=== PATIENT | male | born 1965 | race Caucasian/White ===

== ENCOUNTER → 2019-12-10 10:03 | Outpatient (BNVA) | payer OTHER, SELFPAY | PROVIDERS: Family Provider Electrodiagnostic Medicine; PCP Electrodiagnostic Medicine; Visit Provider Anesthesiology | DX: G89.29 Other chronic pain (principal); M25.511 Pain in right shoulder; M50.10 Cervical disc disorder with radiculopathy, unspecified cervical region; M05.9 Rheumatoid arthritis with rheumatoid factor, unspecified; Z79.891 Long term (current) use of opiate analgesic | CPT/HCPCS: 99214 ==

== ENCOUNTER → 2020-01-07 16:05 | Outpatient (BNVA) | payer MEDICARE, OTHER, SELFPAY | PROVIDERS: Family Provider Electrodiagnostic Medicine; PCP Electrodiagnostic Medicine; Visit Provider Internal Medicine Rheumatology | DX: M05.9 Rheumatoid arthritis with rheumatoid factor, unspecified (principal); Z79.899 Other long term (current) drug therapy; Z11.59 Encounter for screening for other viral diseases | CPT/HCPCS: 36415; 80076; 82306; 82565; 85651; 86140; 99214 ==

== ENCOUNTER → 2020-01-07 17:28 | Outpatient (BNVA) | payer MEDICARE, OTHER, SELFPAY | PROVIDERS: Family Provider Electrodiagnostic Medicine; PCP Electrodiagnostic Medicine; Visit Provider Internal Medicine Rheumatology | DX: Z79.899 Other long term (current) drug therapy (principal); M05.9 Rheumatoid arthritis with rheumatoid factor, unspecified; Z71.89 Other specified counseling | CPT/HCPCS: 85025 ==

== ENCOUNTER → 2020-01-29 08:47 | Outpatient (BNVA) | payer OTHER, SELFPAY | PROVIDERS: Family Provider Electrodiagnostic Medicine; PCP Electrodiagnostic Medicine; Visit Provider Anesthesiology | DX: G89.29 Other chronic pain (principal); M25.511 Pain in right shoulder; M50.10 Cervical disc disorder with radiculopathy, unspecified cervical region; M51.17 Intervertebral disc disorders with radiculopathy, lumbosacral region; Z79.891 Long term (current) use of opiate analgesic | CPT/HCPCS: 99214 ==

== ENCOUNTER → 2020-05-20 11:51 | Outpatient (BNVA) | payer MEDICARE, OTHER, SELFPAY | PROVIDERS: Family Provider Electrodiagnostic Medicine; PCP Electrodiagnostic Medicine; Visit Provider Internal Medicine Rheumatology | DX: M05.79 Rheumatoid arthritis with rheumatoid factor of multiple sites without organ or systems involvement (principal); Z79.899 Other long term (current) drug therapy | CPT/HCPCS: 36415; 80076; 82565; 85025; 85651; 86140; 99214 ==

== ENCOUNTER → 2020-06-03 09:24 | Outpatient (BNVA) | payer OTHER, SELFPAY | PROVIDERS: Family Provider Electrodiagnostic Medicine; PCP Electrodiagnostic Medicine; Visit Provider Anesthesiology | DX: G89.29 Other chronic pain (principal); M50.10 Cervical disc disorder with radiculopathy, unspecified cervical region; M25.511 Pain in right shoulder; M51.17 Intervertebral disc disorders with radiculopathy, lumbosacral region; Z79.891 Long term (current) use of opiate analgesic | CPT/HCPCS: 99214 ==

== ENCOUNTER → 2020-07-28 09:53 | Outpatient (BNVA) | payer MEDICARE, OTHER, SELFPAY | PROVIDERS: Family Provider Electrodiagnostic Medicine; PCP Electrodiagnostic Medicine; Visit Provider Internal Medicine Rheumatology | DX: M05.79 Rheumatoid arthritis with rheumatoid factor of multiple sites without organ or systems involvement (principal); M50.10 Cervical disc disorder with radiculopathy, unspecified cervical region; Z79.52 Long term (current) use of systemic steroids; Z79.899 Other long term (current) drug therapy | CPT/HCPCS: 99213 ==

== ENCOUNTER → 2020-07-29 10:00 | Outpatient (BNVA) | payer OTHER, SELFPAY | PROVIDERS: Family Provider Electrodiagnostic Medicine; PCP Electrodiagnostic Medicine; Visit Provider Anesthesiology | DX: G89.29 Other chronic pain (principal); M25.511 Pain in right shoulder; M50.10 Cervical disc disorder with radiculopathy, unspecified cervical region; M51.17 Intervertebral disc disorders with radiculopathy, lumbosacral region; Z79.891 Long term (current) use of opiate analgesic | CPT/HCPCS: 99214 ==

== ENCOUNTER → 2020-09-30 09:21 | Outpatient (BNVA) | payer OTHER, SELFPAY | PROVIDERS: Family Provider Electrodiagnostic Medicine; PCP Electrodiagnostic Medicine; Visit Provider Anesthesiology | DX: G89.29 Other chronic pain (principal); M25.511 Pain in right shoulder; M05.9 Rheumatoid arthritis with rheumatoid factor, unspecified; M51.17 Intervertebral disc disorders with radiculopathy, lumbosacral region; M50.10 Cervical disc disorder with radiculopathy, unspecified cervical region; Z79.891 Long term (current) use of opiate analgesic | CPT/HCPCS: 99214 ==

== ENCOUNTER → 2020-10-19 11:21 | Outpatient (BNVA) | payer OTHER, SELFPAY | PROVIDERS: Family Provider Electrodiagnostic Medicine; PCP Electrodiagnostic Medicine; Visit Provider Internal Medicine Rheumatology | DX: Z79.899 Other long term (current) drug therapy (principal) | CPT/HCPCS: 36415; 80076; 82565; 85025; 85651; 86140 ==

== ENCOUNTER → 2020-10-27 09:35 | Outpatient (BNVA) | payer MEDICARE, OTHER, SELFPAY | PROVIDERS: Family Provider Electrodiagnostic Medicine; PCP Electrodiagnostic Medicine; Visit Provider Internal Medicine Rheumatology | DX: M05.79 Rheumatoid arthritis with rheumatoid factor of multiple sites without organ or systems involvement (principal); Z79.52 Long term (current) use of systemic steroids; Z87.891 Personal history of nicotine dependence; Z79.899 Other long term (current) drug therapy | CPT/HCPCS: 99213 ==

== ENCOUNTER → 2020-11-26 10:14 | Outpatient (BNVA) | payer OTHER, SELFPAY | PROVIDERS: Family Provider Electrodiagnostic Medicine; PCP Electrodiagnostic Medicine; Visit Provider Anesthesiology | DX: G89.29 Other chronic pain (principal); M25.511 Pain in right shoulder; M50.10 Cervical disc disorder with radiculopathy, unspecified cervical region; M51.17 Intervertebral disc disorders with radiculopathy, lumbosacral region; Z79.891 Long term (current) use of opiate analgesic; Z79.899 Other long term (current) drug therapy | CPT/HCPCS: 99213 ==

== ENCOUNTER 2020-12-16 09:47 | Outpatient (CLI) | payer MEDICARE, OTHER, SELFPAY ==
--- NOTE | 2020-12-16 10:19 | ECG_ITS ---
[facility] Test Date: 2020-12-16 Pat Name: Tai Delgado Department: Room: Gender: Male Item Processing Clerk: : 1965 Requested By: Tony Joe Order Number: [id number] Navi MD: Edy Lund M.D. Measurements Intervals [place] Rate: 69 P: 56 NV: 142 QRS: 37 QRSD: 84 T: 48 QT: 337 QTc: 363 Interpretive Statements SINUS RHYTHM No previous ECG available for comparison Electronically Signed On 12-17-2020 18:07:45 ACCOUNTANT AUDITOR by Edy Lund M.D. [email or web address]
== END 2020-12-16 09:48 | disposition home or self-care (01) ==
LOC: RT 09:57
PROVIDERS: PCP Electrodiagnostic Medicine; Visit Provider Internal Medicine Rheumatology
DX: R00.2 Palpitations (principal); M05.79 Rheumatoid arthritis with rheumatoid factor of multiple sites without organ or systems involvement; Z79.899 Other long term (current) drug therapy
CPT/HCPCS: 36415; 80076; 81001; 82565; 82570; 84156; 85025; 85651; 86140; 93005

== ENCOUNTER → 2021-01-20 09:20 | Outpatient (BNVA) | payer OTHER, SELFPAY | PROVIDERS: PCP Electrodiagnostic Medicine; Visit Provider Anesthesiology | DX: G89.29 Other chronic pain (principal); M25.511 Pain in right shoulder; M50.10 Cervical disc disorder with radiculopathy, unspecified cervical region; M51.17 Intervertebral disc disorders with radiculopathy, lumbosacral region; Z79.891 Long term (current) use of opiate analgesic; Z79.899 Other long term (current) drug therapy | CPT/HCPCS: 99214 ==

== ENCOUNTER → 2021-03-11 12:48 | Outpatient (BNVA) | payer MEDICARE, OTHER, SELFPAY | PROVIDERS: PCP Electrodiagnostic Medicine; Visit Provider Internal Medicine Rheumatology | DX: M05.79 Rheumatoid arthritis with rheumatoid factor of multiple sites without organ or systems involvement (principal); Z79.899 Other long term (current) drug therapy; Z87.891 Personal history of nicotine dependence | CPT/HCPCS: 99214 ==

== ENCOUNTER → 2021-03-31 09:54 | Outpatient (BNVA) | payer OTHER, SELFPAY | PROVIDERS: PCP Electrodiagnostic Medicine; Visit Provider Anesthesiology | DX: G89.29 Other chronic pain (principal); M51.17 Intervertebral disc disorders with radiculopathy, lumbosacral region; M50.10 Cervical disc disorder with radiculopathy, unspecified cervical region; M25.511 Pain in right shoulder; Z79.899 Other long term (current) drug therapy; Z79.891 Long term (current) use of opiate analgesic; Z87.891 Personal history of nicotine dependence | CPT/HCPCS: 99214 ==

== ENCOUNTER → 2021-06-02 09:13 | Outpatient (BNVA) | payer OTHER, SELFPAY | PROVIDERS: PCP Electrodiagnostic Medicine; Visit Provider Anesthesiology | DX: G89.29 Other chronic pain (principal); M25.511 Pain in right shoulder; M50.10 Cervical disc disorder with radiculopathy, unspecified cervical region; M51.17 Intervertebral disc disorders with radiculopathy, lumbosacral region; Z79.891 Long term (current) use of opiate analgesic; Z79.899 Other long term (current) drug therapy | CPT/HCPCS: 99213 ==

== ENCOUNTER → 2021-06-17 09:09 | Outpatient (BNVA) | payer MEDICARE, OTHER, SELFPAY | PROVIDERS: PCP Electrodiagnostic Medicine; Visit Provider Internal Medicine Rheumatology | DX: Z79.899 Other long term (current) drug therapy (principal); M05.79 Rheumatoid arthritis with rheumatoid factor of multiple sites without organ or systems involvement; M05.9 Rheumatoid arthritis with rheumatoid factor, unspecified; Z71.89 Other specified counseling | CPT/HCPCS: 36415; 80076; 82565; 85025; 86140 ==

== ENCOUNTER → 2021-07-01 10:25 | Outpatient (BNVA) | payer MEDICARE, OTHER, SELFPAY | PROVIDERS: PCP Electrodiagnostic Medicine; Visit Provider Internal Medicine Rheumatology | DX: M05.79 Rheumatoid arthritis with rheumatoid factor of multiple sites without organ or systems involvement (principal); Z79.899 Other long term (current) drug therapy; M19.90 Unspecified osteoarthritis, unspecified site; Z79.52 Long term (current) use of systemic steroids; Z71.89 Other specified counseling; Z87.891 Personal history of nicotine dependence | CPT/HCPCS: 36415; 73130; 73630; 86431; 99214 ==

== ENCOUNTER 2021-07-01 13:49 | Outpatient (CLI) | payer MEDICARE, OTHER, SELFPAY ==
--- NOTE | 2021-07-01 14:11 | XR_ITS ---
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 Findings: No fractures or dislocations are seen. No bone destruction or erosion is noted. The joint spaces and soft tissues are normal. XR/XR foot RT min 3V* [id number] Impression: Negative right foot.
--- NOTE | 2021-07-01 14:11 | XR_ITS ---
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 Findings: No fractures or dislocations are seen. No bone destruction or erosion is noted. The joint spaces and soft tissues are normal. No periarticular demineralization or calcifications are seen. XR/XR foot LT min 3V* [id number] Impression: Negative left foot.
--- NOTE | 2021-07-01 14:11 | XR_ITS ---
WS: [email or web address] Left hand, 3 views, 07/01/2021 Clinical Data: M05.79 - Rheumatoid arthritis with rheumatoid factor of m... Comparison: None. Findings: No fractures or dislocations are seen. The soft tissues are unremarkable. The joint spaces are normal There is osteoarthritic change of the head of the left first metacarpal. No periarticular demineraliz ation or calcifications are seen. XR/XR hand LT min 3V* [id number] Impression: Minimal osteoarthritic change at the head of the left first metacarpal.
--- NOTE | 2021-07-01 14:11 | XR_ITS ---
WS: [email or web address] Right hand, 3 views, 07/01/2021 Clinical Data: M05.79 - Rheumatoid arthritis with rheumatoid factor of m... Comparison: None. Findings: No fractures or dislocations are seen. The soft tissues are unremarkable. The joint space s are normal No periarticular demineralization or calcifications are seen. XR/XR hand RT min 3V* [id number] Impression: Negative right hand.
== END 2021-07-01 13:50 | disposition home or self-care (01) ==
LOC: RAD 14:06
PROVIDERS: PCP Electrodiagnostic Medicine; Visit Provider Internal Medicine Rheumatology
DX: M05.79 Rheumatoid arthritis with rheumatoid factor of multiple sites without organ or systems involvement (principal); Z79.899 Other long term (current) drug therapy
CPT/HCPCS: 73130; 73630; 86431

== ENCOUNTER → 2021-07-28 09:38 | Outpatient (BNVA) | payer OTHER, SELFPAY | PROVIDERS: PCP Electrodiagnostic Medicine; Visit Provider Anesthesiology | DX: G89.29 Other chronic pain (principal); M25.511 Pain in right shoulder; M51.17 Intervertebral disc disorders with radiculopathy, lumbosacral region; M50.10 Cervical disc disorder with radiculopathy, unspecified cervical region; Z79.891 Long term (current) use of opiate analgesic; Z87.891 Personal history of nicotine dependence | CPT/HCPCS: 99213 ==

== ENCOUNTER → 2021-09-28 09:01 | Outpatient (BNVA) | payer OTHER, SELFPAY | PROVIDERS: PCP Electrodiagnostic Medicine; Visit Provider Anesthesiology | DX: G89.29 Other chronic pain (principal); M25.511 Pain in right shoulder; M50.10 Cervical disc disorder with radiculopathy, unspecified cervical region; Z79.899 Other long term (current) drug therapy; Z79.891 Long term (current) use of opiate analgesic | CPT/HCPCS: 99213 ==

== ENCOUNTER → 2021-10-05 10:03 | Outpatient (BNVA) | payer OTHER, SELFPAY | PROVIDERS: PCP Electrodiagnostic Medicine; Visit Provider Internal Medicine Rheumatology | DX: M05.79 Rheumatoid arthritis with rheumatoid factor of multiple sites without organ or systems involvement (principal); Z79.899 Other long term (current) drug therapy | CPT/HCPCS: 36415; 80076; 82565; 85025; 86140 ==

== ENCOUNTER 2021-10-19 14:55 | Outpatient (CLI) | payer MEDICARE, OTHER, SELFPAY ==
[2021-10-19 15:15] VITALS: BP 145/82; PULSE 82; RESP 18; TEMP 36.8; O2SAT 98
[2021-10-19] MEDS: acetaminophen 325 mg Tablet 650 MG PO (15:37)
[2021-10-19] MEDS: sodium chloride 0.9% 250 ML 75 ML IV (15:40)
[2021-10-19] MEDS: diphenhydrAMINE 50 mg/mL SDV 1mL 25 MG IV (15:41)
[2021-10-19 16:33] VITALS: BP 158/84; PULSE 81; RESP 18; TEMP 36.8; O2SAT 99
== END 2021-10-19 14:56 | disposition home or self-care (01) ==
PROVIDERS: PCP Electrodiagnostic Medicine; Referring Provider Internal Medicine Rheumatology; Visit Provider Internal Medicine Rheumatology
DX: M05.79 Rheumatoid arthritis with rheumatoid factor of multiple sites without organ or systems involvement (principal)
CPT/HCPCS: 96365; 96375; J1200; J1602; J7050

== ENCOUNTER 2021-11-16 13:24 | Outpatient (CLI) | payer MEDICARE, OTHER, SELFPAY ==
[2021-11-16 13:43] VITALS: BP 130/77; PULSE 80; RESP 18; TEMP 37.1; O2SAT 97
[2021-11-16] MEDS: acetaminophen 325 mg Tablet 650 MG PO (14:25)
[2021-11-16] MEDS: sodium chloride 0.9% 250 ML 75 ML IV (14:27)
[2021-11-16] MEDS: diphenhydrAMINE 50 mg/mL SDV 1mL 25 MG IVP (14:28)
--- NOTE | 2021-11-16 14:48 | PC.NURSE ---
Pt presented to infusion suite with a nodule on Right arm lateral to AC space. He previously c/o a nodule in the same vicinity at last month's visit, but was cleared for infusion. He has an appointment with an orthopedist on 11/25/21. The area is slightly reddened, with no warmth to the touch. Pt is afebrile. I contacted Dr. Gao, and he spoke with the patient. Per Dr. Gao,it was decided after their conversation to proceed with the infusion today, and follow-up for his next infusion in 8 weeks.
[2021-11-16 15:14] VITALS: BP 138/90; PULSE 76; RESP 18; TEMP 36.9; O2SAT 98
== END 2021-11-16 13:25 | disposition home or self-care (01) ==
PROVIDERS: PCP Electrodiagnostic Medicine; Visit Provider Internal Medicine Rheumatology
DX: M05.79 Rheumatoid arthritis with rheumatoid factor of multiple sites without organ or systems involvement (principal)
CPT/HCPCS: 96365; 96375; J1200; J1602; J7050

== ENCOUNTER 2021-11-30 11:16 | Outpatient (CLI) | payer MEDICARE, OTHER, SELFPAY ==
[2021-11-30 11:46] LABS: Basophils % 0.6 %; Eosinophils # 0.4 10^3/uL (0.0-0.8); Eosinophils % 5.4 %; Hemoglobin 14.6 g/dL (11.7-16.6); Lymphocytes # 1.5 10^3/uL (0.8-4.8); Lymphocytes % 21.2 %; Mean Corpuscular HGB Conc 33.2 g/dL (30.0-36.0); Mean Corpuscular Hemoglobin 30.4 pg (28.0-34.0); Mean Corpuscular Volume 91.5 fl (80-94); Mean Platelet Volume 8.6 fL (7.4-10.4); Monocytes # 0.5 10^3/uL (0.2-0.9); Monocytes % 7.3 %; Neutrophils # 4.55 10^3/uL (1.8-7.7); Neutrophils % 65.2 %; Nucleated Red Blood Cells % 0 %; Platelet Count 303 10^3/cmm (130-400); Red Blood Count 4.81 10^6/uL (4.1-5.3); Red Cell Distribution Width 11.9 % (12.1-15.1)
[2021-11-30 12:12] LABS: Alanine Aminotransferase 26 U/L (0-41); Albumin Level 3.6 g/dL (3.5-5.2); Alkaline Phosphatase 92 IU/L (40-130); Aspartate Amino Transferase 18 U/L (0-40); C Reactive Protein 7.1 mg/L (0.0-4.9); Globulin 2.8 g/dL (1.3-4.6); Glomerular Filtration Rate 86.7 mL/min (90-130); Total Bilirubin 0.2 mg/dL (0.15-1.2); Total Protein 6.4 g/dL (6.6-8.7)
== END 2021-11-30 11:17 | disposition home or self-care (01) ==
PROVIDERS: PCP Electrodiagnostic Medicine; Visit Provider Internal Medicine Rheumatology
DX: M05.9 Rheumatoid arthritis with rheumatoid factor, unspecified (principal); Z79.899 Other long term (current) drug therapy; M19.90 Unspecified osteoarthritis, unspecified site
CPT/HCPCS: 36415; 80076; 82565; 85025; 86140

== ENCOUNTER → 2021-12-27 11:04 | Outpatient (BNVA) | payer MEDICARE, OTHER, SELFPAY | PROVIDERS: PCP Electrodiagnostic Medicine; Visit Provider Internal Medicine Rheumatology | DX: M05.79 Rheumatoid arthritis with rheumatoid factor of multiple sites without organ or systems involvement (principal); Z79.899 Other long term (current) drug therapy; Z79.52 Long term (current) use of systemic steroids; Z71.89 Other specified counseling | CPT/HCPCS: 99214 ==

== ENCOUNTER 2022-01-05 11:27 | Outpatient (CLI) | payer MEDICARE, OTHER, SELFPAY ==
[2022-01-05 11:56] VITALS: BP 111/69; PULSE 87; RESP 18; TEMP 37.1; O2SAT 95
[2022-01-05 12:11] LABS: Basophils % 0.5 %; Eosinophils # 0.1 10^3/uL (0.0-0.8); Eosinophils % 0.6 %; Hematocrit 46.3 % (42.0-52.0); Hemoglobin 14.7 g/dL (11.7-16.6); Lymphocytes # 0.7 10^3/uL (0.8-4.8); Lymphocytes % 7.8 %; Mean Corpuscular HGB Conc 31.7 g/dL (30.0-36.0); Mean Corpuscular Hemoglobin 28.9 pg (28.0-34.0); Mean Corpuscular Volume 91.1 fl (80-94); Mean Platelet Volume 8.7 fL (7.4-10.4); Monocytes # 0.4 10^3/uL (0.2-0.9); Monocytes % 4.2 %; Neutrophils # 7.67 10^3/uL (1.8-7.7); Neutrophils % 86.6 %; Nucleated Red Blood Cells % 0 %; Platelet Count 315 10^3/cmm (130-400); Red Blood Count 5.08 10^6/uL (4.1-5.3); Red Cell Distribution Width 12.4 % (12.1-15.1); White Blood Count 8.9 10^3/uL (4.0-10.0)
[2022-01-05 12:18] LABS: Erythrocyte Sedimentation Rate 47 mm/hr (0-10)
[2022-01-05] MEDS: sodium chloride 0.9% 250 ML 50 ML IV (12:18)
[2022-01-05] MEDS: acetaminophen 325 mg Tablet 650 MG PO (12:21)
[2022-01-05] MEDS: diphenhydrAMINE 50 mg/mL SDV 1mL 25 MG IV (12:22)
[2022-01-05 12:25] LABS: Alanine Aminotransferase 20 U/L (0-41); Albumin Level 3.8 g/dL (3.5-5.2); Alkaline Phosphatase 111 IU/L (40-130); Aspartate Amino Transferase 16 U/L (0-40); Globulin 3.5 g/dL (1.3-4.6); Glomerular Filtration Rate 86.7 mL/min (90-130); Total Bilirubin 0.3 mg/dL (0.15-1.2); Total Protein 7.3 g/dL (6.6-8.7)
[2022-01-05 13:13] VITALS: BP 111/67; PULSE 82; RESP 18; TEMP 36.8; O2SAT 97
== END 2022-01-05 11:28 | disposition home or self-care (01) ==
PROVIDERS: PCP Electrodiagnostic Medicine; Referring Provider Internal Medicine Rheumatology; Visit Provider Internal Medicine Rheumatology
DX: M05.79 Rheumatoid arthritis with rheumatoid factor of multiple sites without organ or systems involvement (principal); Z79.899 Other long term (current) drug therapy
CPT/HCPCS: 80076; 82565; 85025; 85651; 96365; 96375; J1200; J1602; J7050

== ENCOUNTER 2022-03-02 10:41 | Outpatient (CLI) | payer MEDICARE, OTHER, SELFPAY ==
[2022-03-02 10:55] VITALS: BP 135/82; PULSE 79; RESP 18; TEMP 36.8; O2SAT 96
[2022-03-02 11:13] LABS: Basophils % 0.4 %; Eosinophils % 0.2 %; Hematocrit 44.4 % (42.0-52.0); Hemoglobin 14.4 g/dL (11.7-16.6); Lymphocytes # 0.7 10^3/uL (0.8-4.8); Lymphocytes % 6.4 %; Mean Corpuscular HGB Conc 32.4 g/dL (30.0-36.0); Mean Corpuscular Hemoglobin 28.4 pg (28.0-34.0); Mean Corpuscular Volume 87.6 fl (80-94); Mean Platelet Volume 8.3 fL (7.4-10.4); Monocytes # 0.4 10^3/uL (0.2-0.9); Monocytes % 4.2 %; Neutrophils # 9.19 10^3/uL (1.8-7.7); Neutrophils % 88.4 %; Nucleated Red Blood Cells % 0 %; Platelet Count 273 10^3/cmm (130-400); Red Blood Count 5.07 10^6/uL (4.1-5.3); Red Cell Distribution Width 13.2 % (12.1-15.1); White Blood Count 10.4 10^3/uL (4.0-10.0)
[2022-03-02] MEDS: acetaminophen 325 mg Tablet 650 MG PO (11:13)
[2022-03-02] MEDS: diphenhydrAMINE 50 mg/mL SDV 1mL 25 MG IV (11:15)
[2022-03-02] MEDS: sodium chloride 0.9% 250 ML 50 ML IV (11:15)
[2022-03-02 11:22] LABS: Erythrocyte Sedimentation Rate 35 mm/hr (0-10)
[2022-03-02 11:36] LABS: Alanine Aminotransferase 24 U/L (0-41); Albumin Level 3.6 g/dL (3.5-5.2); Alkaline Phosphatase 92 IU/L (40-130); Aspartate Amino Transferase 14 U/L (0-40); Globulin 3.4 g/dL (1.3-4.6); Glomerular Filtration Rate 99.3 mL/min (90-130); Total Bilirubin 0.3 mg/dL (0.15-1.2)
[2022-03-02 12:06] VITALS: BP 113/76; PULSE 70; RESP 18; TEMP 36.5; O2SAT 95
== END 2022-03-02 10:42 | disposition home or self-care (01) ==
PROVIDERS: PCP Electrodiagnostic Medicine; Referring Provider Internal Medicine Rheumatology; Visit Provider Internal Medicine Rheumatology
DX: M05.79 Rheumatoid arthritis with rheumatoid factor of multiple sites without organ or systems involvement (principal); Z79.899 Other long term (current) drug therapy
CPT/HCPCS: 80076; 82565; 85025; 85651; 96365; 96375; J1200; J1602; J7050

== ENCOUNTER → 2022-04-20 10:38 | Outpatient (BNVA) | payer MEDICARE, OTHER, SELFPAY | PROVIDERS: PCP Electrodiagnostic Medicine; Visit Provider Internal Medicine Rheumatology | DX: M05.79 Rheumatoid arthritis with rheumatoid factor of multiple sites without organ or systems involvement (principal); L40.0 Psoriasis vulgaris; Z79.899 Other long term (current) drug therapy; Z79.52 Long term (current) use of systemic steroids; Z71.89 Other specified counseling | CPT/HCPCS: 99214 ==

== ENCOUNTER 2022-04-27 09:51 | Outpatient (CLI) | payer MEDICARE, OTHER, SELFPAY ==
[2022-04-27 10:45] VITALS: BP 121/71; PULSE 68; RESP 18; TEMP 36.9; O2SAT 95
[2022-04-27] MEDS: sodium chloride 0.9% 250 ML 50 ML IV (10:48)
[2022-04-27 10:49] LABS: Alanine Aminotransferase 17 U/L (0-41); Albumin Level 3.6 g/dL (3.5-5.2); Alkaline Phosphatase 95 IU/L (40-130); Aspartate Amino Transferase 12 U/L (0-40); Globulin 2.9 g/dL (1.3-4.6); Glomerular Filtration Rate 86.7 mL/min (90-130); Total Bilirubin 0.3 mg/dL (0.15-1.2); Total Protein 6.5 g/dL (6.6-8.7)
[2022-04-27] MEDS: acetaminophen 325 mg Tablet 650 MG PO (10:49)
[2022-04-27] MEDS: diphenhydrAMINE 50 mg/mL SDV 1mL 25 MG IVP (10:50)
[2022-04-27 11:06] LABS: Basophils # 0.1 10^3/uL (0.0-0.1); Basophils % 0.4 %; Eosinophils # 0.1 10^3/uL (0.0-0.8); Eosinophils % 0.4 %; Erythrocyte Sedimentation Rate 28 mm/hr (0-10); Hematocrit 43.3 % (42.0-52.0); Hemoglobin 14.2 g/dL (11.7-16.6); Lymphocytes # 0.7 10^3/uL (0.8-4.8); Lymphocytes % 6.2 %; Mean Corpuscular HGB Conc 32.8 g/dL (30.0-36.0); Mean Corpuscular Hemoglobin 28.9 pg (28.0-34.0); Mean Platelet Volume 8.6 fL (7.4-10.4); Monocytes # 0.5 10^3/uL (0.2-0.9); Monocytes % 4.5 %; Neutrophils # 10.12 10^3/uL (1.8-7.7); Neutrophils % 87.9 %; Nucleated Red Blood Cells % 0 %; Platelet Count 279 10^3/cmm (130-400); Red Blood Count 4.92 10^6/uL (4.1-5.3); Red Cell Distribution Width 13.7 % (12.1-15.1); White Blood Count 11.5 10^3/uL (4.0-10.0)
[2022-04-27 11:59] VITALS: BP 134/75; PULSE 62; RESP 18; TEMP 36.3; O2SAT 98
== END 2022-04-27 09:52 | disposition home or self-care (01) ==
PROVIDERS: PCP Electrodiagnostic Medicine; Referring Provider Internal Medicine Rheumatology; Visit Provider Internal Medicine Rheumatology
DX: M05.79 Rheumatoid arthritis with rheumatoid factor of multiple sites without organ or systems involvement (principal); Z79.899 Other long term (current) drug therapy
CPT/HCPCS: 80076; 82565; 85025; 85651; 96365; 96375; J1200; J1602; J7050

== ENCOUNTER → 2022-06-14 15:17 | Outpatient (BNVA) | payer MEDICARE, OTHER, SELFPAY | PROVIDERS: PCP Electrodiagnostic Medicine; Visit Provider Internal Medicine Rheumatology | DX: M05.9 Rheumatoid arthritis with rheumatoid factor, unspecified (principal) | CPT/HCPCS: 96372; J1030 ==

== ENCOUNTER 2022-06-27 11:12 | Outpatient (CLI) | payer MEDICARE, OTHER, SELFPAY ==
[2022-06-27 11:29] VITALS: BP 129/75; PULSE 70; RESP 18; TEMP 36.4; O2SAT 96
[2022-06-27 12:07] LABS: Basophils % 0.2 %; Eosinophils % 0.2 %; Hematocrit 44.5 % (42.0-52.0); Hemoglobin 14.5 g/dL (11.7-16.6); Lymphocytes # 0.6 10^3/uL (0.8-4.8); Lymphocytes % 4.8 %; Mean Corpuscular HGB Conc 32.6 g/dL (30.0-36.0); Mean Corpuscular Hemoglobin 28.9 pg (28.0-34.0); Mean Corpuscular Volume 88.8 fl (80-94); Mean Platelet Volume 8.4 fL (7.4-10.4); Monocytes # 0.6 10^3/uL (0.2-0.9); Monocytes % 4.9 %; Neutrophils # 11.39 10^3/uL (1.8-7.7); Neutrophils % 89.3 %; Nucleated Red Blood Cells % 0 %; Platelet Count 263 10^3/cmm (130-400); Red Blood Count 5.01 10^6/uL (4.1-5.3); Red Cell Distribution Width 13.2 % (12.1-15.1); White Blood Count 12.8 10^3/uL (4.0-10.0)
[2022-06-27 12:18] LABS: Erythrocyte Sedimentation Rate 32 mm/hr (0-10)
[2022-06-27] MEDS: sodium chloride 0.9% 250 ML 50 ML IV (12:18)
[2022-06-27] MEDS: acetaminophen 325 mg Tablet 650 MG PO (12:18)
[2022-06-27] MEDS: diphenhydrAMINE 50 mg/mL SDV 1mL 25 MG IVP ×2 (12:20→13:27)
[2022-06-27 12:41] LABS: Alanine Aminotransferase 17 U/L (0-41); Albumin Level 3.7 g/dL (3.5-5.2); Alkaline Phosphatase 95 IU/L (40-130); Aspartate Amino Transferase 15 U/L (0-40); Globulin 2.7 g/dL (1.3-4.6); Glomerular Filtration Rate 99.3 mL/min (90-130); Total Bilirubin 0.3 mg/dL (0.15-1.2); Total Protein 6.4 g/dL (6.6-8.7)
[2022-06-27 13:22] VITALS: BP 155/77; PULSE 75; RESP 18; TEMP 36.3; O2SAT 98
[2022-06-27 14:18] VITALS: BP 113/69; PULSE 67; RESP 18; TEMP 36.4; O2SAT 97
--- NOTE | 2022-06-27 14:47 | PC.NURSE ---
Pt experienced an infusion reaction after Orencia was administered. Dr. Gao's office was contacted, and benadryl / solumedrol was administered. Pt's v/s were monitored and he was retained in the infusion suite for observation. S/S of ongoing problems to report after leaving infusion suite were discussed, and per Dr. Gao, patient is instructed to call his office within 2 days to report condition. Any acute exacerbations, patient is to report to the Emergency Department. Patient voices understanding.
[2022-06-27 15:00] VITALS: BP 130/79; PULSE 67; RESP 18; TEMP 36.4; O2SAT 98
== END 2022-06-27 11:13 | disposition home or self-care (01) ==
PROVIDERS: PCP Electrodiagnostic Medicine; Referring Provider Internal Medicine Rheumatology; Visit Provider Internal Medicine Rheumatology
DX: M06.9 Rheumatoid arthritis, unspecified (principal); Z79.899 Other long term (current) drug therapy
CPT/HCPCS: 80076; 82565; 85025; 85651; 96365; 96375; 96376; J0129; J1200; J2930; J7050

== ENCOUNTER 2022-08-01 12:20 | Outpatient (CLI) | payer MEDICARE, OTHER, SELFPAY ==
[2022-08-01 13:05] VITALS: BP 132/77; PULSE 78; RESP 18; TEMP 36.6; O2SAT 96
[2022-08-01] MEDS: sodium chloride 0.9% 250 ML 50 ML IV (13:44)
[2022-08-01] MEDS: acetaminophen 325 mg Tablet 650 MG PO (13:46)
[2022-08-01] MEDS: diphenhydrAMINE 50 mg/mL SDV 1mL IVP (13:47)
[2022-08-01 15:02] VITALS: BP 146/80; PULSE 72; RESP 18; TEMP 36.3; O2SAT 95
== END 2022-08-01 12:21 | disposition home or self-care (01) ==
PROVIDERS: PCP Electrodiagnostic Medicine; Visit Provider Internal Medicine Rheumatology
DX: M06.9 Rheumatoid arthritis, unspecified (principal)
CPT/HCPCS: 96365; 96375; J0129; J1200; J2930; J7050

== ENCOUNTER → 2022-08-16 10:05 | Outpatient (BNVA) | payer MEDICARE, OTHER, SELFPAY | PROVIDERS: PCP Electrodiagnostic Medicine; Visit Provider Internal Medicine Rheumatology | DX: M05.79 Rheumatoid arthritis with rheumatoid factor of multiple sites without organ or systems involvement (principal); Z71.89 Other specified counseling; Z79.899 Other long term (current) drug therapy; Z87.2 Personal history of diseases of the skin and subcutaneous tissue; Z79.52 Long term (current) use of systemic steroids | CPT/HCPCS: 99214 ==

== ENCOUNTER 2022-08-29 11:13 | Outpatient (CLI) | payer MEDICARE, OTHER, SELFPAY ==
[2022-08-29 11:27] VITALS: BP 134/82; PULSE 72; RESP 18; TEMP 37.3; O2SAT 98
[2022-08-29 11:53] LABS: Basophils % 0.4 %; Eosinophils % 0.4 %; Hematocrit 45.7 % (42.0-52.0); Hemoglobin 14.5 g/dL (11.7-16.6); Lymphocytes # 0.7 10^3/uL (0.8-4.8); Lymphocytes % 7.4 %; Mean Corpuscular HGB Conc 31.7 g/dL (30.0-36.0); Mean Corpuscular Hemoglobin 28.8 pg (28.0-34.0); Mean Corpuscular Volume 90.7 fl (80-94); Mean Platelet Volume 8.7 fL (7.4-10.4); Monocytes # 0.4 10^3/uL (0.2-0.9); Monocytes % 4.2 %; Neutrophils # 8.05 10^3/uL (1.8-7.7); Neutrophils % 86.8 %; Nucleated Red Blood Cells % 0 %; Platelet Count 269 10^3/cmm (130-400); Red Blood Count 5.04 10^6/uL (4.1-5.3); Red Cell Distribution Width 13.7 % (12.1-15.1); White Blood Count 9.3 10^3/uL (4.0-10.0)
[2022-08-29 11:58] LABS: Erythrocyte Sedimentation Rate 21 mm/hr (0-10)
[2022-08-29] MEDS: sodium chloride 0.9% 250 ML 50 ML IV (12:01)
[2022-08-29] MEDS: acetaminophen 325 mg Tablet 650 MG PO (12:02)
[2022-08-29] MEDS: diphenhydrAMINE 50 mg/mL SDV 1mL IVP (12:04)
[2022-08-29 12:36] LABS: Alanine Aminotransferase 20 U/L (0-41); Albumin Level 3.7 g/dL (3.5-5.2); Alkaline Phosphatase 110 U/L (40-130); Aspartate Amino Transferase 13 U/L (0-40); Globulin 2.8 g/dL (1.3-4.6); Glomerular Filtration Rate 86.4 mL/min (90-130); Total Bilirubin 0.2 mg/dL (0.15-1.2); Total Protein 6.5 g/dL (6.6-8.7)
[2022-08-29 13:24] VITALS: BP 129/81; PULSE 73; RESP 18; TEMP 37; O2SAT 96
== END 2022-08-29 11:14 | disposition home or self-care (01) ==
PROVIDERS: PCP Electrodiagnostic Medicine; Visit Provider Internal Medicine Rheumatology
DX: M06.9 Rheumatoid arthritis, unspecified (principal)
CPT/HCPCS: 80076; 82565; 85025; 85651; 96365; 96375; A4222; J0129; J1200; J2930; J7050

== ENCOUNTER → 2022-09-20 10:51 | Outpatient (BNVA) | payer MEDICARE, OTHER, SELFPAY | PROVIDERS: PCP Electrodiagnostic Medicine; Referring Provider Dermatology; Visit Provider Podiatrist Foot & Ankle Surgery | DX: G57.63 Lesion of plantar nerve, bilateral lower limbs (principal); M24.572 Contracture, left ankle; M24.571 Contracture, right ankle | CPT/HCPCS: 64455; 73630; 99204; J1100; J3301 ==

== ENCOUNTER 2022-09-27 09:48 | Outpatient (CLI) | payer MEDICARE, OTHER, SELFPAY ==
[2022-09-27 10:01] VITALS: BP 135/89; PULSE 75; RESP 18; TEMP 36.5; O2SAT 97
[2022-09-27] MEDS: sodium chloride 0.9% 250 ML 50 ML IV (10:17)
[2022-09-27] MEDS: acetaminophen 325 mg Tablet 650 MG PO (10:18)
[2022-09-27] MEDS: diphenhydrAMINE 50 mg/mL SDV 1mL IVP (10:19)
[2022-09-27 11:31] VITALS: BP 123/78; PULSE 72; RESP 18; TEMP 36.3; O2SAT 96
== END 2022-09-27 09:49 | disposition home or self-care (01) ==
PROVIDERS: PCP Electrodiagnostic Medicine; Visit Provider Internal Medicine Rheumatology
DX: M06.9 Rheumatoid arthritis, unspecified (principal)
CPT/HCPCS: 96365; 96375; A4222; J0129; J1200; J2930; J7050

== ENCOUNTER → 2022-10-20 09:08 | Outpatient (BNVA) | payer MEDICARE, OTHER, SELFPAY | PROVIDERS: PCP Electrodiagnostic Medicine; Visit Provider Podiatrist Foot & Ankle Surgery | DX: G57.63 Lesion of plantar nerve, bilateral lower limbs (principal); M24.572 Contracture, left ankle; M24.571 Contracture, right ankle | CPT/HCPCS: 99213 ==

== ENCOUNTER 2022-10-25 09:13 | Outpatient (CLI) | payer MEDICARE, OTHER, SELFPAY ==
[2022-10-25 09:48] VITALS: BP 149/83; PULSE 73; RESP 18; TEMP 36.6; O2SAT 95
[2022-10-25 09:48] LABS: Basophils # 0.1 10^3/uL (0.0-0.1); Basophils % 0.6 %; Eosinophils # 0.1 10^3/uL (0.0-0.8); Eosinophils % 0.9 %; Hematocrit 45.1 % (42.0-52.0); Hemoglobin 14.7 g/dL (11.7-16.6); Lymphocytes # 1.1 10^3/uL (0.8-4.8); Lymphocytes % 10.5 %; Mean Corpuscular HGB Conc 32.6 g/dL (30.0-36.0); Mean Corpuscular Hemoglobin 29.6 pg (28.0-34.0); Mean Corpuscular Volume 90.7 fl (80-94); Mean Platelet Volume 8.7 fL (7.4-10.4); Monocytes # 0.7 10^3/uL (0.2-0.9); Monocytes % 7.1 %; Neutrophils # 8.31 10^3/uL (1.8-7.7); Neutrophils % 79.7 %; Nucleated Red Blood Cells % 0 %; Platelet Count 243 10^3/cmm (130-400); Red Blood Count 4.97 10^6/uL (4.1-5.3); Red Cell Distribution Width 14.3 % (12.1-15.1); White Blood Count 10.4 10^3/uL (4.0-10.0)
[2022-10-25 09:49] LABS: Erythrocyte Sedimentation Rate 16 mm/hr (0-10)
[2022-10-25] MEDS: sodium chloride 0.9% 250 ML 50 ML IV (10:03)
[2022-10-25] MEDS: acetaminophen 325 mg Tablet 650 MG PO (10:04)
[2022-10-25] MEDS: diphenhydrAMINE 50 mg/mL SDV 1mL IVP (10:06)
[2022-10-25 11:25] LABS: Alanine Aminotransferase 16 U/L (0-41); Albumin Level 3.6 g/dL (3.5-5.2); Alkaline Phosphatase 108 U/L (40-130); Aspartate Amino Transferase 12 U/L (0-40); Globulin 2.9 g/dL (1.3-4.6); Glomerular Filtration Rate 98.9 mL/min (90-130); Total Bilirubin 0.3 mg/dL (0.15-1.2); Total Protein 6.5 g/dL (6.6-8.7)
[2022-10-25 11:46] VITALS: BP 137/83; PULSE 67; RESP 18; TEMP 36.6; O2SAT 96
== END 2022-10-25 09:14 | disposition home or self-care (01) ==
PROVIDERS: PCP Electrodiagnostic Medicine; Visit Provider Internal Medicine Rheumatology
DX: M06.9 Rheumatoid arthritis, unspecified (principal)
CPT/HCPCS: 80076; 82565; 85025; 85651; 96365; 96375; A4222; J0129; J1200; J2930; J7050

== ENCOUNTER 2022-11-23 12:54 | Outpatient (CLI) | payer MEDICARE, OTHER, SELFPAY ==
[2022-11-23 13:22] VITALS: BP 143/81; PULSE 79; RESP 18; TEMP 36.7; O2SAT 96
[2022-11-23] MEDS: sodium chloride 0.9% 250 ML 50 ML IV (13:47)
[2022-11-23] MEDS: acetaminophen 325 mg Tablet 650 MG PO (13:48)
[2022-11-23] MEDS: diphenhydrAMINE 50 mg/mL SDV 1mL 25 MG IVP (13:50)
[2022-11-23 15:03] VITALS: BP 156/84; PULSE 72; RESP 18; TEMP 36.6; O2SAT 97
== END 2022-11-23 12:55 | disposition home or self-care (01) ==
PROVIDERS: PCP Electrodiagnostic Medicine; Visit Provider Internal Medicine Rheumatology
DX: M05.79 Rheumatoid arthritis with rheumatoid factor of multiple sites without organ or systems involvement (principal); L40.0 Psoriasis vulgaris; Z71.89 Other specified counseling; Z79.899 Other long term (current) drug therapy; Z79.52 Long term (current) use of systemic steroids
CPT/HCPCS: 96365; 96375; 99214; A4222; J0129; J1200; J2930; J7050

== ENCOUNTER 2022-12-21 08:52 | Outpatient (CLI) | payer MEDICARE, OTHER, SELFPAY ==
[2022-12-21 09:03] VITALS: BP 140/82; PULSE 73; RESP 18; TEMP 36.9; O2SAT 97
[2022-12-21 09:25] LABS: Basophils # 0.1 10^3/uL (0.0-0.1); Basophils % 0.6 %; Eosinophils # 0.1 10^3/uL (0.0-0.8); Eosinophils % 1.4 %; Hematocrit 48.9 % (42.0-52.0); Hemoglobin 15.8 g/dL (11.7-16.6); Lymphocytes # 1.2 10^3/uL (0.8-4.8); Lymphocytes % 12.9 %; Mean Corpuscular HGB Conc 32.3 g/dL (30.0-36.0); Mean Corpuscular Hemoglobin 29.5 pg (28.0-34.0); Mean Corpuscular Volume 91.2 fl (80-94); Mean Platelet Volume 8.9 fL (7.4-10.4); Monocytes # 0.6 10^3/uL (0.2-0.9); Monocytes % 6.1 %; Neutrophils # 7.24 10^3/uL (1.8-7.7); Neutrophils % 78.2 %; Nucleated Red Blood Cells % 0 %; Platelet Count 271 10^3/cmm (130-400); Red Blood Count 5.36 10^6/uL (4.1-5.3); Red Cell Distribution Width 13.5 % (12.1-15.1); White Blood Count 9.3 10^3/uL (4.0-10.0)
[2022-12-21] MEDS: sodium chloride 0.9% 250 ML 50 ML IV (09:37)
[2022-12-21] MEDS: acetaminophen 325 mg Tablet 650 MG PO (09:38)
[2022-12-21] MEDS: diphenhydrAMINE 50 mg/mL SDV 1mL 25 MG IVP (09:39)
[2022-12-21 09:43] LABS: Erythrocyte Sedimentation Rate 52 mm/hr (0-10)
[2022-12-21 09:48] LABS: Alanine Aminotransferase 14 U/L (0-41); Alkaline Phosphatase 112 U/L (40-130); Aspartate Amino Transferase 13 U/L (0-40); Globulin 2.7 g/dL (1.3-4.6); Glomerular Filtration Rate 86.4 mL/min (90-130); Total Bilirubin 0.2 mg/dL (0.15-1.2); Total Protein 6.7 g/dL (6.6-8.7)
[2022-12-21 10:49] VITALS: BP 141/83; PULSE 69; RESP 18; TEMP 36.7; O2SAT 98
== END 2022-12-21 08:53 | disposition home or self-care (01) ==
LOC: ONCMED 08:52
PROVIDERS: PCP Electrodiagnostic Medicine; Visit Provider Internal Medicine Rheumatology
DX: M06.9 Rheumatoid arthritis, unspecified (principal); Z79.899 Other long term (current) drug therapy
CPT/HCPCS: 80076; 82565; 85025; 85651; 96365; 96375; A4222; J0129; J1200; J2930; J7050

== ENCOUNTER 2023-02-15 09:42 | Oncology outpatient (recurring) (ONCR) | payer MEDICARE, OTHER, SELFPAY ==
[2023-01-18 09:18] VITALS: BP 135/73; PULSE 71; RESP 18; TEMP 36.4; O2SAT 97
[2023-01-18] MEDS: sodium chloride 0.9% 250 ML 50 ML IV (09:42)
[2023-01-18] MEDS: acetaminophen 325 mg Tablet 650 MG PO (09:43)
[2023-01-18] MEDS: diphenhydrAMINE 50 mg/mL SDV 1mL 25 MG IVP (09:44)
[2023-01-18 11:04] VITALS: BP 131/75; PULSE 68; RESP 18; TEMP 36.5; O2SAT 96
[2023-02-15 09:22] VITALS: BMI 27.8
[2023-02-15] MEDS: sodium chloride 0.9% 250 ML 75 ML IV (09:44)
[2023-02-15] MEDS: acetaminophen 325 mg Tablet 650 MG PO (09:48)
[2023-02-15] MEDS: diphenhydrAMINE 50 mg/mL SDV 1mL 25 MG IVP (09:49)
[2023-02-15] MEDS: abatacept 1,000 MG in sodium chloride 0.9% (100 ml) 100 ML 200 MG IV (10:25)
[2023-02-15 10:30] VITALS: BP 120/78; PULSE 63; RESP 16; TEMP 36.1; O2SAT 97
[2023-02-15 11:35] VITALS: BP 119/75; PULSE 65; RESP 16; TEMP 36.1; O2SAT 97
== END 2023-02-17 23:59 | disposition home or self-care (01) ==
PROVIDERS: PCP Electrodiagnostic Medicine; Visit Provider Internal Medicine Rheumatology
DX: M05.79 Rheumatoid arthritis with rheumatoid factor of multiple sites without organ or systems involvement (principal); L40.0 Psoriasis vulgaris; Z79.52 Long term (current) use of systemic steroids; Z79.899 Other long term (current) drug therapy
CPT/HCPCS: 96365; 96375; A4222; J0129; J1200; J2930; J7050

== ENCOUNTER → 2023-02-22 14:49 | Outpatient (BNVA) | payer MEDICARE, OTHER, SELFPAY | PROVIDERS: PCP Electrodiagnostic Medicine; Visit Provider Internal Medicine Rheumatology | DX: M05.79 Rheumatoid arthritis with rheumatoid factor of multiple sites without organ or systems involvement (principal); L40.0 Psoriasis vulgaris; Z71.89 Other specified counseling; Z79.899 Other long term (current) drug therapy | CPT/HCPCS: 99214 ==

== ENCOUNTER 2023-03-15 08:47 | Oncology outpatient (recurring) (ONCR) | payer MEDICARE, OTHER, SELFPAY ==
[2023-03-15 09:30] VITALS: BP 120/78; PULSE 74; RESP 18; TEMP 36.4; O2SAT 98
[2023-03-15] MEDS: acetaminophen 325 mg Tablet 650 MG PO (09:31)
[2023-03-15] MEDS: diphenhydrAMINE 50 mg/mL SDV 1mL 25 MG IVP (09:32)
[2023-03-15] MEDS: sodium chloride 0.9% 250 ML 75 ML IV (09:33)
[2023-03-15 09:44] LABS: Basophils # 0.1 10^3/uL (0.0-0.1); Basophils % 0.5 %; Eosinophils # 0.1 10^3/uL (0.0-0.8); Eosinophils % 1.1 %; Hematocrit 51.4 % (42.0-52.0); Hemoglobin 16.7 g/dL (11.7-16.6); Lymphocytes # 1.2 10^3/uL (0.8-4.8); Lymphocytes % 10.5 %; Mean Corpuscular HGB Conc 32.5 g/dL (30.0-36.0); Mean Corpuscular Hemoglobin 29.7 pg (28.0-34.0); Mean Corpuscular Volume 91.3 fl (80-94); Mean Platelet Volume 8.7 fL (7.4-10.4); Monocytes # 0.7 10^3/uL (0.2-0.9); Monocytes % 6.1 %; Neutrophils # 9.29 10^3/uL (1.8-7.7); Neutrophils % 80.9 %; Nucleated Red Blood Cells % 0 %; Platelet Count 301 10^3/cmm (130-400); Red Blood Count 5.63 10^6/uL (4.1-5.3); Red Cell Distribution Width 14.7 % (12.1-15.1); White Blood Count 11.5 10^3/uL (4.0-10.0)
[2023-03-15] MEDS: abatacept 1,000 MG in sodium chloride 0.9% (100 ml) 100 ML 200 MG IV (09:55)
[2023-03-15 10:13] LABS: Alanine Aminotransferase 17 U/L (0-41); Alkaline Phosphatase 118 U/L (40-130); Aspartate Amino Transferase 13 U/L (0-40); Blood Urea Nitrogen 14 mg/dL (6-20); C Reactive Protein 4.2 mg/L (0.0-4.9); Calcium 9.1 mg/dL (8.5-10.5); Carbon Dioxide 25 mmol/L (22-29); Chloride 104 mmol/L (98-107); Globulin 2.6 g/dL (1.3-4.6); Glomerular Filtration Rate 98.9 mL/min (90-130); Glucose 141 mg/dL (65-115); Osmolality Calculated 293 mOsm/kg (285-295); Sodium 140 mmol/L (136-145); Total Bilirubin 0.3 mg/dL (0.15-1.2); Total Protein 6.6 g/dL (6.6-8.7)
[2023-03-15 10:31] LABS: Anion Gap 15.2 (5-19); Potassium 4.2 mmol/L (3.5-5.1)
== END 2023-03-19 23:59 | disposition home or self-care (01) ==
LOC: ONCMED 08:47
PROVIDERS: PCP Electrodiagnostic Medicine; Visit Provider Internal Medicine Rheumatology
DX: M05.79 Rheumatoid arthritis with rheumatoid factor of multiple sites without organ or systems involvement (principal); L40.0 Psoriasis vulgaris; Z79.52 Long term (current) use of systemic steroids; Z79.899 Other long term (current) drug therapy
CPT/HCPCS: 80053; 85025; 86140; 96365; 96375; J0129; J1200; J2930; J7050

== ENCOUNTER 2023-03-24 09:36 | Outpatient (CLI) | payer MEDICARE, OTHER, SELFPAY ==
--- NOTE | 2023-03-24 09:45 | USCV_ITS ---
SandyTai Age: 57 Gender: M : 1965 Exam Date: 03/24/2023 10:10 Ordering Phys: Tony Bess (ER USE) Technologist: Exam Location: [facility] Indication: chest pain BP: 125 / 70 HR: 69 Rhythm: Sinus Technical Quality: Adequate MEASUREMENTS (Male / Female) Normal Values 2D ECHO LV Diastolic Diameter PLAX 3.2 cm 4.2 - 5.9 / 3.9 - 5.3 cm LV Systolic Diameter PLAX 2.3 cm IVS Diastolic Thickness 1.1 cm 0.6 - 1.0 / 0.6 - 0.9 cm IVS Systolic Thickness 1.4 cm LVPW Diastolic Thickness 1.4 cm 0.6 - 1.0 / 0.6 - 0.9 cm LVPW Systolic Thickness 1.2 cm LVOT Diameter 2.0 cm LV Ejection Fraction 2D Teich 57.8 % LV Ejection Fraction MOD 2C 63.5 % LV Ejection Fraction 2C AL 64.7 % LA Diameter 4.0 cm IVC Diameter 1.7 cm M-MODE Aortic Annulus Diameter 3.6 cm LA Ao Ratio MM 1.3 MV E Point Septal Separation 0.4 cm DOPPLER AV Peak Velocity 156.0 cm/s LVOT Peak Velocity 129.0 cm/s AV Area Cont Eq vti 2.6 cm squared AV Area Cont Eq pk 2.5 cm squared MV Area PHT 5.1 cm squared Mitral E to A Ratio 1.3 MV E' Velocity 57.4 cm/s Mitral E to MV E' Ratio 7.6 Mitral E to LV E' Lateral Ratio 7.3 Mitral E to LV E' Septal Ratio 8.0 TR Peak Velocity 157.0 cm/s TR Peak Gradient 9.9 mmHg TV Peak E Velocity 78.0 cm/s Right Atrial Pressure 3.0 mmHg Pulmonary Artery Systolic Pressu 12.9 mmHg RV Acceleration Time 0.2 s FINDINGS Left Ventricle Normal left ventricular size, systolic function and wall thickness, with no regional wall motion abnormalities. Normal left ventricular wall thickness. Normal diastolic filling pattern. Left ventricular ejection fraction is estimated at 60 %. Right Ventricle The right ventricle is normal in size and function. Right Atrium The right atrium is normal in size. Left Atrium The left atrium is normal in size. Mitral Valve Structurally normal mitral valve. Trace mitral valve regurgitation. Aortic Valve Structurally normal aortic valve without significant sclerosis or stenosis. There is no aortic regurgitation. Tricuspid Valve Structurally normal tricuspid valve without significant stenosis or regurgitation. Pulmonary artery systolic pressure is normal. Pulmonic Valve Structurally normal pulmonic valve without significant stenosis. There is no pulmonic regurgitation. Pericardium Normal pericardium without effusion. Aorta Normal ascending aorta dimension. IVC The inferior vena cava appears normal. CONCLUSIONS Normal left ventricular size, systolic function and wall thickness, with no regional wall motion abnormalities. Normal left ventricular wall thickness. Normal diastolic filling pattern. Left ventricular ejection fraction is estimated at 60 %. Structurally normal mitral valve. Trace mitral valve regurgitation. There are no prior echocardiogram studies to compare. Dr. Delfino Dewitt MD (Electronically Signed) Final Date: 24 Mar 2023 14:34 S
== END 2023-03-24 09:37 | disposition home or self-care (01) ==
LOC: RAD 09:39
PROVIDERS: PCP Electrodiagnostic Medicine; Visit Provider Electrodiagnostic Medicine
DX: I35.0 Nonrheumatic aortic (valve) stenosis (principal)
CPT/HCPCS: 93306

== ENCOUNTER 2023-04-12 08:52 | Oncology outpatient (recurring) (ONCR) | payer MEDICARE, OTHER, SELFPAY ==
[2023-04-12 08:59] VITALS: BP 115/74; PULSE 76; RESP 18; TEMP 36.6; O2SAT 96
[2023-04-12] MEDS: acetaminophen 325 mg Tablet 650 MG PO (09:35)
[2023-04-12] MEDS: sodium chloride 0.9% 250 ML 50 ML IV (09:35)
[2023-04-12] MEDS: diphenhydrAMINE 50 mg/mL SDV 1mL 25 MG IVP (09:37)
[2023-04-12] MEDS: dexamethasone 10 mg/mL INJ 6 MG IVP (09:40)
[2023-04-12] MEDS: abatacept 1,000 MG in sodium chloride 0.9% (100 ml) 100 ML 200 MG IV (09:44)
[2023-04-12 10:34] VITALS: BP 113/62; PULSE 71; RESP 18; TEMP 36.4; O2SAT 97
== END 2023-04-19 23:59 | disposition home or self-care (01) ==
PROVIDERS: PCP Electrodiagnostic Medicine; Visit Provider Internal Medicine Rheumatology
DX: M05.79 Rheumatoid arthritis with rheumatoid factor of multiple sites without organ or systems involvement (principal)
CPT/HCPCS: 96365; 96375; 96413; J0129; J1100; J1200; J7050

== ENCOUNTER 2023-05-10 13:18 | Oncology outpatient (recurring) (ONCR) | payer MEDICARE, OTHER, SELFPAY ==
[2023-05-10] MEDS: diphenhydrAMINE 50 mg/mL SDV 1mL 25 MG IVP (14:06)
[2023-05-10] MEDS: acetaminophen 325 mg Tablet 650 MG PO (14:06)
[2023-05-10] MEDS: sodium chloride 0.9% 250 ML 75 ML IV (14:24)
[2023-05-10] MEDS: dexamethasone 10 mg/mL INJ 6 MG IVP (14:24)
[2023-05-10] MEDS: abatacept 1,000 MG in sodium chloride 0.9% (100 ml) 100 ML 200 MG IV (14:32)
[2023-05-10 17:19] VITALS: BP 130/82; PULSE 70; RESP 18; TEMP 36.7; O2SAT 97
== END 2023-05-19 23:59 | disposition home or self-care (01) ==
PROVIDERS: PCP Electrodiagnostic Medicine; Visit Provider Internal Medicine Rheumatology
DX: M05.79 Rheumatoid arthritis with rheumatoid factor of multiple sites without organ or systems involvement (principal); L40.0 Psoriasis vulgaris; Z79.52 Long term (current) use of systemic steroids; Z79.899 Other long term (current) drug therapy
CPT/HCPCS: 96365; 96375; J0129; J1100; J1200; J7050

== ENCOUNTER → 2023-06-01 13:06 | Outpatient (BNVA) | payer MEDICARE, OTHER, SELFPAY | PROVIDERS: PCP Electrodiagnostic Medicine; Visit Provider Internal Medicine Rheumatology | DX: M05.79 Rheumatoid arthritis with rheumatoid factor of multiple sites without organ or systems involvement (principal); L40.0 Psoriasis vulgaris; Z71.89 Other specified counseling; Z79.899 Other long term (current) drug therapy | CPT/HCPCS: 99214 ==

== ENCOUNTER 2023-06-07 13:00 | Oncology outpatient (recurring) (ONCR) | payer MEDICARE, OTHER, SELFPAY ==
[2023-05-29 10:48] LABS: Basophils # 0.1 10^3/uL (0.0-0.1); Basophils % 0.4 %; Eosinophils # 0.1 10^3/uL (0.0-0.8); Eosinophils % 0.4 %; Hematocrit 49.7 % (42.0-52.0); Hemoglobin 15.9 g/dL (11.7-16.6); Lymphocytes % 9.2 %; Mean Corpuscular Hemoglobin 29.7 pg (28.0-34.0); Mean Corpuscular Volume 92.9 fl (80-94); Mean Platelet Volume 8.6 fL (7.4-10.4); Monocytes # 0.7 10^3/uL (0.2-0.9); Monocytes % 6.1 %; Neutrophils # 9.39 10^3/uL (1.8-7.7); Neutrophils % 83.3 %; Nucleated Red Blood Cells % 0 %; Platelet Count 268 10^3/cmm (130-400); Red Blood Count 5.35 10^6/uL (4.1-5.3); Red Cell Distribution Width 14.8 % (12.1-15.1); White Blood Count 11.3 10^3/uL (4.0-10.0)
[2023-05-29 11:07] LABS: Alanine Aminotransferase 15 U/L (0-41); Albumin Level 3.9 g/dL (3.5-5.2); Alkaline Phosphatase 111 U/L (40-130); Anion Gap 11.2 (5-19); Aspartate Amino Transferase 11 U/L (0-40); Blood Urea Nitrogen 14 mg/dL (6-20); Calcium 8.5 mg/dL (8.5-10.5); Carbon Dioxide 27 mmol/L (22-29); Chloride 103 mmol/L (98-107); Globulin 2.4 g/dL (1.3-4.6); Glomerular Filtration Rate 86.4 mL/min (90-130); Glucose 99 mg/dL (65-115); Iron 36 ug/dL (59-158); Lactate Dehydrogenase 167 U/L (135-225); Osmolality Calculated 285 mOsm/kg (285-295); Percent Saturation 14.4 % (20-50); Potassium 4.2 mmol/L (3.5-5.1); Sodium 137 mmol/L (136-145); Total Bilirubin 0.2 mg/dL (0.15-1.2); Total Iron Binding Capacity 249 mcg/dl; Total Protein 6.3 g/dL (6.6-8.7); Unsaturated Iron Binding 213 ug/dL (112-347)
[2023-05-29 11:10] LABS: LAB Peripheral Smear Sent for Review
[2023-05-29 11:23] LABS: Vitamin B12 319 pg/mL (232-1245)
[2023-06-06 16:08] LABS: CALR Exon 9 Mutation NOT DETECTED (NOT DETECTED); CSF3R Exon 14/17 Mutation NOT DETECTED (NOT DETECTED); JAK2 Exon 12 Mutation NOT DETECTED (NOT DETECTED); JAK2 V617 Block Specimen ID NG; JAK2 V617 Clinical Indication NG; JAK2 V617 Mutation NOT DETECTED (NOT DETECTED); JAK2 V617 Specimen Source NG; MPL Exon 12 Mutation NOT DETECTED (NOT DETECTED)
[2023-06-07 13:10] VITALS: BP 118/65; PULSE 77; RESP 18; O2SAT 94
[2023-06-07] MEDS: sodium chloride 0.9% 250 ML 75 ML IV (13:32)
[2023-06-07] MEDS: diphenhydrAMINE 50 mg/mL SDV 1mL 25 MG IVP (13:33)
[2023-06-07] MEDS: acetaminophen 325 mg Tablet 650 MG PO (13:33)
[2023-06-07] MEDS: methylPREDNISolone sod succ 125 mg SDV IV (13:53)
[2023-06-07] MEDS: abatacept 1,000 MG in sodium chloride 0.9% (100 ml) 100 ML 200 MG IV (14:00)
[2023-06-07 15:00] VITALS: BP 119/63; PULSE 76; RESP 18; TEMP 36.3; O2SAT 97
== END 2023-06-19 23:59 | disposition home or self-care (01) ==
PROVIDERS: Internal Medicine Medical Oncology; PCP Electrodiagnostic Medicine; Visit Provider Internal Medicine Rheumatology
DX: M05.79 Rheumatoid arthritis with rheumatoid factor of multiple sites without organ or systems involvement (principal)
CPT/HCPCS: 36415; 80053; 81270; 81279; 81339; 81479; 82607; 83540; 83550; 83615; 85025; 88374; 96365; 96375; 99204; J0129; J1200; J2930; J7050

== ENCOUNTER 2023-07-05 12:48 | Oncology outpatient (recurring) (ONCR) | payer MEDICARE, OTHER, SELFPAY ==
[2023-07-05] MEDS: acetaminophen 325 mg Tablet 650 MG PO (13:58)
[2023-07-05] MEDS: diphenhydrAMINE 50 mg/mL SDV 1mL 25 MG IVP (14:02)
[2023-07-05] MEDS: sodium chloride 0.9% 250 ML 75 ML IV (14:03)
[2023-07-05] MEDS: methylPREDNISolone sod succ 125 mg SDV IVP (14:04)
[2023-07-05] MEDS: abatacept 1,000 MG in sodium chloride 0.9% (100 ml) 100 ML 200 MG IV (14:42)
[2023-07-05 15:35] VITALS: BP 108/60; PULSE 70; RESP 16; TEMP 36.7; O2SAT 96
== END 2023-07-20 23:59 | disposition home or self-care (01) ==
LOC: ONCMED 12:49
PROVIDERS: PCP Electrodiagnostic Medicine; Visit Provider Internal Medicine Rheumatology
DX: M05.79 Rheumatoid arthritis with rheumatoid factor of multiple sites without organ or systems involvement (principal)
CPT/HCPCS: 96375; 96413; J0129; J1200; J2930; J7050

== ENCOUNTER 2023-08-02 12:46 | Oncology outpatient (recurring) (ONCR) | payer MEDICARE, OTHER, SELFPAY ==
[2023-08-02 13:45] VITALS: BP 109/60; PULSE 71; RESP 16; TEMP 36.7; O2SAT 98
[2023-08-02] MEDS: sodium chloride 0.9% 250 ML 75 ML IV (14:01)
[2023-08-02] MEDS: acetaminophen 325 mg Tablet 650 MG PO (14:03)
[2023-08-02] MEDS: diphenhydrAMINE 50 mg/mL SDV 1mL 25 MG IVP (14:03)
[2023-08-02] MEDS: methylPREDNISolone sod succ 125 mg SDV IVP (14:04)
[2023-08-02] MEDS: abatacept 1,000 MG in sodium chloride 0.9% (100 ml) 100 ML 200 MG IV (14:38)
[2023-08-02 15:12] VITALS: BP 110/90; PULSE 63; RESP 16; TEMP 36.4; O2SAT 97
== END 2023-08-19 23:59 | disposition home or self-care (01) ==
LOC: ONCMED 12:46
PROVIDERS: PCP Electrodiagnostic Medicine; Visit Provider Internal Medicine Rheumatology
DX: M05.79 Rheumatoid arthritis with rheumatoid factor of multiple sites without organ or systems involvement (principal)
CPT/HCPCS: 96365; 96375; J0129; J1200; J2930; J7050

== ENCOUNTER 2023-08-30 12:47 | Oncology outpatient (recurring) (ONCR) | payer MEDICARE, OTHER, SELFPAY ==
[2023-08-30] MEDS: sodium chloride 0.9% 250 ML 75 ML IV (13:33)
[2023-08-30 13:36] LABS: Basophils # 0.1 10^3/uL (0.0-0.1); Basophils % 0.6 %; Eosinophils # 0.2 10^3/uL (0.0-0.8); Eosinophils % 2.4 %; Hematocrit 51.3 % (37-53); Lymphocytes # 1.3 10^3/uL (0.8-4.8); Lymphocytes % 14.1 %; Mean Corpuscular HGB Conc 32.9 g/dL (30-55); Mean Corpuscular Hemoglobin 29.6 pg (27-33); Mean Corpuscular Volume 89.8 fl (82-101); Mean Platelet Volume 8.5 fL (7.4-10.4); Monocytes # 0.6 10^3/uL (0.2-0.9); Monocytes % 6.6 %; Neutrophils # 6.85 10^3/uL (1.8-7.7); Neutrophils % 75.9 %; Nucleated Red Blood Cells % 0 %; Platelet Count 227 10^3/cmm (157-399); Red Blood Count 5.71 10^6/uL (3.85-5.65); Red Cell Distribution Width 13.9 % (12.1-15.1); White Blood Count 9.03 10^3/uL (3.29-11.43)
[2023-08-30] MEDS: diphenhydrAMINE 50 mg/mL SDV 1mL 25 MG IVP (13:36)
[2023-08-30] MEDS: acetaminophen 325 mg Tablet 650 MG PO (13:36)
[2023-08-30] MEDS: methylPREDNISolone sod succ 125 mg SDV IVP (13:40)
[2023-08-30 13:45] VITALS: BP 124/78; PULSE 74; RESP 18; TEMP 36.6; O2SAT 98
[2023-08-30] MEDS: abatacept 1,000 MG in sodium chloride 0.9% (100 ml) 100 ML 200 MG IV (13:47)
[2023-08-30 13:57] LABS: Alanine Aminotransferase 13 U/L (0-41); Albumin Level 3.7 g/dL (3.5-5.2); Alkaline Phosphatase 100 U/L (40-130); Anion Gap 13.8 (5-19); Aspartate Amino Transferase 16 U/L (0-40); Blood Urea Nitrogen 13 mg/dL (8-23); Calcium 8.4 mg/dL (8.5-10.5); Carbon Dioxide 25 mmol/L (22-29); Chloride 105 mmol/L (98-107); Globulin 2.4 g/dL (1.3-4.6); Glomerular Filtration Rate 86.1 mL/min (90-130); Glucose 123 mg/dL (65-115); Lactate Dehydrogenase 181 U/L (135-225); Osmolality Calculated 291 mOsm/kg (285-295); Potassium 3.8 mmol/L (3.5-5.1); Sodium 140 mmol/L (136-145); Total Bilirubin 0.2 mg/dL (0.15-1.2); Total Protein 6.1 g/dL (6.6-8.7)
[2023-08-30 14:35] VITALS: BP 124/78; PULSE 74; RESP 18; TEMP 36.4; O2SAT 98
== END 2023-09-19 23:59 | disposition home or self-care (01) ==
PROVIDERS: Internal Medicine Medical Oncology; PCP Electrodiagnostic Medicine; Visit Provider Internal Medicine Rheumatology
DX: M05.79 Rheumatoid arthritis with rheumatoid factor of multiple sites without organ or systems involvement (principal)
CPT/HCPCS: 80053; 83615; 85025; 86140; 96375; 96413; J0129; J1200; J2930; J7050

== ENCOUNTER → 2023-08-31 12:38 | Outpatient (BNVA) | payer MEDICARE, OTHER, SELFPAY | PROVIDERS: PCP Electrodiagnostic Medicine; Visit Provider Internal Medicine Rheumatology | DX: M05.79 Rheumatoid arthritis with rheumatoid factor of multiple sites without organ or systems involvement (principal); L40.0 Psoriasis vulgaris; Z71.89 Other specified counseling; Z79.899 Other long term (current) drug therapy | CPT/HCPCS: 99214 ==

== ENCOUNTER 2023-10-11 12:41 | Oncology outpatient (recurring) (ONCR) | payer MEDICARE, OTHER, SELFPAY ==
--- NOTE | 2023-10-11 13:43 | PC.NURSE ---
Patient scheduled for infusion of Abatacept today. Patient stated that he had knee surgery one week ago on 10/04/23. This nurse attempted to contact Dr. Gao regarding this and was informed that he is not in office this week. Patient stated that Dr. Gao had approved him to have infusion one week post op. This nurse discussed with manager action, Bridget Gan RN, and she found documentation from Dr. Gao confirming this. Patient verbalized understanding to proceed with infusion today.
[2023-10-11] MEDS: sodium chloride 0.9% 250 ML 75 ML IV (13:59)
[2023-10-11] MEDS: diphenhydrAMINE 50 mg/mL SDV 1mL 25 MG IVP (13:59)
[2023-10-11] MEDS: acetaminophen 325 mg Tablet 650 MG PO (13:59)
[2023-10-11] MEDS: methylPREDNISolone sod succ 125 mg SDV IVP (14:00)
[2023-10-11] MEDS: abatacept 1,000 MG in sodium chloride 0.9% (100 ml) 100 ML 200 MG IV (14:21)
[2023-10-11 15:05] VITALS: BP 125/72; PULSE 64; RESP 16; TEMP 36.7; O2SAT 99
== END 2023-10-19 23:59 | disposition home or self-care (01) ==
LOC: ONCMED 12:42
PROVIDERS: PCP Electrodiagnostic Medicine; Visit Provider Internal Medicine Rheumatology
DX: M05.79 Rheumatoid arthritis with rheumatoid factor of multiple sites without organ or systems involvement (principal)
CPT/HCPCS: 96365; 96375; J0129; J1200; J2930; J7050

== ENCOUNTER 2023-11-08 12:39 | Oncology outpatient (recurring) (ONCR) | payer MEDICARE, OTHER, SELFPAY ==
[2023-11-08] MEDS: sodium chloride 0.9% 250 ML 75 ML IV (13:25)
[2023-11-08] MEDS: methylPREDNISolone sod succ 125 mg SDV IVP (13:26)
[2023-11-08] MEDS: acetaminophen 325 mg Tablet 650 MG PO (13:26)
[2023-11-08] MEDS: diphenhydrAMINE 50 mg/mL SDV 1mL 25 MG IVP (13:30)
[2023-11-08] MEDS: abatacept 1,000 MG in sodium chloride 0.9% (100 ml) 100 ML 200 MG IV (13:59)
[2023-11-08 14:38] VITALS: BP 101/64; PULSE 72; O2SAT 95
== END 2023-11-19 23:59 | disposition home or self-care (01) ==
LOC: ONCMED 12:41
PROVIDERS: PCP Electrodiagnostic Medicine; Visit Provider Internal Medicine Rheumatology
DX: M05.89 Other rheumatoid arthritis with rheumatoid factor of multiple sites (principal)
CPT/HCPCS: 96365; 96375; J0129; J1200; J2930; J7050

== ENCOUNTER 2023-12-06 12:38 | Oncology outpatient (recurring) (ONCR) | payer MEDICARE, OTHER, SELFPAY ==
[2023-12-06 13:43] LABS: Basophils # 0.1 10^3/uL (0.0-0.1); Basophils % 0.6 %; Eosinophils % 0.5 %; Hematocrit 46.7 % (37-53); Lymphocytes % 11.6 %; Mean Corpuscular Hemoglobin 30.3 pg (27-33); Mean Corpuscular Volume 89.1 fl (82-101); Mean Platelet Volume 8.8 fL (7.4-10.4); Monocytes # 0.6 10^3/uL (0.2-0.9); Monocytes % 6.4 %; Neutrophils # 6.91 10^3/uL (1.8-7.7); Neutrophils % 80.4 %; Nucleated Red Blood Cells % 0 %; Platelet Count 254 10^3/cmm (157-399); Red Blood Count 5.24 10^6/uL (3.85-5.65); Red Cell Distribution Width 13.3 % (12.1-15.1); White Blood Count 8.59 10^3/uL (3.29-11.43)
[2023-12-06 13:56] LABS: Erythrocyte Sedimentation Rate 9 mm/hr (0-10)
[2023-12-06] MEDS: sodium chloride 0.9% (100 ml) 100 ML 75 ML (14:00)
[2023-12-06] MEDS: diphenhydrAMINE 50 mg/mL SDV 1mL 25 MG IVP (14:01)
[2023-12-06] MEDS: methylPREDNISolone sod succ 125 mg SDV IVP (14:04)
[2023-12-06] MEDS: acetaminophen 325 mg Tablet 650 MG PO (14:06)
[2023-12-06 14:10] LABS: Alanine Aminotransferase 11 U/L (0-41); Alkaline Phosphatase 107 U/L (40-130); Aspartate Amino Transferase 13 U/L (0-40); Globulin 2.4 g/dL (1.3-4.6); Glomerular Filtration Rate 86.1 mL/min (90-130); Total Bilirubin 0.4 mg/dL (0.15-1.2); Total Protein 6.4 g/dL (6.6-8.7)
[2023-12-06] MEDS: abatacept 1,000 MG in sodium chloride 0.9% (100 ml) 100 ML 200 MG IV (14:30)
[2023-12-06 15:36] VITALS: BP 99/61; PULSE 65; O2SAT 97
== END 2023-12-20 23:59 | disposition home or self-care (01) ==
PROVIDERS: PCP Electrodiagnostic Medicine; Visit Provider Internal Medicine Rheumatology
DX: M05.89 Other rheumatoid arthritis with rheumatoid factor of multiple sites (principal)
CPT/HCPCS: 80076; 82565; 85025; 85651; 96365; 96375; J0129; J1200; J2930

== ENCOUNTER 2024-01-03 12:33 | Oncology outpatient (recurring) (ONCR) | payer MEDICARE, OTHER, SELFPAY ==
[2024-01-03] MEDS: acetaminophen 325 mg Tablet 650 MG PO (12:58)
[2024-01-03 13:00] VITALS: BP 114/73; PULSE 66; RESP 16; TEMP 36.5; O2SAT 96
[2024-01-03] MEDS: diphenhydrAMINE 50 mg/mL SDV 1mL 25 MG IVP (13:03)
[2024-01-03] MEDS: sodium chloride 0.9% 250 ML 75 ML IV (13:03)
[2024-01-03] MEDS: methylPREDNISolone sod succ 125 mg/2 mL INJ IVP (13:05)
[2024-01-03] MEDS: abatacept 1,000 MG in sodium chloride 0.9% (100 ml) 100 ML 200 MG IV (13:44)
[2024-01-03 14:25] VITALS: BP 109/68; PULSE 69; RESP 17; O2SAT 96
== END 2024-01-18 23:59 | disposition home or self-care (01) ==
PROVIDERS: PCP Electrodiagnostic Medicine; Visit Provider Internal Medicine Rheumatology
DX: M05.89 Other rheumatoid arthritis with rheumatoid factor of multiple sites (principal)
CPT/HCPCS: 96365; 96375; A4222; J0129; J1200; J2930; J7050

== ENCOUNTER → 2024-01-11 12:24 | Outpatient (BNVA) | payer MEDICARE, OTHER, SELFPAY | PROVIDERS: PCP Electrodiagnostic Medicine; Visit Provider Internal Medicine Rheumatology | DX: M05.79 Rheumatoid arthritis with rheumatoid factor of multiple sites without organ or systems involvement (principal); L40.0 Psoriasis vulgaris; Z71.89 Other specified counseling; Z79.899 Other long term (current) drug therapy | CPT/HCPCS: 99214 ==

== ENCOUNTER 2024-02-01 12:41 | Oncology outpatient (recurring) (ONCR) | payer MEDICARE, OTHER, SELFPAY ==
[2024-02-01 13:24] VITALS: BP 134/70; PULSE 59; RESP 16; TEMP 36.6; O2SAT 97
[2024-02-01] MEDS: sodium chloride 0.9% 250 ML 75 ML IV (13:33)
[2024-02-01] MEDS: methylPREDNISolone sod succ 40 mg/mL INJ IVP (13:34)
[2024-02-01] MEDS: acetaminophen 325 mg Tablet 650 MG PO (13:34)
[2024-02-01] MEDS: diphenhydrAMINE 50 mg/mL SDV 1mL 25 MG IVP (13:38)
[2024-02-01] MEDS: abatacept 1,000 MG in sodium chloride 0.9% (100 ml) 100 ML 200 MG IV (13:57)
[2024-02-01 14:35] VITALS: BP 136/74; PULSE 65; TEMP 36.3; O2SAT 96
== END 2024-02-18 23:59 | disposition home or self-care (01) ==
PROVIDERS: PCP Electrodiagnostic Medicine; Visit Provider Internal Medicine Rheumatology
DX: M05.89 Other rheumatoid arthritis with rheumatoid factor of multiple sites (principal)
CPT/HCPCS: 96365; 96375; A4222; J0129; J1200; J2920; J7050

== ENCOUNTER 2024-02-29 14:18 | Oncology outpatient (recurring) (ONCR) | payer MEDICARE, OTHER, SELFPAY ==
[2024-02-29 14:28] VITALS: BP 157/75; PULSE 72; RESP 18; TEMP 36.7; O2SAT 96
[2024-02-29] MEDS: acetaminophen 325 mg Tablet 650 MG PO (14:40)
[2024-02-29] MEDS: sodium chloride 0.9% 250 ML 75 ML IV (14:40)
[2024-02-29] MEDS: diphenhydrAMINE 50 mg/mL SDV 1mL 25 MG IVP (14:40)
[2024-02-29] MEDS: methylPREDNISolone sod succ 40 mg/mL INJ IVP (14:43)
[2024-02-29 14:44] LABS: Basophils # 0.1 10^3/uL (0.0-0.1); Basophils % 0.8 %; Eosinophils # 0.2 10^3/uL (0.0-0.8); Eosinophils % 1.8 %; Hematocrit 46.8 % (37-53); Lymphocytes # 1.1 10^3/uL (0.8-4.8); Lymphocytes % 12.7 %; Mean Corpuscular HGB Conc 33.3 g/dL (30-55); Mean Corpuscular Hemoglobin 29.9 pg (27-33); Mean Corpuscular Volume 89.8 fl (82-101); Mean Platelet Volume 8.7 fL (7.4-10.4); Monocytes # 0.6 10^3/uL (0.2-0.9); Monocytes % 6.6 %; Neutrophils # 6.81 10^3/uL (1.8-7.7); Neutrophils % 77.6 %; Nucleated Red Blood Cells % 0 %; Platelet Count 237 10^3/cmm (157-399); Red Blood Count 5.21 10^6/uL (3.85-5.65); Red Cell Distribution Width 12.6 % (12.1-15.1); White Blood Count 8.77 10^3/uL (3.29-11.43)
[2024-02-29 15:00] LABS: Alanine Aminotransferase 12 U/L (0-41); Albumin Level 3.7 g/dL (3.5-5.2); Alkaline Phosphatase 102 U/L (40-130); Aspartate Amino Transferase 13 U/L (0-40); Globulin 2.3 g/dL (1.3-4.6); Glomerular Filtration Rate 86.1 mL/min (90-130); Total Bilirubin 0.2 mg/dL (0.15-1.2)
[2024-02-29] MEDS: abatacept 1,000 MG in sodium chloride 0.9% (100 ml) 100 ML 200 MG IV (15:06)
[2024-02-29 15:45] VITALS: BP 127/72; PULSE 78; RESP 18; TEMP 36.4; O2SAT 96
== END 2024-03-19 23:59 | disposition home or self-care (01) ==
PROVIDERS: PCP Electrodiagnostic Medicine; Visit Provider Internal Medicine Rheumatology
DX: M05.79 Rheumatoid arthritis with rheumatoid factor of multiple sites without organ or systems involvement (principal)
CPT/HCPCS: 80076; 82565; 85025; 86140; 96365; 96375; A4222; J0129; J1200; J2919; J7050

== ENCOUNTER 2024-03-28 12:31 | Oncology outpatient (recurring) (ONCR) | payer MEDICARE, OTHER, SELFPAY ==
[2024-03-28 13:38] LABS: Basophils # 0.1 10^3/uL (0.0-0.1); Basophils % 0.6 %; Eosinophils # 0.1 10^3/uL (0.0-0.8); Eosinophils % 1.4 %; Hematocrit 49.6 % (37-53); Lymphocytes # 1.3 10^3/uL (0.8-4.8); Lymphocytes % 13.9 %; Mean Corpuscular HGB Conc 33.3 g/dL (30-55); Mean Corpuscular Hemoglobin 30.2 pg (27-33); Mean Corpuscular Volume 90.7 fl (82-101); Mean Platelet Volume 8.3 fL (7.4-10.4); Monocytes # 0.5 10^3/uL (0.2-0.9); Neutrophils # 6.98 10^3/uL (1.8-7.7); Neutrophils % 77.7 %; Nucleated Red Blood Cells % 0 %; Platelet Count 227 10^3/cmm (157-399); Red Blood Count 5.47 10^6/uL (3.85-5.65); Red Cell Distribution Width 12.6 % (12.1-15.1); White Blood Count 8.99 10^3/uL (3.29-11.43)
[2024-03-28] MEDS: acetaminophen 325 mg Tablet 650 MG PO (13:46)
[2024-03-28] MEDS: diphenhydrAMINE 50 mg/mL SDV 1mL 25 MG IVP (13:51)
[2024-03-28] MEDS: sodium chloride 0.9% 250 ML 75 ML IV (13:51)
[2024-03-28 13:57] LABS: Alanine Aminotransferase 12 U/L (0-41); Albumin Level 3.8 g/dL (3.5-5.2); Alkaline Phosphatase 110 U/L (40-130); Aspartate Amino Transferase 12 U/L (0-40); Creatinine Clr Calc Pharmacy 88.2222; Globulin 2.6 g/dL (1.3-4.6); Glomerular Filtration Rate 76.2 mL/min (90-130); Total Bilirubin 0.3 mg/dL (0.15-1.2); Total Protein 6.4 g/dL (6.6-8.7)
[2024-03-28] MEDS: methylPREDNISolone sod succ 40 mg/mL INJ IVP (14:01)
[2024-03-28 14:04] VITALS: BP 111/72; PULSE 71; RESP 17; TEMP 36.4; O2SAT 94
[2024-03-28] MEDS: abatacept 1,000 MG in sodium chloride 0.9% (100 ml) 100 ML 200 MG IV (14:18)
[2024-03-28 14:55] VITALS: BP 114/76; PULSE 71; RESP 16; TEMP 36.6; O2SAT 98
== END 2024-04-19 23:59 | disposition home or self-care (01) ==
LOC: ONCMED 12:32
PROVIDERS: PCP Electrodiagnostic Medicine; Visit Provider Internal Medicine Rheumatology
DX: M05.79 Rheumatoid arthritis with rheumatoid factor of multiple sites without organ or systems involvement (principal)
CPT/HCPCS: 80076; 82565; 85025; 86140; 96365; 96375; A4222; J0129; J1200; J2919; J7050

== ENCOUNTER 2024-04-25 12:46 | Oncology outpatient (recurring) (ONCR) | payer MEDICARE, OTHER, SELFPAY ==
[2024-04-25] MEDS: acetaminophen 325 mg Tablet 650 MG PO (14:38)
[2024-04-25] MEDS: sodium chloride 0.9% 250 ML 75 ML IV (14:40)
[2024-04-25] MEDS: diphenhydrAMINE 50 mg/mL SDV 1mL 25 MG IVP (14:44)
[2024-04-25] MEDS: methylPREDNISolone sod succ 40 mg/mL INJ IVP (14:50)
[2024-04-25 14:54] VITALS: BP 124/79; PULSE 58; RESP 16; TEMP 35.9; O2SAT 96
[2024-04-25] MEDS: abatacept 1,000 MG in sodium chloride 0.9% (100 ml) 100 ML 200 MG IV (15:15)
[2024-04-25 16:10] VITALS: BP 101/61; PULSE 80; RESP 16; TEMP 36.7; O2SAT 98
== END 2024-05-19 23:59 | disposition home or self-care (01) ==
PROVIDERS: PCP Electrodiagnostic Medicine; Visit Provider Internal Medicine Rheumatology
DX: M05.79 Rheumatoid arthritis with rheumatoid factor of multiple sites without organ or systems involvement (principal)
CPT/HCPCS: 96365; 96375; A4222; J0129; J1200; J2919; J7050

== ENCOUNTER → 2024-05-27 11:06 | Outpatient (BNVA) | payer MEDICARE, OTHER, SELFPAY | PROVIDERS: PCP Electrodiagnostic Medicine; Visit Provider Internal Medicine Rheumatology | DX: M05.79 Rheumatoid arthritis with rheumatoid factor of multiple sites without organ or systems involvement (principal); L40.0 Psoriasis vulgaris; Z79.899 Other long term (current) drug therapy; Z71.85 Encounter for immunization safety counseling; Z87.891 Personal history of nicotine dependence | CPT/HCPCS: 99214 ==

== ENCOUNTER 2024-05-28 13:31 | Oncology outpatient (recurring) (ONCR) | payer MEDICARE, OTHER, SELFPAY ==
[2024-05-28 13:39] VITALS: BP 132/54; PULSE 88; RESP 17; TEMP 36.4; O2SAT 96
[2024-05-28] MEDS: sodium chloride 0.9% 250 ML 75 ML IV (14:01)
[2024-05-28] MEDS: acetaminophen 325 mg Tablet 650 MG PO (14:04)
[2024-05-28] MEDS: diphenhydrAMINE 50 mg/mL SDV 1mL 25 MG IVP (14:05)
[2024-05-28] MEDS: methylPREDNISolone sod succ 40 mg/mL INJ IVP (14:13)
[2024-05-28] MEDS: abatacept 1,000 MG in sodium chloride 0.9% (100 ml) 100 ML 200 MG IV (14:47)
[2024-05-28 15:23] LABS: Basophils # 0.1 10^3/uL (0.0-0.1); Basophils % 0.8 %; Eosinophils # 0.2 10^3/uL (0.0-0.8); Eosinophils % 1.7 %; Hematocrit 47.9 % (37-53); Lymphocytes # 1.2 10^3/uL (0.8-4.8); Lymphocytes % 12.9 %; Mean Corpuscular HGB Conc 33.8 g/dL (30-55); Mean Corpuscular Hemoglobin 29.9 pg (27-33); Mean Corpuscular Volume 88.4 fl (82-101); Mean Platelet Volume 8.7 fL (7.4-10.4); Monocytes # 0.5 10^3/uL (0.2-0.9); Monocytes % 5.7 %; Neutrophils # 7.33 10^3/uL (1.8-7.7); Neutrophils % 78.6 %; Nucleated Red Blood Cells % 0 %; Platelet Count 243 10^3/cmm (157-399); Red Blood Count 5.42 10^6/uL (3.85-5.65); Red Cell Distribution Width 12.4 % (12.1-15.1); White Blood Count 9.32 10^3/uL (3.29-11.43)
[2024-05-28 15:24] LABS: Erythrocyte Sedimentation Rate 5 mm/hr (0-10)
[2024-05-28 15:37] LABS: Alanine Aminotransferase 13 U/L (0-41); Alkaline Phosphatase 114 U/L (40-130); Aspartate Amino Transferase 14 U/L (0-40); Creatinine Clr Calc Pharmacy 97.8706; Globulin 2.4 g/dL (1.3-4.6); Glomerular Filtration Rate 86.1 mL/min (90-130); Total Bilirubin 0.3 mg/dL (0.15-1.2); Total Protein 6.4 g/dL (6.6-8.7)
[2024-05-28 15:45] VITALS: BP 103/66; PULSE 66; RESP 17; TEMP 36.3; O2SAT 98
[2024-05-28 16:06] LABS: Hepatitis B Core AB, Total Non-Reactive (Nonreactive); Hepatitis B Surface Antigen Non-Reactive (Nonreactive); Hepatitis C Virus Antibody Non-Reactive (Nonreactive)
[2024-05-30 12:45] LABS: Quantiferon Mitogen 9.82 IU/mL; Quantiferon Nil 0.03 IU/mL; Quantiferon TB Gold NEGATIVE (NEGATIVE)
== END 2024-06-19 23:59 | disposition home or self-care (01) ==
PROVIDERS: PCP Electrodiagnostic Medicine; Visit Provider Internal Medicine Rheumatology
DX: M05.79 Rheumatoid arthritis with rheumatoid factor of multiple sites without organ or systems involvement (principal); Z79.899 Other long term (current) drug therapy; Z11.59 Encounter for screening for other viral diseases
CPT/HCPCS: 80076; 82565; 85025; 85651; 86140; 86480; 86704; 86803; 87340; 96365; 96375; J0129; J1200; J2919; J7050

== ENCOUNTER 2024-06-25 13:34 | Oncology outpatient (recurring) (ONCR) | payer MEDICARE, OTHER, SELFPAY ==
[2024-06-25 13:50] VITALS: BP 147/71; PULSE 72; RESP 16; O2SAT 98
[2024-06-25] MEDS: sodium chloride 0.9% 250 ML 75 ML IV (14:16)
[2024-06-25] MEDS: acetaminophen 325 mg Tablet 650 MG PO (14:16)
[2024-06-25] MEDS: diphenhydrAMINE 50 mg/mL SDV 1mL 25 MG IVP (14:16)
[2024-06-25] MEDS: methylPREDNISolone sod succ 40 mg/mL INJ IVP (14:17)
[2024-06-25] MEDS: abatacept 1,000 MG in sodium chloride 0.9% (100 ml) 100 ML 200 MG IV (14:40)
[2024-06-25 15:15] VITALS: BP 133/70; PULSE 67; RESP 16; O2SAT 95
== END 2024-07-20 23:59 | disposition home or self-care (01) ==
PROVIDERS: PCP Electrodiagnostic Medicine; Visit Provider Internal Medicine Rheumatology
DX: M05.79 Rheumatoid arthritis with rheumatoid factor of multiple sites without organ or systems involvement (principal); Z79.899 Other long term (current) drug therapy; Z11.59 Encounter for screening for other viral diseases
CPT/HCPCS: 96365; 96375; A4222; J0129; J1200; J2919; J7050

== ENCOUNTER 2024-07-23 13:40 | Oncology outpatient (recurring) (ONCR) | payer MEDICARE, OTHER, SELFPAY ==
[2024-07-23 14:12] VITALS: BP 110/56; PULSE 65; RESP 16; TEMP 36.3; O2SAT 96
[2024-07-23] MEDS: acetaminophen 325 mg Tablet 650 MG PO (14:23)
[2024-07-23] MEDS: sodium chloride 0.9% 250 ML 75 ML IV (14:24)
[2024-07-23] MEDS: diphenhydrAMINE 50 mg/mL SDV 1mL 25 MG IVP (14:29)
[2024-07-23] MEDS: methylPREDNISolone sod succ 40 mg/mL INJ IVP (14:34)
[2024-07-23] MEDS: abatacept 1,000 MG in sodium chloride 0.9% (100 ml) 100 ML 200 MG IV (15:16)
[2024-07-23 16:05] VITALS: BP 112/74; PULSE 84; RESP 16; TEMP 36.6; O2SAT 98
== END 2024-08-19 23:59 | disposition home or self-care (01) ==
PROVIDERS: PCP Electrodiagnostic Medicine; Visit Provider Internal Medicine Rheumatology
DX: M05.79 Rheumatoid arthritis with rheumatoid factor of multiple sites without organ or systems involvement; Z79.899 Other long term (current) drug therapy
CPT/HCPCS: 96365; A4222; J0129; J1200; J2919; J7050

== ENCOUNTER 2024-09-17 13:00 | Oncology outpatient (recurring) (ONCR) | payer MEDICARE, OTHER, SELFPAY ==
[2024-08-20 13:12] LABS: Basophils # 0.1 10^3/uL (0.0-0.1); Basophils % 0.6 %; Eosinophils # 0.1 10^3/uL (0.0-0.8); Eosinophils % 0.9 %; Hematocrit 48.4 % (37-53); Lymphocytes # 0.9 10^3/uL (0.8-4.8); Lymphocytes % 10.2 %; Mean Corpuscular HGB Conc 32.9 g/dL (30-55); Mean Corpuscular Hemoglobin 29.6 pg (27-33); Mean Platelet Volume 8.5 fL (7.4-10.4); Monocytes # 0.6 10^3/uL (0.2-0.9); Monocytes % 6.1 %; Neutrophils # 7.34 10^3/uL (1.8-7.7); Neutrophils % 81.8 %; Nucleated Red Blood Cells % 0 %; Platelet Count 219 10^3/cmm (157-399); Red Blood Count 5.38 10^6/uL (3.85-5.65); Red Cell Distribution Width 13.2 % (12.1-15.1); White Blood Count 8.98 10^3/uL (3.29-11.43)
[2024-08-20 13:31] LABS: Alanine Aminotransferase 15 U/L (0-41); Albumin Level 3.8 g/dL (3.5-5.2); Alkaline Phosphatase 109 U/L (40-130); Aspartate Amino Transferase 13 U/L (0-40); Creatinine Clr Calc Pharmacy 109.1484; Globulin 2.4 g/dL (1.3-4.6); Glomerular Filtration Rate 98.3 mL/min (90-130); Total Bilirubin 0.4 mg/dL (0.15-1.2); Total Protein 6.2 g/dL (6.6-8.7)
[2024-08-20] MEDS: acetaminophen 325 mg Tablet 650 MG PO (13:42)
[2024-08-20] MEDS: methylPREDNISolone sod succ 40 mg/mL INJ IVP (13:43)
[2024-08-20] MEDS: sodium chloride 0.9% 250 ML 75 ML IV (13:43)
[2024-08-20] MEDS: diphenhydrAMINE 50 mg/mL SDV 1mL 25 MG IVP (13:43)
[2024-08-20] MEDS: abatacept 1,000 MG in sodium chloride 0.9% (100 ml) 100 ML 200 MG IV (14:16)
[2024-08-20 14:49] VITALS: BP 125/64; PULSE 71; TEMP 36.4; O2SAT 98
== END 2024-09-19 23:59 | disposition home or self-care (01) ==
PROVIDERS: PCP Electrodiagnostic Medicine; Visit Provider Internal Medicine Rheumatology
DX: Z53.9 Procedure and treatment not carried out, unspecified reason
CPT/HCPCS: 80076; 82565; 85025; 86140; 96365; 96375; A4222; J0129; J1200; J2919; J7050

== ENCOUNTER → 2024-10-07 10:00 | Outpatient (BNVA) | payer MEDICARE, OTHER, SELFPAY | PROVIDERS: PCP Electrodiagnostic Medicine; Visit Provider Internal Medicine Rheumatology | DX: M05.79 Rheumatoid arthritis with rheumatoid factor of multiple sites without organ or systems involvement (principal); L40.0 Psoriasis vulgaris; Z71.89 Other specified counseling; Z79.899 Other long term (current) drug therapy | CPT/HCPCS: 99214 ==

== ENCOUNTER 2024-10-24 12:29 | Oncology outpatient (recurring) (ONCR) | payer MEDICARE, OTHER, SELFPAY ==
[2024-10-24 13:17] VITALS: BP 125/76; PULSE 67; TEMP 36.6; O2SAT 98
[2024-10-24] MEDS: sodium chloride 0.9% 250 ML 75 ML IV (13:48)
[2024-10-24] MEDS: acetaminophen 325 mg Tablet 650 MG PO (13:49)
[2024-10-24] MEDS: diphenhydrAMINE 50 mg/mL SDV 1mL 25 MG IVP (13:50)
[2024-10-24] MEDS: methylPREDNISolone sod succ 40 mg SDV IVP (13:53)
[2024-10-24] MEDS: abatacept 1,000 MG in sodium chloride 0.9% (100 ml) 100 ML 200 MG IV (14:11)
[2024-10-24 14:49] VITALS: BP 127/80; PULSE 63; RESP 16; TEMP 37; O2SAT 99
== END 2024-11-19 23:59 | disposition home or self-care (01) ==
PROVIDERS: PCP Electrodiagnostic Medicine; Visit Provider Internal Medicine Rheumatology
DX: Z79.899 Other long term (current) drug therapy; M05.89 Other rheumatoid arthritis with rheumatoid factor of multiple sites
CPT/HCPCS: 96365; 96375; A4222; J0129; J1200; J2919; J7050

== ENCOUNTER 2024-11-28 12:25 | Oncology outpatient (recurring) (ONCR) | payer MEDICARE, OTHER, SELFPAY ==
[2024-11-28 13:49] VITALS: BP 117/55; PULSE 68; RESP 18; TEMP 36.7; O2SAT 98
[2024-11-28] MEDS: acetaminophen 325 mg Tablet 650 MG PO (13:59)
[2024-11-28] MEDS: diphenhydrAMINE 50 mg/mL SDV 1mL 25 MG IVP (13:59)
[2024-11-28] MEDS: sodium chloride 0.9% 250 ML 75 ML IV (14:00)
[2024-11-28] MEDS: methylPREDNISolone sod succ 40 mg/mL INJ IVP (14:01)
[2024-11-28 14:30] LABS: Basophils # 0.1 10^3/uL (0.0-0.1); Basophils % 0.6 %; Eosinophils % 0.5 %; Hematocrit 42.6 % (37-53); Lymphocytes # 0.8 10^3/uL (0.8-4.8); Lymphocytes % 9.5 %; Mean Corpuscular HGB Conc 32.4 g/dL (30-55); Mean Corpuscular Hemoglobin 29.3 pg (27-33); Mean Corpuscular Volume 90.4 fl (82-101); Mean Platelet Volume 8.4 fL (7.4-10.4); Monocytes # 0.6 10^3/uL (0.2-0.9); Monocytes % 6.6 %; Neutrophils # 7.26 10^3/uL (1.8-7.7); Nucleated Red Blood Cells % 0 %; Platelet Count 402 10^3/cmm (157-399); Red Blood Count 4.71 10^6/uL (3.85-5.65); Red Cell Distribution Width 12.8 % (12.1-15.1); White Blood Count 8.84 10^3/uL (3.29-11.43)
[2024-11-28] MEDS: abatacept 1,000 MG in sodium chloride 0.9% (100 ml) 100 ML 200 MG IV (14:38)
[2024-11-28 14:48] LABS: Alanine Aminotransferase 17 U/L (0-41); Albumin Level 4.1 g/dL (3.5-5.2); Alkaline Phosphatase 161 U/L (40-130); Aspartate Amino Transferase 17 U/L (0-40); Creatinine Clr Calc Pharmacy 108.4017; Globulin 2.7 g/dL (1.3-4.6); Glomerular Filtration Rate 98.3 mL/min (90-130); Total Bilirubin 0.2 mg/dL (0.15-1.2); Total Protein 6.8 g/dL (6.6-8.7)
[2024-11-28 15:21] VITALS: BP 112/76; PULSE 84; RESP 16; TEMP 36.6; O2SAT 96
== END 2024-12-20 23:59 | disposition home or self-care (01) ==
PROVIDERS: PCP Electrodiagnostic Medicine; Visit Provider Internal Medicine Rheumatology
DX: M05.89 Other rheumatoid arthritis with rheumatoid factor of multiple sites (principal); Z79.899 Other long term (current) drug therapy
CPT/HCPCS: 80076; 82565; 85025; 86140; 96365; 96375; A4222; J0129; J1200; J2919; J7050

== ENCOUNTER 2024-12-26 12:23 | Oncology outpatient (recurring) (ONCR) | payer MEDICARE, OTHER, SELFPAY ==
[2024-12-26] MEDS: sodium chloride 0.9% 250 ML 75 ML IV (13:05)
[2024-12-26] MEDS: acetaminophen 325 mg Tablet 650 MG PO (13:05)
[2024-12-26] MEDS: diphenhydrAMINE 50 mg/mL SDV 1mL 25 MG IVP (13:07)
[2024-12-26] MEDS: methylPREDNISolone sod succ 40 mg/mL INJ IVP (13:12)
[2024-12-26] MEDS: abatacept 1,000 MG in sodium chloride 0.9% (100 ml) 100 ML 200 MG IV (13:41)
[2024-12-26 14:22] VITALS: BP 120/77; PULSE 61; TEMP 36.3; O2SAT 94
== END 2025-01-17 23:59 | disposition home or self-care (01) ==
PROVIDERS: PCP Electrodiagnostic Medicine; Visit Provider Internal Medicine Rheumatology
DX: M05.89 Other rheumatoid arthritis with rheumatoid factor of multiple sites (principal); Z79.899 Other long term (current) drug therapy
CPT/HCPCS: 96365; 96375; J0129; J1200; J2919; J7050

== ENCOUNTER 2025-01-27 13:20 | Oncology outpatient (recurring) (ONCR) | payer MEDICARE, OTHER, SELFPAY ==
[2025-01-27 13:00] VITALS: BP 107/57; PULSE 66; RESP 16; TEMP 36.3; O2SAT 95
[2025-01-27 13:44] VITALS: BP 109/67; PULSE 70; RESP 18; TEMP 36.3; O2SAT 97
[2025-01-27] MEDS: sodium chloride 0.9% 250 ML 75 ML IV (13:56)
[2025-01-27] MEDS: acetaminophen 325 mg Tablet 650 MG PO (13:57)
[2025-01-27] MEDS: diphenhydrAMINE 50 mg/mL SDV 1mL 25 MG IVP (13:57)
[2025-01-27] MEDS: methylPREDNISolone sod succ 40 mg/mL INJ IVP (14:00)
[2025-01-27] MEDS: abatacept 1,000 MG in sodium chloride 0.9% (100 ml) 100 ML 200 MG IV (14:16)
== END 2025-02-17 23:59 | disposition home or self-care (01) ==
PROVIDERS: PCP Electrodiagnostic Medicine; Visit Provider Internal Medicine Rheumatology
DX: M05.89 Other rheumatoid arthritis with rheumatoid factor of multiple sites (principal); Z79.899 Other long term (current) drug therapy
CPT/HCPCS: 96365; 96375; A4222; J0129; J1200; J2919; J7050; J9999

== ENCOUNTER 2025-02-24 12:41 | Oncology outpatient (recurring) (ONCR) | payer MEDICARE, OTHER, SELFPAY ==
[2025-02-24 13:12] LABS: Basophils % 0.6 %; Eosinophils # 0.1 10^3/uL (0.0-0.8); Eosinophils % 1.9 %; Hematocrit 43.7 % (37-53); Lymphocytes # 0.9 10^3/uL (0.8-4.8); Lymphocytes % 12.8 %; Mean Corpuscular HGB Conc 32.7 g/dL (30-55); Mean Corpuscular Hemoglobin 28.7 pg (27-33); Mean Corpuscular Volume 87.8 fl (82-101); Mean Platelet Volume 8.8 fL (7.4-10.4); Monocytes # 0.5 10^3/uL (0.2-0.9); Monocytes % 6.9 %; Neutrophils % 77.4 %; Nucleated Red Blood Cells % 0 %; Platelet Count 229 10^3/cmm (157-399); Red Blood Count 4.98 10^6/uL (3.85-5.65); Red Cell Distribution Width 12.9 % (12.1-15.1); White Blood Count 7.24 10^3/uL (3.29-11.43)
[2025-02-24 13:20] VITALS: BP 163/76; PULSE 57; RESP 17; TEMP 36.7; O2SAT 97
[2025-02-24] MEDS: sodium chloride 0.9% 250 ML 75 ML IV (13:25)
[2025-02-24] MEDS: acetaminophen 325 mg Tablet 650 MG PO (13:25)
[2025-02-24] MEDS: diphenhydrAMINE 50 mg/mL SDV 1mL 25 MG IVP (13:27)
[2025-02-24 13:34] LABS: Alanine Aminotransferase 12 U/L (0-41); Albumin Level 3.8 g/dL (3.5-5.2); Alkaline Phosphatase 125 U/L (40-130); Aspartate Amino Transferase 14 U/L (0-40); Creatinine Clr Calc Pharmacy 111.3878; Globulin 2.3 g/dL (1.3-4.6); Glomerular Filtration Rate 98.3 mL/min (90-130); Total Bilirubin 0.2 mg/dL (0.15-1.2); Total Protein 6.1 g/dL (6.6-8.7)
[2025-02-24] MEDS: methylPREDNISolone sod succ 40 mg/mL INJ IVP (13:36)
[2025-02-24] MEDS: abatacept 1,000 MG in sodium chloride 0.9% (100 ml) 100 ML 200 MG IV (14:13)
== END 2025-03-19 23:59 | disposition home or self-care (01) ==
PROVIDERS: PCP Electrodiagnostic Medicine; Visit Provider Internal Medicine Rheumatology
DX: M05.89 Other rheumatoid arthritis with rheumatoid factor of multiple sites (principal); Z79.899 Other long term (current) drug therapy
CPT/HCPCS: 80076; 82565; 85025; 86140; 96365; 96375; A4222; J0129; J1200; J2919; J7050; J9999

== ENCOUNTER 2025-03-24 12:33 | Oncology outpatient (recurring) (ONCR) | payer MEDICARE, OTHER, SELFPAY ==
[2025-03-24] MEDS: sodium chloride 0.9% 250 ML 75 ML IV (12:57)
[2025-03-24] MEDS: acetaminophen 325 mg Tablet 650 MG PO (12:58)
[2025-03-24] MEDS: diphenhydrAMINE 50 mg/mL SDV 1mL 25 MG IVP (13:00)
[2025-03-24] MEDS: methylPREDNISolone sod succ 40 mg/mL INJ IVP (13:03)
[2025-03-24] MEDS: abatacept 1,000 MG in sodium chloride 0.9% (100 ml) 100 ML 200 MG IV (13:36)
[2025-03-24 14:37] VITALS: BP 107/63; PULSE 77; RESP 16; TEMP 36.6; O2SAT 95
== END 2025-04-19 23:59 | disposition home or self-care (01) ==
PROVIDERS: PCP Electrodiagnostic Medicine; Visit Provider Internal Medicine Rheumatology
DX: M05.89 Other rheumatoid arthritis with rheumatoid factor of multiple sites (principal); Z79.899 Other long term (current) drug therapy
CPT/HCPCS: 96365; 96375; J0129; J1200; J2919; J7050; J9999

== ENCOUNTER → 2025-03-31 10:19 | Outpatient (BNVA) | payer MEDICARE, OTHER, SELFPAY | PROVIDERS: PCP Electrodiagnostic Medicine; Visit Provider Internal Medicine Rheumatology | DX: M05.79 Rheumatoid arthritis with rheumatoid factor of multiple sites without organ or systems involvement (principal); L40.0 Psoriasis vulgaris; Z71.89 Other specified counseling; Z79.899 Other long term (current) drug therapy; L98.9 Disorder of the skin and subcutaneous tissue, unspecified; L40.9 Psoriasis, unspecified | CPT/HCPCS: 99214 ==

== ENCOUNTER 2025-04-22 12:28 | Oncology outpatient (recurring) (ONCR) | payer MEDICARE, OTHER, SELFPAY ==
[2025-04-22 12:51] VITALS: BP 112/52; PULSE 72; TEMP 36.9; O2SAT 96
[2025-04-22] MEDS: diphenhydrAMINE 50 mg/mL SDV 1mL 25 MG IVP (13:05)
[2025-04-22] MEDS: sodium chloride 0.9% 250 ML 75 ML IV (13:05)
[2025-04-22] MEDS: acetaminophen 325 mg Tablet 650 MG PO (13:06)
[2025-04-22] MEDS: methylPREDNISolone sod succ 40 mg/mL INJ IVP (13:11)
[2025-04-22] MEDS: abatacept 1,000 MG in sodium chloride 0.9% (100 ml) 100 ML 200 MG IV (13:54)
[2025-04-22 14:38] VITALS: BP 120/75; PULSE 69; O2SAT 96
== END 2025-05-19 23:59 | disposition home or self-care (01) ==
PROVIDERS: PCP Electrodiagnostic Medicine; Visit Provider Internal Medicine Rheumatology
DX: M05.89 Other rheumatoid arthritis with rheumatoid factor of multiple sites (principal); Z79.899 Other long term (current) drug therapy
CPT/HCPCS: 96365; 96375; A4222; J0129; J1200; J2919; J7050; J9999

== ENCOUNTER 2025-06-18 13:00 | Oncology outpatient (recurring) (ONCR) | payer MEDICARE, OTHER, SELFPAY ==
[2025-05-21] MEDS: diphenhydrAMINE 50 mg/mL SDV 1mL 25 MG IVP (12:59)
[2025-05-21 13:02] LABS: Hematocrit 45.1 % (37-53); Hemoglobin 14.50 g/dL (11.27-16.99); Mean Corpuscular HGB Conc 32.2 g/dL (30-55); Mean Corpuscular Hemoglobin 28.3 pg (27-33); Mean Corpuscular Volume 88.1 fl (82-101); Nucleated Red Blood Cells % 0 %; Platelet Count 254 10^3/cmm (157-399); Red Blood Count 5.12 10^6/uL (3.85-5.65); White Blood Count 6.84 10^3/uL (3.29-11.43)
[2025-05-21] MEDS: methylPREDNISolone sod succ 40 mg/mL INJ IVP (13:04)
[2025-05-21] MEDS: abatacept 1,000 MG in sodium chloride 0.9% (100 ml) 100 ML 200 MG IV (13:20)
[2025-05-21 13:30] LABS: Alanine Aminotransferase 12 U/L (0-41); Albumin Level 3.8 g/dL (3.5-5.2); Alkaline Phosphatase 130 U/L (40-130); Aspartate Amino Transferase 16 U/L (0-40); Creatinine Clr Calc Pharmacy 97.7947; Globulin 2.7 g/dL (1.3-4.6); Total Protein 6.5 g/dL (6.6-8.7)
[2025-05-21 14:01] VITALS: BP 110/68; PULSE 68; RESP 16; TEMP 36.9; O2SAT 97
[2025-06-18 12:46] VITALS: BP 108/63; PULSE 79; TEMP 36.4
[2025-06-18] MEDS: diphenhydrAMINE 50 mg/mL SDV 1mL 25 MG IVP (13:41)
[2025-06-18] MEDS: methylPREDNISolone sod succ 40 mg/mL INJ IVP (13:48)
[2025-06-18] MEDS: abatacept 1,000 MG in sodium chloride 0.9% (100 ml) 100 ML 200 MG IV (14:32)
[2025-06-18 15:07] VITALS: BP 102/62; PULSE 68; TEMP 36.2; O2SAT 98
[2025-06-18 15:45] VITALS: BP 120/78; PULSE 78; RESP 18; TEMP 36.6; O2SAT 98
== END 2025-06-18 23:59 | disposition home or self-care (01) ==
PROVIDERS: PCP Electrodiagnostic Medicine; Visit Provider Internal Medicine Rheumatology
DX: Z53.9 Procedure and treatment not carried out, unspecified reason; M05.89 Other rheumatoid arthritis with rheumatoid factor of multiple sites; Z79.899 Other long term (current) drug therapy
CPT/HCPCS: 80076; 82565; 85025; 86140; 96375; 96413; A4222; J0129; J1200; J2919; J7050; J9999

== ENCOUNTER 2025-07-16 12:27 | Oncology outpatient (recurring) (ONCR) | payer MEDICARE, OTHER, SELFPAY ==
[2025-07-16] MEDS: methylPREDNISolone sod succ 40 mg/mL INJ IVP (13:29)
[2025-07-16] MEDS: abatacept 1,000 MG in sodium chloride 0.9% (100 ml) 100 ML 200 MG IV (13:52)
[2025-07-16 14:41] VITALS: BP 119/65; PULSE 68; RESP 18; TEMP 36.7; O2SAT 96
== END 2025-07-20 23:59 | disposition home or self-care (01) ==
PROVIDERS: PCP Electrodiagnostic Medicine; Visit Provider Internal Medicine Rheumatology
DX: M05.89 Other rheumatoid arthritis with rheumatoid factor of multiple sites (principal); Z79.899 Other long term (current) drug therapy
CPT/HCPCS: 96375; 96413; A4222; J0129; J1200; J2919; J7050; J9999

== ENCOUNTER → 2025-08-06 10:35 | Outpatient (BNVA) | payer MEDICARE, OTHER, SELFPAY | PROVIDERS: PCP Electrodiagnostic Medicine; Visit Provider Dermatology | DX: L57.8 Other skin changes due to chronic exposure to nonionizing radiation (principal); L82.1 Other seborrheic keratosis | CPT/HCPCS: 11102; 17004; 69100; 99203 ==

== ENCOUNTER → 2025-08-12 09:57 | Outpatient (BNVA) | payer MEDICARE, OTHER, SELFPAY | PROVIDERS: PCP Electrodiagnostic Medicine; Visit Provider Internal Medicine Rheumatology | DX: M05.79 Rheumatoid arthritis with rheumatoid factor of multiple sites without organ or systems involvement (principal); L40.0 Psoriasis vulgaris; Z79.52 Long term (current) use of systemic steroids; Z71.85 Encounter for immunization safety counseling; Z79.899 Other long term (current) drug therapy; Z96.641 Presence of right artificial hip joint | CPT/HCPCS: 99214 ==

== ENCOUNTER 2025-08-13 12:42 | Oncology outpatient (recurring) (ONCR) | payer MEDICARE, OTHER, SELFPAY ==
[2025-08-13] MEDS: methylPREDNISolone sod succ 40 mg/mL INJ IVP (13:16)
[2025-08-13] MEDS: abatacept 1,000 MG in sodium chloride 0.9% (100 ml) 100 ML 200 MG IV (13:42)
[2025-08-13 14:23] VITALS: BP 106/64; PULSE 94; RESP 18; TEMP 36.4; O2SAT 98
== END 2025-08-19 23:59 | disposition home or self-care (01) ==
LOC: ONCMED 12:43
PROVIDERS: PCP Electrodiagnostic Medicine; Visit Provider Internal Medicine Rheumatology
DX: M05.89 Other rheumatoid arthritis with rheumatoid factor of multiple sites (principal); Z79.899 Other long term (current) drug therapy
CPT/HCPCS: 96365; A4222; J0129; J2919; J7050; J9999

== ENCOUNTER → 2025-08-25 12:48 | Outpatient (BNVA) | payer MEDICARE, OTHER, SELFPAY | PROVIDERS: PCP Electrodiagnostic Medicine; Visit Provider Dermatology | DX: C44.91 Basal cell carcinoma of skin, unspecified (principal); C44.219 Basal cell carcinoma of skin of left ear and external auricular canal | CPT/HCPCS: 12053; 17311; 99213 ==

== ENCOUNTER → 2025-09-04 13:36 | Outpatient (BNVA) | payer MEDICARE, OTHER, SELFPAY | PROVIDERS: PCP Electrodiagnostic Medicine; Visit Provider Dermatology | DX: D04.61 Carcinoma in situ of skin of right upper limb, including shoulder (principal) | CPT/HCPCS: 11602; 12032 ==

== ENCOUNTER 2025-09-10 12:26 | Oncology outpatient (recurring) (ONCR) | payer MEDICARE, OTHER, SELFPAY ==
[2025-09-10] MEDS: methylPREDNISolone sod succ 40 mg/mL INJ IVP (13:39)
[2025-09-10 13:40] LABS: Hematocrit 44.7 % (37-53); Hemoglobin 14.70 g/dL (11.27-16.99); Mean Corpuscular HGB Conc 32.9 g/dL (30-55); Mean Corpuscular Hemoglobin 28.1 pg (27-33); Mean Corpuscular Volume 85.5 fl (82-101); Nucleated Red Blood Cells % 0 %; Platelet Count 231 10^3/cmm (157-399); Red Blood Count 5.23 10^6/uL (3.85-5.65); White Blood Count 6.35 10^3/uL (3.29-11.43)
[2025-09-10 13:43] VITALS: BP 129/72; PULSE 70; RESP 16; TEMP 36.4; O2SAT 97
[2025-09-10 13:58] LABS: Alanine Aminotransferase 14 U/L (0-41); Albumin Level 4.0 g/dL (3.5-5.2); Alkaline Phosphatase 122 U/L (40-130); Aspartate Amino Transferase 18 U/L (0-40); Creatinine Clr Calc Pharmacy 96.2294; Globulin 2.5 g/dL (1.3-4.6); Total Protein 6.5 g/dL (6.6-8.7)
[2025-09-10] MEDS: abatacept 1,000 MG in sodium chloride 0.9% (100 ml) 100 ML 200 MG IV (14:10)
[2025-09-10 15:00] VITALS: BP 102/59; PULSE 65; RESP 17; TEMP 36.6; O2SAT 97
== END 2025-09-19 23:59 | disposition home or self-care (01) ==
PROVIDERS: PCP Electrodiagnostic Medicine; Visit Provider Internal Medicine Rheumatology
DX: M05.79 Rheumatoid arthritis with rheumatoid factor of multiple sites without organ or systems involvement (principal); Z79.899 Other long term (current) drug therapy
CPT/HCPCS: 80076; 82565; 85025; 85651; 96365; A4222; J0129; J2919; J7050; J9999

== ENCOUNTER → 2025-09-18 14:21 | Outpatient (BNVA) | payer MEDICARE, OTHER, SELFPAY | PROVIDERS: PCP Electrodiagnostic Medicine; Visit Provider Dermatology | DX: C44.91 Basal cell carcinoma of skin, unspecified (principal) | CPT/HCPCS: 99213 ==

== ENCOUNTER 2025-10-04 16:30 | Emergency (ER) | payer MEDICARE, OTHER, SELFPAY ==
[2025-10-04 16:31] VITALS: BP 127/70; PULSE 65; RESP 17; TEMP 36.7; O2SAT 97; BMI 25.1
--- OUTSIDE RECORDS SUMMARY | 2025-10-04 16:35 | XMS_ITS | Encounter Summary ---
Author Organization [facility] Address [address] [place] [address] Care Team Providers Care Band Shover Name Role Phone Non-Staff, Physician Primary Care Provider Unava ilable Encounter Details Date Type Department Care Team (Latest Contact Info) Description 11/02/2001 Outpatient Historical [facility] Family Medicine [place] 104 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
--- OUTSIDE RECORDS SUMMARY | 2025-10-04 16:36 | XMS_ITS ---
Author Organization Unknown Vital Signs BpStanding BpSitting BpSupine Date Temperature HeartRate Weight Hei ght Spo2 Respiration Bmi HeadCircumference FieldCount TimeRecorded NeckCircumferen ce WaistCircumference Pulse Custom 142/78 01/23 00:00 :00 98.4 185,4.0 0 6,0 99 18 25.1 00:00 84 124/68 02/13 00:00 :00 188,4.0 0 6,0 97 18 25.5 00:00 86
--- OUTSIDE RECORDS SUMMARY | 2025-10-04 16:36 | XMS_ITS | Encounter Summary ---
Author Organization [facility] Address [address] [place] [address] Care Team Providers Care Networking Technology Instructor Name Role Phone Non-Staff, Physician Primary Care Provider Unava ilable Encounter Details Date Type Department Care Team (Latest Contact Info) Description 07/24/2007 Outpatient Historical [facility] Family Medicine [place] 104 [facility] 60 [place] [phone] Constance Forbes NP NO ADDRESS ON FILE Acute Tonsillitis (Primary Dx); Pain in Joint, Site Unspecified Social History Tobacco Use Types Packs/Day Years Used Date Smoking Tobacco: Never Assessed Sex and Gender Information Value Date Recorded Sex Assigned at Not on file 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
--- OUTSIDE RECORDS SUMMARY | 2025-10-04 16:36 | XMS_ITS | Encounter Summary ---
Author Organization [facility] Address [address] [facility] Attn: [place] [address] Care Team Providers Care Time Clock Mechanic Name Role Phone Non-Staff, Physician Primary Care Provider Unava ilable Encounter Details Date Type Department Care Team (Late st Contact Info) Description 07/24/2007 Outpatient Historical Constance Forbes NP NO ADDRESS ON FILE Social History Tobacco Use Types Packs/Day Years Used Date Smoking Tobacco: Never Assessed Sex and Gender Information Value Date Recorded Sex Assigned at Not on file 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
--- OUTSIDE RECORDS SUMMARY | 2025-10-04 16:36 | XMS_ITS | Encounter Summary ---
Author Organization [facility] Address [address] [place] [address] Care Team Providers Care Commercial Makeup Artist Name Role Phone Non-Staff, Physician Primary Care Provider Unava ilable Encounter Details Date Type Department Care Team (Latest Contact Info) Description 10/15/2001 Outpatient Historical [facility] Family Medicine [place] 104 [facility] 60 [place] [phone] Chucho Aldana MD [address] [address] COUGH (Primary Dx); TRACHEA/BRONCHUS DIS NEC Social History Tobacco Use Types Packs/Day Years Used Date Smoking Tobacco: Never Assessed Sex and Gender Information Value Date Recorded Sex Assigned at Not on file 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
--- OUTSIDE RECORDS SUMMARY | 2025-10-04 16:36 | XMS_ITS | Encounter Summary ---
Author Organization [facility] Address [address] [place] [address] Care Team Providers Care Slime Plant Operator Name Role Phone Non-Staff, Physician Primary Care Provider Unava ilable Encounter Details Date Type Department Care Team (Latest Contact Info) Description 04/12/2007 Outpatient Historical [facility] Family Medicine [place] 104 [facility] 60 [place] [address] Tali Lantigua MD NO ADDRESS ON FILE Pain in Limb (Primary Dx) Social History Tobacco Use Types Packs/Day Years Used Date Smoking Tobacco: Never Assessed Sex and Gender Information Value Date Recorded Sex Assigned at Not on file 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
--- OUTSIDE RECORDS SUMMARY | 2025-10-04 16:36 | XMS_ITS | Encounter Summary ---
Author Organization [facility] Address [address] [place] [address] Care Team Providers Care Bioinformatician Name Role Phone Non-Staff, Physician Primary Care Provider Unava ilable Encounter Details Date Type Department Care Team (Latest Contact Info) Description 09/24/2001 Outpatient Historical [facility] Family Medicine [place] 104 [facility] 60 [place] [phone] Chucho Aldana MD [address] [address] SHORTNESS OF BREATH (Primary Dx); TACHYCARDIA NOS Social History Tobacco Use Types Packs/Day Years Used Date Smoking Tobacco: Never Assessed Sex and Gender Information Value Date Recorded Sex Assigned at Not on file 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
--- OUTSIDE RECORDS SUMMARY | 2025-10-04 16:37 | XMS_ITS | Encounter Summary ---
Author Organization [facility] Address [address] [facility] Attn: [place] [address] Care Team Providers Care Clamshell Engineer Name Role Phone Non-Staff, Physician Primary Care Provider Unava ilable Encounter Details Date Type Department Care Team (Late st Contact Info) Description 08/29/2001 [place] [address] [facility] [address] [place] [id number] Social History Tobacco Use Types Packs/Day Years Used Date Smoking Tobacco: Never Assessed Sex and Gender Information Value Date Recorded Sex Assigned at Not on file 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
--- OUTSIDE RECORDS SUMMARY | 2025-10-04 16:37 | XMS_ITS | Encounter Summary ---
Author Organization [facility] Address [address] [place] [address] Care Team Providers Care Tamale Machine Feeder Name Role Phone Non-Staff, Physician Primary Care Provider Unava ilable Encounter Details Date Type Department Care Team (Latest Contact Info) Description 08/24/2001 Outpatient Historical [facility] Family Medicine [place] 104 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
--- OUTSIDE RECORDS SUMMARY | 2025-10-04 16:37 | XMS_ITS | Encounter Summary ---
Author Organization [facility] Address [address] [place] [address] Care Team Providers Care Process Improvement Consultant Name Role Phone Non-Staff, Physician Primary Care Provider Unava ilable Encounter Details Date Type Department Care Team (Latest Contact Info) Description 09/04/2001 Outpatient Historical [facility] General Surgery [place] [address] [address] [place] [phone] [place] [address] [facility] [address] [place] [address] Other postprocedural status(V45.89) (Primary Dx) Social History Tobacco Use Types Packs/Day Years Used Date Smoking Tobacco: Never Assessed Sex and Gender Information Value Date Recorded Sex Assigned at Not on file 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
--- OUTSIDE RECORDS SUMMARY | 2025-10-04 16:37 | XMS_ITS | Encounter Summary ---
Author Organization [facility] Address [address] [place] [address] Care Team Providers Care Jack Machine Operator Name Role Phone Non-Staff, Physician Primary Care Provider Unava ilable Encounter Details Date Type Department Care Team (Latest Contact Info) Description 09/20/[address] 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
--- OUTSIDE RECORDS SUMMARY | 2025-10-04 16:38 | XMS_ITS | Encounter Summary ---
Author Organization [facility] Address [address] [place] [address] Care Team Providers Care Car Conditioner Name Role Phone Non-Staff, Physician Primary Care Provider Unava ilable Encounter Details Date Type Department Care Team (Latest Contact Info) Description 12/19/2005 Outpatient Historical [facility] [address] [address] Inga Garcia, [employer] [address] [place] [address] ACUTE SINUSITIS NOS (Primary Dx) Social History Tobacco Use Types Packs/Day Years Used Date Smoking Tobacco: Never Assessed Sex and Gender Information Value Date Recorded Sex Assigned at Not on file 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
--- OUTSIDE RECORDS SUMMARY | 2025-10-04 16:38 | XMS_ITS | Encounter Summary ---
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 Gender Identity Not on file Sexual Orientation Not on file documented as of this encounter Plan of Treatment Not on file documented as of this encounter Procedures Procedure Name Priority Date/Time Associated Diagnosis Comments ANTISTREPTOLYSIN SCREEN, QUAL Routine 07/24/2007 10:49 AM CDT documented in this encounter Results * ANTISTREPTOLYSIN (07/24/2007 10:49 AM CDT) ANTI-STREPTOLYS IN <25 <=200 IU/mL INTERFACE SYSTEM 07/24/2007 10:4 9 AM CDT us Misael Ornelas DO CHEMISTRY ORDERABLES COM Edited INTERFACE SYSTEM Refer to clinic/hospital department documented in this encounter Visit Diagnoses Not on filedocumented in this encounter Care Teams Thermo Processor Relationship Specialty Start Date End Date Non-Staff, Physician NO ADDRESS ON FILE PCP - General 04/15/08 documented as of this encounter
--- OUTSIDE RECORDS SUMMARY | 2025-10-04 16:38 | XMS_ITS | Encounter Summary ---
Author Organization [facility] Address [address] [place] [address] Care Team Providers Care Cyanide Pot Hardener Name Role Phone Non-Staff, Physician Primary Care Provider Unava ilable Encounter Details Date Type Department Care Team (Latest Contact Info) Description 08/03/2007 Outpatient Historical [facility] [address] [address] Inga Garcia, WOOD SETTER [address] [place] [address] Pain in Joint, Site Unspecified (Primary Dx) Social History Tobacco Use Types Packs/Day Years Used Date Smoking Tobacco: Never Assessed Sex and Gender Information Value Date Recorded Sex Assigned at Not on file 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
--- OUTSIDE RECORDS SUMMARY | 2025-10-04 16:38 | XMS_ITS | Encounter Summary ---
Author Organization [facility] Address [address] [place] [address] Care Team Providers Care Concrete Finishing Machine Operator Name Role Phone Non-Staff, Physician Primary Care Provider Unava ilable Encounter Details Date Type Department Care Team (Latest Contact Info) Description 01/08/2001 Outpatient Historical [facility] Family Medicine [place] [address] [facility] [address] [place] [id number] Chucho Aldana MD [address] [address] Cough (Primary Dx) Social History Tobacco Use Types Packs/Day Years Used Date Smoking Tobacco: Never Assessed Sex and Gender Information Value Date Recorded Sex Assigned at Not on file 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
--- OUTSIDE RECORDS SUMMARY | 2025-10-04 16:38 | XMS_ITS | Encounter Summary ---
Author Organization [facility] Address [address] [place] [address] Care Team Providers Care Manager Program Management Name Role Phone Non-Staff, Physician Primary Care Provider Unava ilable Encounter Details Date Type Department Care Team (Late st Contact Info) Description 03/14/2007 Outpatient Historical [facility] Imaging Services[facility] [address] [place] [id number] Social History Tobacco Use Types Packs/Day Years Used Date Smoking Tobacco: Never Assessed Sex and Gender Information Value Date Recorded Sex Assigned at Not on file 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
--- OUTSIDE RECORDS SUMMARY | 2025-10-04 16:39 | XMS_ITS | Encounter Summary ---
Author Organization [facility] Address [address] [place] [address] Care Team Providers Care Inside Trucker Name Role Phone Non-Staff, Physician Primary Care Provider Unava ilable Encounter Details Date Type Department Care Team (Latest Contact Info) Description 07/18/2003 Outpatient Historical [facility] Medicine [place] [address] [phone] Misael Ornelas DO NO ADDRESS ON FILE HEARING LOSS NOS (Primary Dx); OTHER PSORIASIS; ACUTE SINUSITIS NOS Social History Tobacco Use Types Packs/Day Years Used Date Smoking Tobacco: Never Assessed Sex and Gender Information Value Date Recorded Sex Assigned at Not on file 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
--- OUTSIDE RECORDS SUMMARY | 2025-10-04 16:39 | XMS_ITS | Encounter Summary ---
Author Organization [facility] Address [address] [place] [address] Care Team Providers Care Scraper Meat Name Role Phone Non-Staff, Physician Primary Care Provider Unava ilable Encounter Details Date Type Department Care Team (Latest Contact Info) Description 03/13/2007 Outpatient Historical [facility] Family Medicine [place] [address] [facility] [place] [address] [place] [phone] Inga Garcia, HOUSING AND RESIDENCE LIFE DIRECTOR [address] [place] [address] Pain in Limb (Primary Dx) Social History Tobacco Use Types Packs/Day Years Used Date Smoking Tobacco: Never Assessed Sex and Gender Information Value Date Recorded Sex Assigned at Not on file Legal Sex Male 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
--- OUTSIDE RECORDS SUMMARY | 2025-10-04 16:39 | XMS_ITS | Encounter Summary ---
Author Organization [facility] Address [address] [place] [address] Care Team Providers Care Molecular Genetic Pathologist Name Role Phone Non-Staff, Physician Primary Care Provider Unava ilable Encounter Details Date Type Department Care Team (Latest Contact Info) Description 02/09/2007 Outpatient Historical 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
--- OUTSIDE RECORDS SUMMARY | 2025-10-04 16:40 | XMS_ITS | Encounter Summary ---
Author Organization [facility] Address [address] [place] [address] Care Team Providers Care Acute Care Nursing Assistant Name Role Phone Non-Staff, Physician Primary Care Provider Unava ilable Encounter Details Date Type Department Care Team (Latest Contact Info) Description 01/02/2004 Outpatient Historical [facility] Family Medicine [place] 104 [facility] [address] [place] [phone] Tali Lantigua MD NO ADDRESS ON FILE ACUTE BRONCHITIS (Primary Dx); ASTHMA UNSPECIFIED Social History Tobacco Use Types Packs/Day Years Used Date Smoking Tobacco: Never Assessed Sex and Gender Information Value Date Recorded Sex Assigned at Not on file 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
--- OUTSIDE RECORDS SUMMARY | 2025-10-04 16:40 | XMS_ITS | Patient Health Record ---
Author Organization [facility] Address [address] [place] [address] Care Team Providers Care Nail Galvanizer Name Role Phone Tony Bess DO Primary Care Provider Unavail able Larisa May Unavailable [phone] Jese Lopez Unavailable [phone] Sebas Jaime Unavailable [phone] Yaritza Reyes Unavailable [phone] Allergies Allergen (clinical drug ingredient) Drug/Non Drug Allergy documented on EMR Reaction Allergy Type Onset Date Status methotrexate Methotrexate Sodium Unknown Drug Allergy 01/2010 Active Neosporin Unknown Drug Allergy 03/22/2010 Active Neosporin AF rash Drug Allergy Acti ve silver sulfadiazine Silvadene Unknown Drug Allergy 010 Active Substance with 1-sepldcnbkgpquorla-6- receptor antagonist mechanism of action (substance) 5HT3 Receptor Antagonists Unknown Drug Allergy 03/22/2010 Inactive Adhesive rash Allergy Active tape Unknown Allergy 03/22/2010 Active Results Component Value Reference Range Flag Notes Urine Drug Screen (cup read) - 07895 Reviewed date:07/03/2025 11:44:47 AM Interpretation: Performing Lab: Notes/Report: OPI + Urine Confirmation Panel (in strument) - [id number] Reviewed date:07/08/2025 01:26:41 PM Interpretation: Performing Lab: Notes/Report: 6-Acetylmorphine 0 <6 ng/mL N This neftali t was developed and its performance characteristics determined by [facility]. It has not been cleared or approved by the U.S. Food and Drug Administration. 7-Aminoclonazepam 0 <60 ng/mL N This te st was developed and its performance characteristics determined by [facility]. It has not been cleared or approved by the U.S. Food and Drug Administration. Alprazolam 0 <60 ng/mL N This test was developed and its performance characteristics determined by [facility]. It has not been cleared or approved by the U.S. Food and Drug Administration. Amphetamine 0 <75 ng/mL N This test was developed and its performance characteristics determined by [facility]. It has not been cleared or approved by the U.S. Food and Drug Administration. aOH-Alprazolam 0 <60 ng/mL N This test was developed and its performance characteristics determined by [facility]. It has not been cleared or approved by the U.S. Food and Drug Administration. Buprenorphine 0.0 <7.5 ng/mL N This test w as developed and its performance characteristics determined by [facility]. It has not been cleared or approved by the U.S. Food and Drug Administration. Norbuprenorphine 0.0 <37.5 ng/mL N This te st was developed and its performance characteristics determined by [facility]. It has not been cleared or approved by the U.S. Food and Drug Administration. Carisoprodol 0 <75 ng/mL N This test wa s developed and its performance characteristics determined by [facility]. It has not been cleared or approved by the U.S. Food and Drug Administration. Codeine 0 <75 ng/mL N This test was developed and its performance characteristics determined by [facility]. It has not been cleared or approved by the U.S. Food and Drug Administration. EDDP 0 <75 ng/mL N This test was developed and its performance characteristics determined by [facility]. It has not been cleared or approved by the U.S. Food and Drug Administration. Fentanyl 0 <6 ng/mL N This test was developed and its performance characteristics determined by [facility]. It has not been cleared or approved by the U.S. Food and Drug Administration. Hydrocodone 1577 <75 ng/mL H This test was developed and its performance characteristics determined by [facility]. It has not been cleared or approved by the U.S. Food and Drug Administration. Hydromorphone 297 <75 ng/mL H This test w as developed and its performance characteristics determined by [facility]. It has not been cleared or approved by the U.S. Food and Drug Administration. Lorazepam 0 <60 ng/mL N This test was developed and its performance characteristics determined by [facility]. It has not been cleared or approved by the U.S. Food and Drug Administration. MDMA 0 <75 ng/mL N This test was developed and its performance characteristics determined by [facility]. It has not been cleared or approved by the U.S. Food and Drug Administration. Meperidine 0.0 <37.5 ng/mL N This test was developed and its performance characteristics determined by [facility]. It has not been cleared or approved by the U.S. Food and Drug Administration. Meprobamate 0 <75 ng/mL N This test was developed and its performance characteristics determined by [facility]. It has not been cleared or approved by the U.S. Food and Drug Administration. Methamphetamine 0 <75 ng/mL N This test was developed and its performance characteristics determined by [facility]. It has not been cleared or approved by the U.S. Food and Drug Administration. Methadone 0 <75 ng/mL N This test was developed and its performance characteristics determined by [facility]. It has not been cleared or approved by the U.S. Food and Drug Administration. Morphine 0 <75 ng/mL N This test was developed and its performance characteristics determined by [facility]. It has not been cleared or approved by the U.S. Food and Drug Administration. Nordiazepam 0 <60 ng/mL N This test was developed and its performance characteristics determined by [facility]. It has not been cleared or approved by the U.S. Food and Drug Administration. Norfentanyl 0 <6 ng/mL N This test was developed and its performance characteristics determined by [facility]. It has not been cleared or approved by the U.S. Food and Drug Administration. Normeperidine 0.0 <37.5 ng/mL N This test was developed and its performance characteristics determined by [facility]. It has not been cleared or approved by the U.S. Food and Drug Administration. O-desmethyltramadol 0 <75 ng/mL N This test was developed and its performance characteristics determined by [facility]. It has not been cleared or approved by the U.S. Food and Drug Administration. Oxazepam 0 <60 ng/mL N This test was developed and its performance characteristics determined by [facility]. It has not been cleared or approved by the U.S. Food and Drug Administration. Oxycodone 0.0 <37.5 ng/mL N This test was developed and its performance characteristics determined by [facility]. It has not been cleared or approved by the U.S. Food and Drug Administration. Oxymorphone 0 <75 ng/mL N This test was developed and its performance characteristics determined by [facility]. It has not been cleared or approved by the U.S. Food and Drug Administration. Phencyclidine 0.0 <7.5 ng/mL N This test w as developed and its performance characteristics determined by [facility]. It has not been cleared or approved by the U.S. Food and Drug Administration. Tapentadol 0.0 <37.5 ng/mL N This test was developed and its performance characteristics determined by [facility]. It has not been cleared or approved by the U.S. Food and Drug Administration. Temazepam 0 <60 ng/mL N This test was developed and its performance characteristics determined by [facility]. It has not been cleared or approved by the U.S. Food and Drug Administration. Tramadol 0 <75 ng/mL N This test was developed and its performance characteristics determined by [facility]. It has not been cleared or approved by the U.S. Food and Drug Administration. Norhydrocodone 1415 <75 ng/mL H This test was developed and its performance characteristics determined by [facility]. It has not been cleared or approved by the U.S. Food and Drug Administration. Noroxycodone 0 <38 ng/mL N This test wa s developed and its performance characteristics determined by [facility]. It has not been cleared or approved by the U.S. Food and Drug Administration. Pregabalin 0 <225 ng/mL N This test was developed and its performance characteristics determined by [facility]. It has not been cleared or approved by the U.S. Food and Drug Administration. Gabapentin 0 <225 ng/mL N This test was developed and its performance characteristics determined by [facility]. It has not been cleared or approved by the U.S. Food and Drug Administration. Benzoylecgonine 0.0 <37.5 ng/mL N This neftali t was developed and its performance characteristics determined by [facility]. It has not been cleared or approved by the U.S. Food and Drug Administration. 4-Hydroxy Xylazine 0 <25 ng/mL N This t est was developed and its performance characteristics determined by [facility]. It has not been cleared or approved by the U.S. Food and Drug Administration. 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 Diagnosis Description: Encounter for other preprocedural examination Diagnosis Description: vp packaging (current) use of opiate analgesic Color UA Yellow NA Clarity UA Clear NA Specific gravity UA 1.015 1.005-1.030 Urine pH 6.0 5.0-8.0 NA Urine Glucose Negative NA Urine Bilirubin Negative NA Urine Ketone Negative NA Urine Blood NHT NA Urine Protein Negative NA Urobilinogen 0.2 0.1-1.0 NA Urine Nitrite Negative NA Urine Leukocyte Negative NA Normal UA Yes Urine Culture No CBC w\ Manual Diff [id number], 85 027 Reviewed date:11/18/2024 09:28:45 AM Interpretation: Performing Lab: Notes/Report: Diagnosis Description: 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 Diagnosis Description: Encounter for other preprocedural examination Diagnosis Description: vp packaging (current) use of opiate analgesic WBC 8.6 4.5-11.0 X10'3 RBC 5.25 4.50-5.90 X10'6 Hgb 15.4 13.5-17.5 G/DL Hct 47.9 41.0-53.0 % MCV 91.2 80.0-100.0 FL MCH 29.3 27.0-31.0 PG MCHC 32.2 31.0-37.0 G/DL Platelet 260 150-400 X10'3 RDW-SD 42.7 35.0-49.0 FL RDW-CV 12.6 12.2-15.6 % MPV 9.0 9.2-12.0 FL LOW Band/Segs Man 76 40-70 % HI Lymph Man 15 22-44 % LOW Monocyte Man 7 3-7 % Eos Man 1 2-4 % LOW Basophil Man 1 0-1 % PLT Appear Adequate RBC Morph Normal Morph Band Man 0 5-11 % LOW Vitamin D Total (B) [id number] Reviewed date:11/18/2024 09:28:45 AM Interpretation: Performing Lab: Notes/Report: Diagnosis Description: 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 < 30 ng/mL Basic Metabolic Panel (BMP) [id number] Reviewed date:11/18/2024 09:28:45 AM Interpretation: Performing Lab: Notes/Report: Diagnosis Description: 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 Diagnosis Description: Encounter for other preprocedural examination Diagnosis Description: long-term (current) use of opiate analgesic Sodium 144 136-145 MMOL/L Potassium 4.4 3.5-5.1 MMOL/L Chloride 106 98-107 MMOL/L CO2 28.2 20.0-31.0 MMOL/L Glucose Serum 102 71-110 MG/DL Testing p erformed at [facility] Arlet Dickens, [place] [address]. CLIA ID#: [id number] BUN 15 7-21 MG/DL Creat 1.06 .57-1.17 MG/DL Use of this assay is not recommended for patients undergoing treatment with phenindione, due to the potential for falsely depressed results. S-snvmba-w-benzoquino ne imine (NAPQI) is a metabolite of acetaminophen, NAPQI concentrations of apparoximately 10 mg/L correlation to toxic levels of acetaminophen demonstrates a greater than or equil to 10% change in results. NAPQI concentrations greater than this may lead to falsely depressed results for patient samples. GFR 79.7 NA Calculation pe rformed from GFR calculator provided by the [employer]. Glomerular Filtration rate(GRF) is the best overall index of kidney function. Normal GFR varies according to age,sex, body size, and declines with age. The [employer] recommends using the CKD-EPI Creatinine Equation(2020) to estimate GFR. 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 Diagnosis Description: Encounter for other preprocedural examination Diagnosis Description: long-term (current) use of opiate analgesic MRSA Screen NOT DETECTED NA Fluoro for Needle Placement Left-[id number] Reviewed date:10/15/2024 02:32:15 PM Interpretation: Performing Lab: Notes/Report: [id number]&org=iSite Fluoro for Needle Placement Left-[id number] Reviewed date:10/15/2024 02:32:10 PM Interpretation: Performing Lab: Notes/Report: See Below For Report Fluoro for Needle Placement Left Read See Below For Report Antibody Screen [id number] Reviewed date:11/18/2024 09:28:28 AM Interpretation: Performing Lab: Notes/Report: Blood Bank ID [id number] Unknown ABSC Interp Negative ABORh 03628, [id number] Reviewed date:11/18/2024 09:28:28 AM Interpretation: Performing Lab: Notes/Report: ABO/Rh Interp O POS Unknown Tox Results Reviewed date:07/08/2025 02:55:17 PM Interpretation: Performing Lab: Notes/Report: Tox Results Reviewed date:01/21/2025 10:44:16 AM Interpretation: Performing Lab: Notes/Report: Urine Confirmation Panel (in strument) - [id number] Reviewed date:01/21/2025 10:44:16 AM Interpretation: Performing Lab: Notes/Report: 6-Acetylmorphine 0 <6 ng/mL N This neftali t was developed and its performance characteristics determined by [facility]. It has not been cleared or approved by the U.S. Food and Drug Administration. 7-Aminoclonazepam 0 <60 ng/mL N This te st was developed and its performance characteristics determined by [facility]. It has not been cleared or approved by the U.S. Food and Drug Administration. Alprazolam 0 <60 ng/mL N This test was developed and its performance characteristics determined by [facility]. It has not been cleared or approved by the U.S. Food and Drug Administration. Amphetamine 0 <75 ng/mL N This test was developed and its performance characteristics determined by [facility]. It has not been cleared or approved by the U.S. Food and Drug Administration. aOH-Alprazolam 0 <60 ng/mL N This test was developed and its performance characteristics determined by [facility]. It has not been cleared or approved by the U.S. Food and Drug Administration. Buprenorphine 0.0 <7.5 ng/mL N This test w as developed and its performance characteristics determined by [facility]. It has not been cleared or approved by the U.S. Food and Drug Administration. Norbuprenorphine 0.0 <37.5 ng/mL N This te st was developed and its performance characteristics determined by [facility]. It has not been cleared or approved by the U.S. Food and Drug Administration. Carisoprodol 4 <75 ng/mL N This test wa s developed and its performance characteristics determined by [facility]. It has not been cleared or approved by the U.S. Food and Drug Administration. Codeine 0 <75 ng/mL N This test was developed and its performance characteristics determined by [facility]. It has not been cleared or approved by the U.S. Food and Drug Administration. EDDP 0 <75 ng/mL N This test was developed and its performance characteristics determined by [facility]. It has not been cleared or approved by the U.S. Food and Drug Administration. Fentanyl 0 <6 ng/mL N This test was developed and its performance characteristics determined by [facility]. It has not been cleared or approved by the U.S. Food and Drug Administration. Hydrocodone 733 <75 ng/mL H This test was developed and its performance characteristics determined by [facility]. It has not been cleared or approved by the U.S. Food and Drug Administration. Hydromorphone 209 <75 ng/mL H This test w as developed and its performance characteristics determined by [facility]. It has not been cleared or approved by the U.S. Food and Drug Administration. Lorazepam 0 <60 ng/mL N This test was developed and its performance characteristics determined by [facility]. It has not been cleared or approved by the U.S. Food and Drug Administration. MDMA 0 <75 ng/mL N This test was developed and its performance characteristics determined by [facility]. It has not been cleared or approved by the U.S. Food and Drug Administration. Meperidine 0.0 <37.5 ng/mL N This test was developed and its performance characteristics determined by [facility]. It has not been cleared or approved by the U.S. Food and Drug Administration. Meprobamate 0 <75 ng/mL N This test was developed and its performance characteristics determined by [facility]. It has not been cleared or approved by the U.S. Food and Drug Administration. Methamphetamine 0 <75 ng/mL N This test was developed and its performance characteristics determined by [facility]. It has not been cleared or approved by the U.S. Food and Drug Administration. Methadone 0 <75 ng/mL N This test was developed and its performance characteristics determined by [facility]. It has not been cleared or approved by the U.S. Food and Drug Administration. Morphine 0 <75 ng/mL N This test was developed and its performance characteristics determined by [facility]. It has not been cleared or approved by the U.S. Food and Drug Administration. Nordiazepam 0 <60 ng/mL N This test was developed and its performance characteristics determined by [facility]. It has not been cleared or approved by the U.S. Food and Drug Administration. Norfentanyl 0 <6 ng/mL N This test was developed and its performance characteristics determined by [facility]. It has not been cleared or approved by the U.S. Food and Drug Administration. Normeperidine 0.0 <37.5 ng/mL N This test was developed and its performance characteristics determined by [facility]. It has not been cleared or approved by the U.S. Food and Drug Administration. O-desmethyltramadol 0 <75 ng/mL N This test was developed and its performance characteristics determined by [facility]. It has not been cleared or approved by the U.S. Food and Drug Administration. Oxazepam 0 <60 ng/mL N This test was developed and its performance characteristics determined by [facility]. It has not been cleared or approved by the U.S. Food and Drug Administration. Oxycodone 0.0 <37.5 ng/mL N This test was developed and its performance characteristics determined by [facility]. It has not been cleared or approved by the U.S. Food and Drug Administration. Oxymorphone 0 <75 ng/mL N This test was developed and its performance characteristics determined by [facility]. It has not been cleared or approved by the U.S. Food and Drug Administration. Phencyclidine 0.0 <7.5 ng/mL N This test w as developed and its performance characteristics determined by [facility]. It has not been cleared or approved by the U.S. Food and Drug Administration. Tapentadol 0.1 <37.5 ng/mL N This test was developed and its performance characteristics determined by [facility]. It has not been cleared or approved by the U.S. Food and Drug Administration. Temazepam 0 <60 ng/mL N This test was developed and its performance characteristics determined by [facility]. It has not been cleared or approved by the U.S. Food and Drug Administration. Tramadol 6 <75 ng/mL N This test was developed and its performance characteristics determined by [facility]. It has not been cleared or approved by the U.S. Food and Drug Administration. Norhydrocodone 533 <75 ng/mL H This test was developed and its performance characteristics determined by [facility]. It has not been cleared or approved by the U.S. Food and Drug Administration. Noroxycodone 0 <38 ng/mL N This test wa s developed and its performance characteristics determined by [facility]. It has not been cleared or approved by the U.S. Food and Drug Administration. Pregabalin 0 <225 ng/mL N This test was developed and its performance characteristics determined by [facility]. It has not been cleared or approved by the U.S. Food and Drug Administration. Gabapentin 0 <225 ng/mL N This test was developed and its performance characteristics determined by [facility]. It has not been cleared or approved by the U.S. Food and Drug Administration. Benzoylecgonine 0.0 <37.5 ng/mL N This neftali t was developed and its performance characteristics determined by [facility]. It has not been cleared or approved by the U.S. Food and Drug Administration. 4-Hydroxy Xylazine 0 <25 ng/mL N This t est was developed and its performance characteristics determined by [facility]. It has not been cleared or approved by the U.S. Food and Drug Administration. zLeon Hip--[id number] Reviewed date:11/18/2024 09:28:28 AM Interpretation: Performing Lab: Notes/Report: [id number]&org=iSite Hip 2-3 View Uni Left-[id number] Reviewed date:11/18/2024 09:28:21 AM Interpretation: Performing Lab: Notes/Report: See Below For Report Hip 2-3 View Uni Left patient in recovery room Read See Below For Report CBC Reflex Man Diff [id number], [id number] 5007 Reviewed date:11/18/2024 09:28:21 AM Interpretation: Performing Lab: Notes/Report: WBC 14.1 4.5-11.0 X10'3 HI RBC 4.37 4.50-5.90 X10'6 LOW Hgb 12.9 13.5-17.5 G/DL LOW Hct 40.7 41.0-53.0 % LOW MCV 93.1 80.0-100.0 FL MCH 29.5 27.0-31.0 PG MCHC 31.7 31.0-37.0 G/DL Platelet 236 150-400 X10'3 RDW-SD 44.4 35.0-49.0 FL RDW-CV 13.0 12.2-15.6 % MPV 9.1 9.2-12.0 FL LOW Review Auto Diff Conf WBC Auto Diff--[id number] Reviewed date:11/18/2024 09:28:21 AM Interpretation: Performing Lab: Notes/Report: Added by Discern Rules Neutro Auto% 90.5 40.0-70.0 % HI Lymph Auto% 3.3 22.0-44.0 % LOW Taliaferro Auto% 5.6 3.0-7.0 % Eos Auto% .0 2.0-4.0 % LOW Baso Auto% 0.1 0.0-1.0 % NRBC% .00 .00-.20 /100 intact WBC's Neutro Abs 12.71 .80-7.70 HI Absolute Neutrophil Count [id number] NA Lymph Abs .47 .10-4.10 Taliaferro Abs .79 .20-1.00 Eos Abs .00 .00-.40 Baso Abs .02 .00-.20 NRBC# .00 .00-.20 Imm Gran Abs .07 .00-.10 Imm Gran% .5 .0-.4 % HI Urine Drug Screen (cup read) - [id number] Reviewed date:03/13/2025 10:09:16 AM Interpretation: Performing Lab: Notes/Report: OPI + Chest PA/Lat-[id number] Reviewed date:11/18/2024 09:28:51 AM Interpretation: Performing Lab: Notes/Report: [id number]&org=Danae bakerOR Hip--[id number] Reviewed date:11/18/2024 09:28:21 AM Interpretation: Performing Lab: Notes/Report: See Below For Report OR Hip Read See Below For Report BB ABORH-[id number] Reviewed date:11/18/2024 09:28:21 AM Interpretation: Performing Lab: Notes/Report: BB ABORchristi Interp O POS Unknown Hip 2-3 View Uni Left-[id number] Reviewed date:11/18/2024 09:28:28 AM Interpretation: Performing Lab: Notes/Report: [id number]&org=Danae Chest PA/Lat-31022 Reviewed date:11/18/2024 09:28:45 AM Interpretation: Performing Lab: Notes/Report: See Below For Report Chest PA/Lat Diagnosis Description: 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 [address]. CLIA ID#: [id number] BUN 19 7-21 MG/DL Creat 1.00 .57-1.17 MG/DL Use of this assay is not recommended for patients undergoing treatment with phenindione, due to the potential for falsely depressed results. P-kripae-e-benzoquino ne imine (NAPQI) is a metabolite of acetaminophen, NAPQI concentrations of apparoximately 10 mg/L correlation to toxic levels of acetaminophen demonstrates a greater than or equil to 10% change in results. NAPQI concentrations greater than this may lead to falsely depressed results for patient samples. GFR 85.8 NA Calculation pe rformed from GFR calculator provided by the [employer]. Glomerular Filtration rate(GRF) is the best overall index of kidney function. Normal GFR varies according to age,sex, body size, and declines with age. The National [employer] recommends using the CKD-EPI Creatinine Equation(2020) to estimate GFR. Anion Gap 12 5-15 BUN/Creat Ratio 19.0 12.0-20.0 % Calcium 9.0 8.7-10.4 MG/DL Osmo Serum,Calculated 299 280-300 MOSM/KG Reason For Referral Reason Postoperative rehabi litation: Twice a week, 6-8 we Diagnosis 1 Status post total hi p replacement, 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) Referral Organization [facility] Referring Provider First Name Jese Referring Provider Last Name John Referring Provider Speciality Orthopedic Surgery Referred Provider Physical Therapy Lucy [facility] [place] Referred Provider Specialty Physical The rapist Referral Priority Routine Reason R shoulder Diagnosis 1 Pain in right should er (M25.511) Referring Provider First Name Larisa Referring Provider Last Name Lalo Referring Provider Speciality Pain Medic ine Referred Organization [facility] Referred Provider Jese Lopez Referred Address [address] [facility] [place] Referral Priority Routine Reason R shoulder Diagnosis 1 Pain in right should er (M25.511) Referral Organization [facility] Referring Provider First Name Larisa Referring Provider Last Name Lalo Referring Provider Speciality Pain Medic ine Referred Organization [facility] Referred Provider Jese Lopez Referred Address [address],[address] Referred Provider Specialty Orthopedic S urgery Referral Priority Routine Reason Evaluate and treat Diagnosis 1 Status post total re placement of right shoulder (Z96.611) Referral Organization [facility] Referring Provider First Name Jese Referring Provider Last Name John Referring Provider Speciality Orthopedic Surgery Referred Provider [place] Referred Provider Specialty Orthopedic S urgery Referral Priority Routine Medications Medication SIG (Take, Route, Frequency, Duration) Notes Start Date End Date Status Ventolin HFA 108 (90 Base) MCG/ACT Aerosol Solution Inhale 1 to 2 puff(s) by mouth q 4 to 6 hr prn Inhalation; Duration: 30 Ventolin HFA 90mcg/1actuation Oral Inhaler Inhale 1 to 2 puff(s) by mouth q 4 to 6 hr prn 03/22/2010 Not-Taking predniSONE 20 MG Tablet Oral; Duration: 30 Days Active tiZANidine HCl 4 MG Tablet TAKE 1 TABLET BY MOUTH TWICE A DAY Oral; Duration: 30 Days Active HYDROcodone-Acetami nophen 7.5-325 MG Tablet 1 tablet as needed Orally every 6 hrs; Duration: 30 days Do not exceed 4 per day Fill on 09/10/2025 09/05/2025 10/10/2025 Active Orencia Active HYDROcodone-Acetami nophen 7.5-325 MG Tablet 1 tablet Orally every 6 hrs; Duration: 30 days Do not exceed 4 per day Fill on 09/05/2025 11/09/2025 Active Pantoprazole Sodium 40 MG Tablet Delayed Release Oral; Duration: 90 Days Active B Complex Active Limbrel 500 mg Capsule Take 1 capsule(s) by mouth q12h Oral; Duration: 30 Limbrel 500mg Capsules Take 1 capsule(s) by mouth q12h 03/22/2010 Not-Taking Eye Health Active Osteo Bi-Flex *Reorder from Pump! for eRx and Interaction Alerts* Not-Taking Vitamin D3 1000 UNIT Capsule 1 capsule Orally Once a day Active Aspirin 81 MG Tablet Chewable 2 tab(s) po q pm Oral; Duration: 30 Aspirin (ASA) 81mg Chewable Tablet 2 tab(s) po q pm #100 (One Laurel) tablet(s) 03/22/2010 Active Aspirin *Pick strength-form from Pump! for eRX* Not-Taking Losartan Potassium 100 MG Tablet TAKE 1 TABLET BY MOUTH EVERY DAY Oral; Duration: 57 Days Active Glucosamine HCl 1,500 mg Tablet Take 1 tablet(s) by mouth daily Oral; Duration: 30 *please review for potential update for e-prescription and drug interaction check* Glucosamine 1,500mg Tablet Take 1 tablet(s) by mouth daily 03/22/2010 Active PreserVision AREDS *Pick strength-form from Pump! for eRX* Not-Taking Valsartan *Pick strength-form from [facility] for eRX* Not-Taking Social History Sex Assigned At : Social History Observation Description Sex Assigned At Male Social History Drugs/Alcohol: Social Info Question Answer Notes Caffeine Intake: 3-4 cups per day Additional Details Category Social Info Options Details Migrated Social History Migrated Social History Alcoholic beverages? - No, Currently on disability? - Yes, Drug or substance abuse? - No, Marital Status - , Nonprescription drug use? - No, Smoking - No, Working currently? - No Section Notes: past tobacco use past alcohol use past tobacco use past alcohol use past tobacco use past alcohol use past tobacco use past alcohol use past tobacco use past alcohol use past tobacco use past alcohol use past tobacco use past alcohol use past tobacco use past alcohol use past tobacco use past alcohol use past tobacco use past alcohol use past tobacco use past alcohol use Problems Problem Type SNOMED Code ICD Code Onset Dates Problem Status W/U Status Risk Notes Problem Chronic pain due to injury (321988788) 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) 05/14/20 Active confirmed Problem Chronic pain syndrome (228946497) Chronic pain syndrome (G89.4) 05/14/20 24 Active confirmed Problem Cervicalgia (74473514) Cervicalgia (M54.2) 05/14/20 24 Active confirmed Problem Abnormal gait (95464626) Unspecified abnormalities of gait and mobility (R26.9) 05/14/20 24 Active confirmed Problem High risk drug monitoring status (321955088) vp packaging (current) use of opiate analgesic (Z79.891) Active confirmed Problem Arthritis of left hip (65576490108449 05) Arthritis of left hip (M16.12) Active confirmed Problem History of total replacement of left hip joint (61466867708153 05) Status post total hip replacement, 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) Active confirmed Problem 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) Active confirmed Problem Total hip replacement Prosthesis (113757897) S/P total right hip arthroplasty (Z96.641) Active confirmed Problem Rheumatoid arthritis (34365675) 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 (M05.752) Active confirmed Problem Visual disturbance (81497057) Unspecified visual disturbance (368.9) 04/07/20 11 Active confirmed [id number] 11- Problem Rheumatoid arthritis (09702213) Rheumatoid arthritis (714.0) 03/22/20 10 Active confirmed [id number] 11- Problem Essential hypertension (52773330) Essential hypertension (401.1) 03/22/20 10 Active confirmed [id number] 11- Problem Headache (71022710) Headache (307.81) 04/07/20 11 Problem resolved confirmed [id number] 11- Problem Atypical mole syndrome (468640064) Atypical mole (238.2) 03/22/20 10 Problem resolved confirmed [id number] 11- Problem Celiac artery compression syndrome (1947309) 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) 03/22/20 10 Problem resolved confirmed [id number] 11- Vital Signs Heart Rate 63 /min 08/08/2025 Height-cm 182.88 cm 09/04/2025 Oximetry 98 % 08/08/2025 Blood pressure diastolic 78 mm Hg 08/08/2025 Weight-kg 81.65 kg 09/04/2025 Height 72.00 in 09/04/2025 Blood pressure systolic 124 mm Hg 08/08/2025 Weight 180 lbs 09/04/2025 BMI 24.41 kg/m2 09/04/2025 Encounters Encounter Location Date Provider Diagnosis [facility] [place] [address] [place] [address] 09/04/2025 Larisa May Chronic pain due to trauma G89.21 ; Cervicalgia M54.2 ; 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 M05.752 ; Pain in right shoulder M25.511 ; Unspecified abnormalities of gait and mobility R26.9 and vp packaging (current) use of opiate analgesic Z79.891 [facility] [address] [place] [address] 08/08/2025 Jese Lopez Status post total replacement of right shoulder Z96.611 [facility] [place] [address] [place] [address] 07/03/2025 Larisa May Chronic pain due to trauma G89.21 ; Cervicalgia M54.2 ; 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 M05.752 ; Pain in right shoulder M25.511 ; Unspecified abnormalities of gait and mobility R26.9 and long-term (current) use of opiate analgesic Z79.891 [facility] [address] [place] [address] 06/27/2025 Jese Lopez Status post total hip replacement, left Z96.642 [facility] [place] [address] [place] [address] 05/07/2025 Sebas Jaime Chronic pain due to trauma G89.21 ; Cervicalgia M54.2 ; 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 M05.752 ; Pain in right shoulder M25.511 ; Unspecified abnormalities of gait and mobility R26.9 and long-term (current) use of opiate analgesic Z79.891 [facility] [place] [address] [place] [address] 03/13/2025 Larisa May Chronic pain due to trauma G89.21 ; Cervicalgia M54.2 ; 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 M05.752 ; Pain in right shoulder M25.511 ; Unspecified abnormalities of gait and mobility R26.9 and vp packaging (current) use of opiate analgesic Z79.891 [facility] [place] [address] [place] [address] 01/16/2025 Larisa Lalo Chronic pain due to trauma G89.21 ; Cervicalgia M54.2 ; 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 M05.752 ; Pain in right shoulder M25.511 ; Unspecified abnormalities of gait and mobility R26.9 and vp packaging (current) use of opiate analgesic Z79.891 [facility] [address] [place] [address] 12/27/2024 Jese Lopez Status post total hip replacement, left Z96.642 [facility] [place] [address] [place] [address] 11/06/2024 Sebas Jaime Chronic pain due to trauma G89.21 ; Cervicalgia M54.2 ; 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 M05.752 ; Pain in right shoulder M25.511 ; Unspecified abnormalities of gait and mobility R26.9 and long-term (current) use of opiate analgesic Z79.891 [facility] [address] [place] [address] 10/31/2024 Jese Lopez 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 M05.752 ; Encounter for other preprocedural examination Z01.818 and long-term (current) use of opiate analgesic Z79.891 [facility] [address] [place] [address] 10/09/2024 Jese [facility] [address] [place] [address] 11/22/2024 Jese Lopez Status post total replacement of left hip Z96.642 [facility] [address] [place] [address] 11/11/2024 Jese [facility] [address] [place] [address] 01/16/2025 Yaritza Bazan-Muna [facility] [address] [place] [address] 01/14/2025 Jese [facility] [address] [place] [address] 12/23/2024 Jese [facility] [address] [place] [address] 12/17/2024 Jese Lopez S/P total right hip arthroplasty Z96.641 [facility] [address] [place] [address] 12/16/2024 Jese [facility] [address] [place] [address] 10/15/2024 Jese [facility] [place] [address] [place] [address] 09/04/2025 Sebas Jaime Pain in right shoulder M25.511 [facility] [address] [place] [address] 08/25/2025 Jese Lopez [facility] [place] [address] [facility] [place] [address] 07/03/2025 Sebas Jaime Pain in right shoulder M25.511 [facility] [place] [address] [place] [address] 03/13/2025 Sebas Jaime [facility] [address] [place] [address] 02/11/2025 Jese Lopez Assessments Encounter Date Diagnosis (ICD Code) Assessment Notes Treatment Notes Treatment Clinical Notes Section Notes 01/16/2025 Chronic pain due to trauma (ICD-10 - G89.21) I had a nice discussion with the patient today regarding his chronic pain complaints. He did have left hip surgery and states he is overall doing much better. He is doing physical therapy right now. He states being on the walker, crutches, then cane did aggravate his right shoulder some. He is hoping this will settle down on its own. He is doing well on his current medication regimen so he will continue that at present level. He does have quite a bit of extra so we will adjust the fill date for him. He denies any other changes since we last seen him or any untoward side effects of the medication. He will continue his medication at present level and return to clinic in 2 months to monitor for treatment effectiveness and compliance. RECOMMEND URINE TESTING TODAY Urine drug screening will be performed today to monitor compliance with opioid therapy or to serve as a baseline screen for a patient who may be a candidate for opioid therapy in the future, pending UDS results. We will monitor with in-office testing (rapid testing) today and review the results prior to dispensing prescription. All positive results will be sent for quantitative analysis to ensure accuracy and quantify amounts. Any expected positive results that return negative will also be sent for quantitative analysis. Any questionable read or any medication we cannot test for in the office confidently will be sent for quantitative analysis, as well. Patient has been made aware of this policy and agrees to abide by our urine testing policy. The patient continues with chronic pain requiring treatment to help restore function and improve quality of life. Risks of opioid therapy as well as interaction of opioids with alcohol, illicit drugs, muscle relaxers, and other sedative medications are reviewed briefly with patient again today. The patient has trialed all other reasonable treatment options and uses the medication to alleviate pain in order to remain active and rest with less pain. No clinically relevant medication side effects are noted. 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 Patient is advised that best long-term goals include increased activity, core strengthening, proper weight management, coping strategies, avoidance of painful triggers, and targeted interventional therapy. We will see the patient for routine follow up in accordance with all clinic policies. We did remind patient today of current guidelines to decrease opioid when possible. We will continue to stress nonopioid treatment. 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 I suspect it is a hemiarthroplasty. It may have been a total at 1 point but apparently with the revisions he was left with a Pablo. He is getting progressive stiffness. I have told him there is not much I can do to help him but I am going to refer him to Dr. [place] to see if he has any suggestions. 07/03/2025 Pain in right shoulder (ICD-10 - M25.511) 06/27/2025 Status post total hip replacement, left (ICD-10 - Z96.642) This individual functionally is doing extremely well. His hip replacement has given him a pain-free hip and he is doing all activities that he wishes. I would like to see him back in 4 months. Will get an x-ray of his left hip. That will be basically a year out from his surgery. 05/07/2025 Chronic pain due to trauma (ICD-10 - G89.21) I had a nice visit with the patient today regarding his chronic pain issues. He had a trip recently to the [facility] [employer], and he did have some increased pain with all the increased activity. Otherwise, he has been doing pretty well. He is going to continue to work on having more days when he doesn't take the whole 4 tablets and having a little bit extra for worse days, and we will see how he does with that. We will continue his medications unchanged for now and see him back in a couple of months. 10/31/2024 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 (ICD-10 - M05.752) This individual has rheumatoid arthritis of his left hip. We tried the intra-articular injection about a month ago. It gave him limited relief. His pain is just back where it was. After discussion of the issue with the patient and his we will proceed on with direct anterior left total hip arthroplasty. Risk of surgery such as infection which I have told him is slightly increased because of his history of inflammatory arthritis is possible. Blood loss and continued pain. Perioperatively he will need some oral extended antibiotics. Plus of course we will use 1 g of vancomycin powder intra-articular of the left hip joint at the time of surgery. Other risk such as fracture etc. are described as well. 09/04/2025 Chronic pain due to trauma (ICD-10 - G89.21) I had a nice discussion with the patient today regarding his chronic pain complaints. He does report that he seen Dr. Lopez regarding his shoulder and states Dr. Lopez was not comfortable doing anything with that so has referred him to a shoulder specialist in [place]. He will keep us updated on this. He denies any other changes since we last seen him or any untoward side effects of the medication. I did discuss lifestyle modifications as well as a bowel regimen. He will continue his medication at present level and return to clinic in 2 months to monitor for treatment effectiveness and compliance. The patient continues with chronic pain requiring treatment to help restore function and improve quality of life. Risks of opioid therapy as well as interaction of opioids with alcohol, illicit drugs, muscle relaxers, and other sedative medications are reviewed briefly with patient again today. The patient has trialed all other reasonable treatment options and uses the medication to alleviate pain in order to remain active and rest with less pain. No clinically relevant medication side effects are noted. 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 Patient is advised that best long-term goals include increased activity, core strengthening, proper weight management, coping strategies, avoidance of painful triggers, and targeted interventional therapy. We will see the patient for routine follow up in accordance with all clinic policies. We did remind patient today of current guidelines to decrease opioid when possible. We will continue to stress nonopioid treatment. URINE TESTING TODAY; POINT OF SERVICE Urine drug screening will be performed today to monitor compliance with opioid therapy or to serve as a baseline screen for a patient who may be a candidate for opioid therapy in the future, pending UDS results. We will monitor with in-office testing (rapid testing) today and review the results prior to dispensing prescription, as well. Patient has been made aware of this policy. 11/22/2024 Status post total replacement of left hip (ICD-10 - Z96.642) This individual wound looks excellent. He is doing I think fairly well with his initial therapy postop rehab. Therapy is due to start either today or next week. This will be home health. He would like more pain medicine which we will renew. I am going to see him in 4 weeks with x-rays. 12/27/2024 Status post total hip replacement, left (ICD-10 - Z96.642) Lexus is is about 2-1/2 months out on left total hip replacement. I am going to go ahead and order some further physical therapy for him. I think it will help. I will also renew his analgesic medication. We will recheck in about 6 months. 07/03/2025 Chronic pain due to trauma (ICD-10 - G89.21) I had a nice discussion with the patient today regarding his chronic pain complaints. He continues to do very well after his hip surgery. He states his right shoulder is getting increasingly more painful for him and he is unable to use it like he used to. He reports has had multiple surgeries on the shoulder. He is requesting a referral to Dr. Lopez to have him look at this as he recently did his hip surgery. We will send a referral for him. He is doing reasonably well on his current medication regimen so we will continue that at present level. He denies any other changes since we last seen him or any untoward side effects of the medication. I did discuss lifestyle modifications as well as a bowel regimen. He will return to clinic in 2 months to monitor for treatment effectiveness and compliance. The patient continues with chronic pain requiring treatment to help restore function and improve quality of life. Risks of opioid therapy as well as interaction of opioids with alcohol, illicit drugs, muscle relaxers, and other sedative medications are reviewed briefly with patient again today. The patient has trialed all other reasonable treatment options and uses the medication to alleviate pain in order to remain active and rest with less pain. No clinically relevant medication side effects are noted. 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 Patient is advised that best long-term goals include increased activity, core strengthening, proper weight management, coping strategies, avoidance of painful triggers, and targeted interventional therapy. We will see the patient for routine follow up in accordance with all clinic policies. We did remind patient today of current guidelines to decrease opioid when possible. We will continue to stress nonopioid treatment. RECOMMEND URINE TESTING TODAY Urine drug screening will be performed today to monitor compliance with opioid therapy or to serve as a baseline screen for a patient who may be a candidate for opioid therapy in the future, pending UDS results. We will monitor with in-office testing (rapid testing) today and review the results prior to dispensing prescription. All positive results will be sent for quantitative analysis to ensure accuracy and quantify amounts. Any expected positive results that return negative will also be sent for quantitative analysis. Any questionable read or any medication we cannot test for in the office confidently will be sent for quantitative analysis, as well. Patient has been made aware of this policy and agrees to abide by our urine testing policy. 03/13/2025 Chronic pain due to trauma (ICD-10 - G89.21) I had a nice discussion with the patient today regarding his chronic pain complaints. He states he is overall doing well on his current medication regimen and states his hip is doing pretty well after his surgery. He did finish up physical therapy for his hip. He does state that he was having quite a bit of right shoulder pain again from having to use a walker and crutches after his hip surgery. He does state that the shoulder is doing much better than it was. He did have an abscessed tooth and ended up getting his tooth pulled and got short-term prescription of hydrocodone and tramadol from his dentist. He has no longer taking these. He denies any other changes since we last seen him or any untoward side effects of the medication. He will continue his medication at present level and return to clinic in 2 months to monitor for treatment effectiveness and compliance as well as for biannual appointment with Dr. Jaime. The patient continues with chronic pain requiring treatment to help restore function and improve quality of life. Risks of opioid therapy as well as interaction of opioids with alcohol, illicit drugs, muscle relaxers, and other sedative medications are reviewed briefly with patient again today. The patient has trialed all other reasonable treatment options and uses the medication to alleviate pain in order to remain active and rest with less pain. No clinically relevant medication side effects are noted. 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 Patient is advised that best long-term goals include increased activity, core strengthening, proper weight management, coping strategies, avoidance of painful triggers, and targeted interventional therapy. We will see the patient for routine follow up in accordance with all clinic policies. We did remind patient today of current guidelines to decrease opioid when possible. We will continue to stress nonopioid treatment. URINE TESTING TODAY; POINT OF SERVICE Urine drug screening will be performed today to monitor compliance with opioid therapy or to serve as a baseline screen for a patient who may be a candidate for opioid therapy in the future, pending UDS results. We will monitor with in-office testing (rapid testing) today and review the results prior to dispensing prescription, as well. Patient has been made aware of this policy. 12/17/2024 S/P total right hip arthroplasty (ICD-10 - Z96.641) 11/06/2024 Chronic pain due to trauma (ICD-10 - G89.21) 11/06/2024 Cervicalgia (ICD-10 - M54.2) 03/13/2025 Cervicalgia (ICD-10 - M54.2) 07/03/2025 Cervicalgia (ICD-10 - M54.2) 05/07/2025 Cervicalgia (ICD-10 - M54.2) 11/06/2024 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 (ICD-10 - M05.752) 10/31/2024 Encounter for other preprocedural examination (ICD-10 - Z01.818) 09/04/2025 Cervicalgia (ICD-10 - M54.2) 01/16/2025 Cervicalgia (ICD-10 - M54.2) 01/16/2025 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 (ICD-10 - M05.752) 10/31/2024 vp packaging (current) use of opiate analgesic (ICD-10 - Z79.891) 03/13/2025 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 (ICD-10 - M05.752) 09/04/2025 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 (ICD-10 - M05.752) 07/03/2025 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 (ICD-10 - M05.752) 05/07/2025 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 (ICD-10 - M05.752) 11/06/2024 Pain in right shoulder (ICD-10 - M25.511) 11/06/2024 Unspecified abnormalities of gait and mobility (ICD-10 - R26.9) 03/13/2025 Pain in right shoulder (ICD-10 - M25.511) 07/03/2025 Pain in right shoulder (ICD-10 - M25.511) 01/16/2025 Pain in right shoulder (ICD-10 - M25.511) 05/07/2025 Pain in right shoulder (ICD-10 - M25.511) 09/04/2025 Pain in right shoulder (ICD-10 - M25.511) 01/16/2025 Unspecified abnormalities of gait and mobility (ICD-10 - R26.9) 07/03/2025 Unspecified abnormalities of gait and mobility (ICD-10 - R26.9) 05/07/2025 Unspecified abnormalities of gait and mobility (ICD-10 - R26.9) 03/13/2025 Unspecified abnormalities of gait and mobility (ICD-10 - R26.9) 11/06/2024 long-term (current) use of opiate analgesic (ICD-10 - Z79.891) 09/04/2025 Unspecified abnormalities of gait and mobility (ICD-10 - R26.9) 09/04/2025 long-term (current) use of opiate analgesic (ICD-10 - Z79.891) 03/13/2025 vp packaging (current) use of opiate analgesic (ICD-10 - Z79.891) 05/07/2025 vp packaging (current) use of opiate analgesic (ICD-10 - Z79.891) 07/03/2025 long-term (current) use of opiate analgesic (ICD-10 - Z79.891) RECOMMEND URINE TESTING TODAY Urine drug screening will be performed today to monitor compliance with opioid therapy or to serve as a baseline screen for a patient who may be a candidate for opioid therapy in the future, pending UDS results. We will monitor with in-office testing (rapid testing) today and review the results prior to dispensing prescription. All positive results will be sent for quantitative analysis to ensure accuracy and quantify amounts. Any expected positive results that return negative will also be sent for quantitative analysis. Any questionable read or any medication we cannot test for in the office confidently will be sent for quantitative analysis, as well. Patient has been made aware of this policy and agrees to abide by our urine testing policy. 01/16/2025 vp packaging (current) use of opiate analgesic (ICD-10 - Z79.891) 11/06/2024 Other I had a nice vi sit with the patient today regarding his chronic pain issues. Overall, he is doing alright but the hip has been problematic and he has a total hip arthroplasty planned on the left side for Monday. We will provide another prescription and he can just stop taking what we are giving him during the postoperative period while Dr. Lopez is covering his pain. We will plan to see him back in about 8 weeks and proceed accordingly. Nilson Nair, am scribing for Sebas Jaime. Sebas Nair, personally performed the services described in this documentation , as scribed by Nilson Hooker, and it is both accurate and complete. 05/07/2025 Other Joanie, DORYS Lopez, am scribing for Dr. Sebas Jaime. I, Dr. Sebas Jaime, personally performed the services described in this documentation, as scribed by DORYS Lopez, and it is both accurate and complete. Plan Of Treatment Pending Test Test Name Order Date Uni Hip, Pelvis 1V 10/03/2024 Electrocardiogram 12 Lead Tracing-[id number] 10/31/2024 Chest AP/Lateral 10/31/2024 Future Test Test Name Order Date zzzUrine Drug Screen (confirmation by in strument) - [id number] 01/16/2025 Next Appt Details Provider Name:Jese Lopez, 10/31/2025 09:00:00 AM, [address] [place], [address], Provider Name:Sebas Jaime, 11/05/2025 11:00:00 AM, [address] [facility] [place], [address], Insurance Providers Payer Name Payer Address Payer Phone Subscriber Number Group Number Insured Name Patient Relationship to Insured Coverage Start Date Coverage End Date MIRMA - WORK COMP [id number] [place] [address] [phone] Tai Delgado Self - patient is the insured [employer] [facility] [address] [place] [phone] [id number] Tai Delgado Self - patient is the insured [place] Medicare [address] [address] [place] [address] [id number] Tai Delgado Self - patient is the insured Medical (General) History Medical History History ICD Code Positive forHypertension: dx 'd in 2008; uncontrolled; ; Positive forAsthma: dx'd in 2008; moderate severity; ; Positive forRheumatoid Arthritis: since 2007; primarily affecting the fingers, hips, knees, and feet; ; Arthritis High Blood Pressure bronchitis Surgical History Surgery Date(Month/Year) right EDWIN left elbow unspecified left knee unspecified right shoulder surgery x7 Hospitalization History Reason Date(Month/Year) right shoulder
--- OUTSIDE RECORDS SUMMARY | 2025-10-04 16:40 | XMS_ITS | Encounter Summary ---
Author Organization [facility] Address [address] [place] [address] Care Team Providers Care Vp Ad Products And Planning Name Role Phone Non-Staff, Physician Primary Care Provider Unava ilable Encounter Details Date Type Department Care Team (Latest Contact Info) Description 01/06/2004 Outpatient Historical [facility] Medicine [place] [address] [facility] [address] [place] [address] Misael Ornelas DO NO ADDRESS ON FILE HEARING LOSS NOS (Primary Dx); ACUTE BRONCHITIS Social History Tobacco Use Types Packs/Day Years Used Date Smoking Tobacco: Never Assessed Sex and Gender Information Value Date Recorded Sex Assigned at Not on file 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
--- OUTSIDE RECORDS SUMMARY | 2025-10-04 16:40 | XMS_ITS | Encounter Summary ---
Author Organization 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
--- OUTSIDE RECORDS SUMMARY | 2025-10-04 16:40 | XMS_ITS | Encounter Summary ---
Author Organization [facility] Address [address] [place] [address] Care Team Providers Care Auxiliary Engineer Name Role Phone Non-Staff, Physician Primary Care Provider Unava ilable Encounter Details Date Type Department Care Team (Latest Contact Info) Description 12/08/2005 Outpatient Historical [facility] Family Medicine [place] [address] [facility] [address] [place] [address] Inga Garcia, CHILD ABUSE WORKER [address] [place] [phone] ACUTE BRONCHITIS (Primary Dx) Social History Tobacco Use Types Packs/Day Years Used Date Smoking Tobacco: Never Assessed Sex and Gender Information Value Date Recorded Sex Assigned at Not on file 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
--- OUTSIDE RECORDS SUMMARY | 2025-10-04 16:41 | XMS_ITS | Encounter Summary ---
Author Organization [facility] Address [address] [place] [address] Care Team Providers Care Stereo Plotter Operator Name Role Phone Non-Staff, Physician Primary Care Provider Unava ilable Encounter Details Date Type Department Care Team (Latest Contact Info) Description 12/26/2003 Outpatient Historical [facility] Family Medicine [place] [address] [facility] [address] [place] [address] Chucho Aldana MD [address] [address] OTHER PSORIASIS (Primary Dx); ANXIETY STATE NOS; ACUTE SINUSITIS NOS; TENSION HEADACHE Social History Tobacco Use Types Packs/Day Years Used Date Smoking Tobacco: Never Assessed Sex and Gender Information Value Date Recorded Sex Assigned at Not on file 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
--- OUTSIDE RECORDS SUMMARY | 2025-10-04 16:41 | XMS_ITS | Encounter Summary ---
Author Organization [facility] Address [address] [place] [address] Care Team Providers Care Product Operations Associate Name Role Phone Non-Staff, Physician Primary Care Provider Unava ilable Encounter Details Date Type Department Care Team (Latest Contact Info) Description 07/29/2003 Outpatient Historical [facility] General Surgery [address] [address] [address] [place] [phone] [place] [address] [facility] [address] [place] [address] SURGERY FOLLOWUP, UNSPEC (Primary Dx) Social History Tobacco Use Types Packs/Day Years Used Date Smoking Tobacco: Never Assessed Sex and Gender Information Value Date Recorded Sex Assigned at Not on file 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
--- OUTSIDE RECORDS SUMMARY | 2025-10-04 16:41 | XMS_ITS | Encounter Summary ---
Author Organization [facility] Address [address] [place] [address] Care Team Providers Care Slot Key Person Name Role Phone Non-Staff, Physician Primary Care Provider Unava ilable Encounter Details Date Type Department Care Team (Latest Contact Info) Description 08/05/2003 Outpatient Historical [facility] Medicine [place] [address] [facility] [address] [place] [phone] Misael Ornelas DO NO ADDRESS ON FILE ACUTE PHARYNGITIS (Primary Dx); ALLERGIC RHINITIS NOS Social History Tobacco Use Types Packs/Day Years Used Date Smoking Tobacco: Never Assessed Sex and Gender Information Value Date Recorded Sex Assigned at Not on file 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
--- OUTSIDE RECORDS SUMMARY | 2025-10-04 16:42 | XMS_ITS | Clinical Summary ---
Author Organization [facility] Address [address] [place] [address] Care Team Providers Care Maintenance Worker Swimming Pool Name Role Phone Non-Staff, Physician Primary Care Provider Unava ilable Allergies Active Allergy Reactions Criticality Noted Date Comments Silver Sulfadiazine Rash Low 11/03/2014 Medications losartan (COZAAR) 25 mg tablet Take 25 mg by mouth daily. Active aspirin (ECOTRIN EC) 81 mg Tablet, Delayed Release (E.C.) Take 81 mg by mouth daily. Active ALCIDES RX ADULT TPN SGF - PERIPHERAL LINE STANDARD PREMIX 2-1 PANEL Active Oxycodone-Aceta minophen 5-300 mg Tablet Take by mouth. Activ e HYDROcodone-liv taminophen (NORCO) 5-325 mg tablet Take 1 Tab by mouth every 4 hours as needed. Active etanercept (ENBREL) 50 mg/mL (0.98 mL) Syringe Inject by subcutaneous injection every 7 days. Active predniSONE (DELTASONE) 20 mg tabletIndicatio ns:Contact dermatitis Take 3 tabs daily x 3 d, then 2 tabs daily x 3 d, then 1 tab daily x 3 d, then 1/2 tab daily x 4 d 20 Tab 0 4 Active Active Problems No known active problems Social History Tobacco Use Types Packs/Day Years Used Date Smoking Tobacco: Former Smokeless Tobacco: Never Alcohol Use Standard Drinks/Week Comments No 0 (1 standard drink = 0.6 oz pur e alcohol) Sex and Gender Information Value Date Recorded Sex Assigned at Not on file Legal Sex Male 3:30 AM SHIP HARBOR PILOT Gender Identity Not on file Sexual Orientation Not on file Last Filed Vital Signs Vital Sign Reading Time Taken Comments Blood Pressure 122/78 11/03/2014 10:43 AM SHIP HARBOR PILOT Pulse 78 11/03/2014 10:43 AM SHIP HARBOR PILOT Temperature 36.6 C (97.9 F) 11/03/2014 10:43 AM SHIP HARBOR PILOT Respiratory Rate 16 11/03/2014 10:43 AM SHIP HARBOR PILOT Oxygen Saturation 95% 11/03/2014 10:43 AM SHIP HARBOR PILOT Inhaled Oxygen Concentration - - Weight 90.7 kg (200 lb) 11/03/2014 10:43 AM SHIP HARBOR PILOT Height 182.9 cm (6') 11/03/2014 10:43 AM SHIP HARBOR PILOT Body Mass Index 27.12 11/03/2014 10:43 AM SHIP HARBOR PILOT Plan of Treatment Health Maintenance Due Date Last Done Comments DTAP/TDAP/TD VACCINES (1 - Tdap) 1982 COLORECTAL SCREENING 2008 Colorectal Cancer Screening 2008 FIT-DNA Q 3 years 2008 FIT/FOBT Q 1 year 2008 Flex Sig/CT Colonography Q 5 years 2008 ZOSTER VACCINE (1 of 2) 2013 INFLUENZA VACCINE (#1) 2025 RSV VACCINE (60+ or ) (1 - 1-dose 75+ series) 2038 Insurance MEDICARE PART A AND B [facility] Care Teams Maintenance Worker Swimming Pool Relationship Specialty Start Date End Date Non-Staff, Physician NO ADDRESS ON FILE PCP - General 04/15/08
--- OUTSIDE RECORDS SUMMARY | 2025-10-04 16:42 | XMS_ITS | Data Portability ---
Author Organization WILLI Martin Syed [facility] [place], [facility] Address [address] [facility] [address] [place] [address] Care Team Providers Care Rollway Worker Name Role Phone DEB GIRALDO Primary Care Provider Unavailabl e Assessment Encounter Date Assessment Date Assessment LastModified by Organization Details LastModified Time 06/26/2024 06/26/2024 Document scribed by Eladio Tatum Translation Director. I was present during interview and exam. I have reviewed and agree with above documentation . Dr. Deb Giraldo. [email or web address] Not available 06/26/2024 14:51:26 Plan of Treatment Reminders Order Date Submit Date Provider Last Modified By Organization Details Last Modified Time Details Appointments None recorded. Lab CMP, serum or plasma 2024 025 [facility], [address] [facility], [facility], [place], [address], 13:45:05 lipid panel, blood 2024 025 [facility], [address] [facility], [facility], [place], [address], 13:45:08 CBC 2024 025 [facility], [address] [facility], [facility] 1, [place], [address], 12:35:07 rapid flu (A+B), PCR 2024 025 [email or web address] [facility] ([facility]), [address] [place], [address], 5 10:41:00 SARS CoV 2 RNA, QL, nasopharynx 2024 025 [email or web address] [facility] ([facility]), [address] [place] [address], [address], 5 10:41:00 rapid strep group A, throat 2023 024 MARCELL [facility] ([facility]), [address] [place] [address], [address], 4 08:55:43 vitamin B12, serum 2023 024 [email or web address] 47 [facility], [address] [place] [address], [address], [place], [address], 4 09:32:53 vitamin D, 25-hydroxy, total, serum 2023 024 [email or web address] 47 [facility], [address] [place] [address], [address], [place], [address], 4 09:32:53 CMP, serum or plasma 2023 024 [email or web address] 47 [facility], [address] [facility], [facility] 1, [place], [address], 4 09:32:53 CBC 2023 024 [email or web address] 47 [facility], [address] [facility], [address], [place], [address], 4 09:32:53 Referral None recorded. Procedures None recorded. Surgeries None recorded. Imaging None recorded. Medication Orders amoxicillin 875 mg-potassiu m clavulanate 125 mg tablet 2024 025 MARCELL [id number], [address], [place], [place], [id number], 10:38:43 Augmentin 875 mg-125 mg tablet 2023 025 [email or web address] [id number], [address], [place], [place], [id number], 10:38:35 Kenalog 40 mg/mL suspension for injection 2023 024 [email or web address] Not available 10:40:35 Patient TargetsNo targets recorded. Patient InstructionsNo instructions recorded. Reason for Referral None Reported. Results Created Date Observation Date Name Description Value Unit Range Abnormal Flag Note LastModifiedBy Organization Detail LastModifiedTime 06/26/2006/26/2024 CBC WBC 14.4 x10 4.5-10 .5 high Not Available [facility] [address] [facility], [place], [address], 06/26/2024 15:53:00 06/26/20 24 06/26/2024 CBC RBC 5.33 x10 4.30-5 .90 Not Available [facility] [address] [facility] 1, [place], [address], 06/26/2024 15:53:00 06/26/20 24 06/26/2024 CBC HGB 16.4 g/dL 13.5-1 8.0 Not Available [facility] [address] [facility] 1, [place], [address], 06/26/2024 15:53:00 06/26/2006/26/2024 CBC HCT 47.4 % 35.0-6 0.0 Not Available [facility] [address] [facility] 1, [place], [address], 06/26/2024 15:53:00 06/26/20 24 06/26/2024 CBC MCV 88.9 fL 80.0-9 9.9 Not Available [facility] [address] [facility] 1, [place], [address], 06/26/2024 15:53:00 06/26/20 24 06/26/2024 CBC MCH 30.7 pg 27.0-3 2.0 Not Available [facility] [address] [facility], [place], [address], 06/26/2024 15:53:00 06/26/20 24 06/26/2024 CBC MCHC 34.5 g/dL 32.0-3 6.0 Not Available [facility] [address] [facility] 1, [place], [address], 06/26/2024 15:53:00 06/26/20 24 06/26/2024 CBC RDW 13.4 % 11.5-1 4.5 Not Available [facility] [address] [facility] 1, [place], [address], 06/26/2024 15:53:00 06/26/20 24 06/26/2024 CBC plt 247.1 x10 150.0- 451.0 Not Available [facility] [address] [facility] 1, [place], [address], 06/26/2024 15:53:00 06/26/20 24 06/26/2024 CBC lymphocytes % 9.5 % 20.0-5 0.0 low Not Available [facility] [address] [facility] 1, [place], [address], 06/26/2024 15:53:00 06/26/20 24 06/26/2024 CBC granulcytes % 82.0 % 30.0-7 0.0 high Not Available [facility] [address] [facility] 1, [place], [address], 06/26/2024 15:53:00 06/26/20 24 06/26/2024 CBC monocytes % 6.7 % 2.0-16 .0 Not Available [facility] [address] [facility] 1, [place], [address], 06/26/2024 15:53:00 06/26/20 24 06/26/2024 CBC granulcytes# 11.8 x10 Not Romina ilable [facility] [address] [facility] 1, [place], [address], 06/26/2024 15:53:00 06/26/20 24 06/26/2024 CBC lymphocytes # 1.4 x10 Not Available [facility] [address] [facility] [address] [address], [place], [address], 06/26/2024 15:53:00 06/26/20 24 06/26/2024 CBC monocytes # 1.0 x10 Not Avai lable [facility] [address] [address], [place], [address], 06/26/2024 15:53:00 06/26/20 24 06/26/2024 CMP (MALE ) glucose 112.0 mg/dL 60.0-9 9.0 high Not Available [facility] [address] [facility], [place], [address], 06/26/2024 16:32:29 06/26/20 24 06/26/2024 CMP (MALE ) BUN (blood urea nitrogen) 14.0 mg/dL 10.0-2 6.0 Not Available [facility] [address] [facility] [place] [facility] 1, [place], [address], 06/26/2024 16:32:29 06/26/20 24 06/26/2024 CMP (MALE ) creatinine (serum) 1.0 mg/dL 0.4-1. 5 Not Available [facility] [address] [facility] 1, [place], [address], 06/26/2024 16:32:29 06/26/20 24 06/26/2024 CMP (MALE ) BUN/creatini ne ratio 14.29 ratio Not Available [facility] [address] [facility] 1, [place], [address], 06/26/2024 16:32:29 06/26/20 24 06/26/2024 CMP (MALE ) eGFR calculated 82.9 Not Available [facility] [address] [facility], [place], [address], 06/26/2024 16:32:29 06/26/20 24 06/26/2024 CMP (MALE ) total protein 7.0 g/dL 6.0-8. 5 Not Available [facility] [address] [facility], [place], [address], 06/26/2024 16:32:29 06/26/20 24 06/26/2024 CMP (MALE ) total bilirubin 0.4 mg/dL 0.2-1. 3 Not Available [facility] [address] [facility], [place], [address], 06/26/2024 16:32:29 06/26/20 24 06/26/2024 CMP (MALE ) albumin 4.2 g/dL 3.5-5. 5 Not Available [facility] [address] [facility] [place] [facility] 1, [place], [address], 06/26/2024 16:32:29 06/26/20 24 06/26/2024 CMP (MALE ) globulin 2.8 calc Not Available [facility] [address] [facility] [place] [facility] 1, [place], [address], 06/26/2024 16:32:29 06/26/20 24 06/26/2024 CMP (MALE ) AST (SGOT) 25.0 U/L 0.0-46 .0 Not Available [facility] [address] [facility], [place], [address], 06/26/2024 16:32:29 06/26/20 24 06/26/2024 CMP (MALE ) altv (SGPT) 20.0 U/L 13.0-6 9.0 normal Not Available [facility] [address] [facility], [place], [address], 06/26/2024 16:32:29 06/26/20 24 06/26/2024 CMP (MALE ) A/G ratio 1.5 ratio Not Available [facility] [address] [facility], [place], [address], 06/26/2024 16:32:29 06/26/20 24 06/26/2024 CMP (MALE ) ALP phos 114.0 U/L 30.0-1 40.0 normal Not Available [facility] [address] [facility], [place], [address], 06/26/2024 16:32:29 06/26/20 24 06/26/2024 CMP (MALE ) calcium 9.1 mg/dL 8.4-10 .5 Not Available [facility] [address] [facility], [place], [address], 06/26/2024 16:32:29 06/26/20 24 06/26/2024 CMP (MALE ) sodium 141.0 mmol/ L 136.0- 145.0 Not Available [facility] [address] [facility], [place], [address], 06/26/2024 16:32:29 06/26/20 24 06/26/2024 CMP (MALE ) potassium 3.7 mmol/ L 3.5-5. 1 Not Available [facility] [address] [facility] [address] [address], [place], [address], 06/26/2024 16:32:29 06/26/20 24 06/26/2024 CMP (MALE ) chloride 109.0 mmol/ L 98.0-1 10.0 normal Not Available [facility] [address] [facility], [place], [address], 06/26/2024 16:32:29 06/26/20 24 06/26/2024 CMP (MALE ) C02 26.0 mmol/ L 22.0-3 1.0 Not Available [facility] [address] [facility], [place], [address], 06/26/2024 16:32:29 06/26/20 24 06/26/2024 CMP (MALE ) anion gap 6.0 calc Not Available [facility] [address] [facility] [address], [place], [address], 06/26/2024 16:32:29 06/26/20 24 06/26/2024 CMP (MALE ) osmolality 292.3 calc Not Available [facility] [address] [facility] [address], [place], [address], 06/26/2024 16:32:29 06/26/20 24 06/27/2024 VITAM IN B12 vitamin B12 432 pg/mL 200-11 00 normal Not Available [employer] [facility] [address] [place], [address], 06/27/2024 07:10:57 06/26/20 24 06/27/2024 VITAM IN D,25- OH,TO WHITLEY,I A vitamin D,25-oh,tota l,ia 53 NG/mL 30-100 normal Vitam in D Statu s 25-OH Vitam in D: Defic iency : <20 ng/mL Insuf ficie ncy: 20 - 29 ng/mL Optim al: > or = 30 ng/mL For 25-OH Vitam in D testi ng on patie nts on D2-daniel pplem entat ion and patie nts for whom quant itati on of D2 and D3 fract ions is requi red, the [employer] Assur eD(TM ) 25-OH VIT D, (D2,D 3), LC/MS /MS is recom zulay d: order code 53817 (kathy ents >2yrs ). See Note 1 Note 1 For addit ional infor donell giang refer to http: //[facility] al[facility]so page.Jones stDia gnost ics.c om/fa q/FAQ 199 (This link is being provi ded for infor nikolai rondon/ educa phillip l purpo ses only. ) Not Available [facility] [address] [place], [address], 06/27/2024 07:10:57 09/11/20 24 09/11/2024 rapid strep group A, throa t Strep negati ve Not Available [facility] ([facility]) [address] [place] [address], [address], 09/11/2024 08:43:00 01/24/20 25 01/23/2025 rapid flu (A+B) , PCR Influenza A negati ve Not Available [facility] ([facility]) [address] [place] [address], [address], 01/23/2025 09:51:10 01/24/20 25 01/23/2025 rapid flu (A+B) , PCR Influenza B negati ve Not Available [facility] ([facility]) [address] [place] [address], [address], 01/23/2025 09:51:10 01/24/20 25 01/23/2025 SARS CoV 2 RNA, QL, nasop haryn x COVID negati ve Not Available [facility] ([facility]) [address] [place] [address], [address], 01/23/2025 09:52:18 02/14/20 25 02/13/2025 CBC WBC 8.3 x10 4.5-10 .5 Not Available [facility] [address] [facility] 1, [place], [address], 02/13/2025 12:35:07 02/14/20 25 02/13/2025 CBC RBC 5.34 x10 4.30-5 .90 Not Available [facility] [address] [facility], [place], [address], 02/13/2025 12:35:07 02/14/20 25 02/13/2025 CBC HGB 15.8 g/dL 13.5-1 8.0 Not Available [facility] [address] [facility], [place], [address], 02/13/2025 12:35:07 02/14/20 25 02/13/2025 CBC HCT 47.5 % 35.0-6 0.0 Not Available [facility] [address] [facility] 1, [place], [address], 02/13/2025 12:35:07 02/14/20 25 02/13/2025 CBC MCV 89.0 fL 80.0-9 9.9 Not Available [facility] [address] [facility] 1, [place], [address], 02/13/2025 12:35:07 02/14/2002/13/2025 CBC MCH 29.6 pg 27.0-3 2.0 Not Available [facility] [address] [facility] 1, [place], [address], 02/13/2025 12:35:07 02/14/20 25 02/13/2025 CBC MCHC 33.3 g/dL 32.0-3 6.0 Not Available [facility] [address] [facility], [place], [address], 02/13/2025 12:35:07 02/14/20 25 02/13/2025 CBC RDW 14.1 % 11.5-1 4.5 Not Available [facility] [address] [facility] 1, [place], [address], 02/13/2025 12:35:07 02/14/20 25 02/13/2025 CBC plt 248.1 x10 150.0- 451.0 Not Available [facility] [address] [facility] [address], [place], [address], 02/13/2025 12:35:07 02/14/20 25 02/13/2025 CBC lymphocytes % 16.0 % 20.0-5 0.0 low Not Available [facility] [address] [facility] [address], [place], [address], 02/13/2025 12:35:07 02/14/20 25 02/13/2025 CBC granulcytes % 75.0 % 30.0-7 0.0 high Not Available [facility] [address] [facility] [address], [place], [address], 02/13/2025 12:35:07 02/14/20 25 02/13/2025 CBC monocytes % 7.1 % 2.0-16 .0 Not Available [facility] [address] [facility] [address], [place], [address], 02/13/2025 12:35:07 02/14/20 25 02/13/2025 CBC granulcytes# 6.2 x10 Not Romina ilable [facility] [address] [facility] [address], [place], [address], 02/13/2025 12:35:07 02/14/20 25 02/13/2025 CBC lymphocytes # 1.3 x10 Not Available [facility] [address] [facility] [address], [place], [address], 02/13/2025 12:35:07 02/14/20 25 02/13/2025 CBC monocytes # 0.6 x10 Not Avai labjuliana [facility] [address] [facility] [address], [place], [address], 02/13/2025 12:35:07 02/14/20 25 02/13/2025 CMP (MALE ) glucose 97.0 mg/dL 60.0-9 9.0 Not Available [facility] [address] [facility] [address], [place], [address], 02/13/2025 13:45:05 02/14/20 25 02/13/2025 CMP (MALE ) BUN (blood urea nitrogen) 14.0 mg/dL 10.0-2 6.0 Not Available [address] [address], [place], [address], 02/13/2025 13:45:05 02/14/20 25 02/13/2025 CMP (MALE ) creatinine (serum) 0.9 mg/dL 0.4-1. 5 Not Available [address] [address], [place], [address], 02/13/2025 13:45:05 02/14/20 25 02/13/2025 CMP (MALE ) BUN/creatini ne ratio 15.56 ratio Not Available [place] [address] [address], [place], [address], 02/13/2025 13:45:05 02/14/20 25 02/13/2025 CMP (MALE ) eGFR calculated 91.2 Not Available [facility] [address] [address], [place], [address], 02/13/2025 13:45:05 02/14/20 25 02/13/2025 CMP (MALE ) total protein 7.0 g/dL 6.0-8. 5 Not Available [facility] [address] [facility] [address], [place], [address], 02/13/2025 13:45:05 02/14/20 25 02/13/2025 CMP (MALE ) total bilirubin 0.4 mg/dL 0.2-1. 3 Not Available [facility] [address] [facility] [address], [place], [address], 02/13/2025 13:45:05 02/14/20 25 02/13/2025 CMP (MALE ) albumin 4.3 g/dL 3.5-5. 5 Not Available [facility] [address] [facility] [address], [place], [address], 02/13/2025 13:45:05 02/14/20 25 02/13/2025 CMP (MALE ) globulin 2.7 calc Not Available [facility] [address] [address], [place], [address], 02/13/2025 13:45:05 02/14/20 25 02/13/2025 CMP (MALE ) AST (SGOT) 23.0 U/L 0.0-46 .0 Not Available [facility] [address] [address], [place], [address], 02/13/2025 13:45:05 02/14/20 25 02/13/2025 CMP (MALE ) altv (SGPT) 19.0 U/L 13.0-6 9.0 normal Not Available [facility] [address] [facility] [address], [place], [address], 02/13/2025 13:45:05 02/14/20 25 02/13/2025 CMP (MALE ) A/G ratio 1.6 ratio Not Available [facility] [address] [address], [place], [address], 02/13/2025 13:45:05 02/14/20 25 02/13/2025 CMP (MALE ) ALP phos 122.0 U/L 30.0-1 40.0 normal Not Available [facility] [address] [facility] [address], [place], [address], 02/13/2025 13:45:05 02/14/20 25 02/13/2025 CMP (MALE ) calcium 9.4 mg/dL 8.4-10 .5 Not Available [facility] [address] [facility] [address], [place], [address], 02/13/2025 13:45:05 02/14/20 25 02/13/2025 CMP (MALE ) sodium 141.0 mmol/ L 136.0- 145.0 Not Available [facility] [address] [facility] [address], [place], [address], 02/13/2025 13:45:05 02/14/20 25 02/13/2025 CMP (MALE ) potassium 4.2 mmol/ L 3.5-5. 1 Not Available [facility] [address] [facility] [address], [place], [address], 02/13/2025 13:45:05 02/14/20 25 02/13/2025 CMP (MALE ) chloride 108.0 mmol/ L 98.0-1 10.0 normal Not Available [facility] [address] [facility] [address], [place], [address], 02/13/2025 13:45:05 02/14/20 25 02/13/2025 CMP (MALE ) C02 23.0 mmol/ L 22.0-3 1.0 Not Available [facility] [address] [facility] [address], [place], [address], 02/13/2025 13:45:05 02/14/20 25 02/13/2025 CMP (MALE ) anion gap 10.0 calc Not Available [facility] [address] [facility] [address], [place], [address], 02/13/2025 13:45:05 02/14/20 25 02/13/2025 CMP (MALE ) osmolality 291.5 calc Not Available [facility] [address] [facility], [place], [address], 02/13/2025 13:45:05 02/14/20 25 02/13/2025 LIPID PROFI LE (MALE ) cholesterol 230.0 mg/dL 0.0-20 0.0 high Not Available [facility] [address] [facility] [address], [place], [address], 02/13/2025 13:45:08 02/14/20 25 02/13/2025 LIPID PROFI LE (MALE ) trig 136.0 mg/dL 0.0-15 0.0 Not Available [facility] [address] [facility], [place], [address], 02/13/2025 13:45:08 02/14/20 25 02/13/2025 LIPID PROFI LE (MALE ) HDL - direct 53.0 mg/dL >40.0 Not Available [facility] [address] [facility] [address], [place], [address], 02/13/2025 13:45:08 02/14/20 25 02/13/2025 LIPID PROFI LE (MALE ) VLDL - direct 27.2 mg/dL Not Available [facility] [address] [facility] [address], [place], [address], 02/13/2025 13:45:08 02/14/20 25 02/13/2025 LIPID PROFI LE (MALE ) LDL - direct 149.8 mg/dL 0.0-13 0.0 high Not Available [facility] [address] [facility] [address], [place], [address], 02/13/2025 13:45:08 Result Notes None recorded. Problems Name Problem SNOMED Code Status Onset Date Resolution Date Notes Provider Name and Address Organization Details Recorded Time History of anxiety state 354453250 Active 2022 anxiety/d epression ; 3 11:46AM by Kaelyn Donovan, Office Visit; Promoted; acuity set as *; Not Available [facility] 3 03:07:34 History of surgery 110182817 Active 2022 Right Shoulder Surgery; 3 11:46AM by Kaelyn Donovan, Office Visit; Promoted; acuity set as *; Not Available [facility] 3 03:07:34 Angina control 633274317 Active 2022 angina; unstable; 3 11:46AM by Kaelyn Donovan, Office Visit; Promoted; acuity set as *; Not Available [facility] 3 03:07:34 Peptic ulcer 19709553 Active 2022 PUD; 3 11:46AM by Kaelyn Donovan, Office Visit; Promoted; acuity set as *; Not Available [facility] 3 03:07:34 Psoriasis 0955715 Active 2022 Psoriasis ; 3 11:46AM by Kaelyn Donovan, Office Visit; Promoted; acuity set as *; Deb Giraldo, DO [address] [place] [address], [address] , [facility] 5 10:54:18 Appendect yane Active 2022 Appendect yane; 3 11:46AM by Kaelyn Donovan, Office Visit; Promoted; acuity set as *; Not Available [facility] 3 03:07:35 Seroposit racquel rheumatoi d arthritis 212987061 Active 2022 Seroposit racquel rheumatoi d arthritis ; 3 11:46AM by Kaelyn Donovan, Office Visit; Promoted; acuity set as *; Not Available [facility] 3 03:07:35 Vasectomy Active 2022 Vasectomy ; 3 11:46AM by Kaelyn Donovan, Office Visit; Promoted; acuity set as *; Not Available [facility] 3 03:07:35 Osteoarth ritis of shoulder region 03024898 Active 2022 Deb Giraldo [address], [address] [place] [address] , [facility] 5 10:54:18 Aortic valve stenosis 75668818 Active 2022 Deb Giraldo [address] , [facility] 5 10:54:18 Malaise and fatigue 810673657 Active 2022 Deb Giraldo [address] , [facility] 3 16:17:53 Coronary arteriosc lerosis 85778307 Active 2022 Deb Giraldo [address] , [facility] 5 10:54:18 Rheumatoi d arthritis 10124137 Active 2022 Deb Giraldo [address] , [facility] 5 10:54:18 Fatigue 96228143 Active 2022 Deb Giraldo [place] [address] , [facility] 3 16:17:58 Vitamin B12 deficienc y (non anemic) 65995446 Active 2022 Deb Giraldo [address], [address] , [facility] 5 10:54:18 Leukocyto sis 621738501 Active 2022 Deb Giraldo, [address], [address] , [facility] 5 10:54:18 Essential hypertens ion 87487681 Active 2022 Deb Giraldo, [address], [address] , [facility] 5 10:54:18 Obstructi ve sleep apnea syndrome 23612632 Active 2022 Deb Giraldo, [address], [address] , [facility] 5 10:54:18 COVID-19 219856764 Active 2022 Deb Giraldo [address], [address] , [facility] 3 14:07:58 Tear of medial meniscus of knee 080383613 Active 2022 Deb Giraldo [address], [address] , [facility] 3 12:52:42 Acute pain of joint of knee 96668115301 9104 Active 2022 Deb Giraldo [address], [address] , [facility] 3 12:52:43 Pain of left shoulder joint 84180990723 165429 Active 2023 Deb Giraldo [address], [address] , [facility], [place] 4 08:20:25 Nasal congestio n 95942058 Active 2024 Ed Minaya MD [address] [place] [address], [address] , [facility], Oscar 17:42:15 Acute maxillary sinusitis 16375630 Active 2024 Ed Minaya MD [address] [place] [address], [address] , [facility], Oscar 17:42:15 Problem Notes None recorded. Procedures Surgical History Date Name Laterality Status Provider Name and Address Organization Details Recorded Time 11/11/20 24 total replacement of left hip joint completed ROGELIO VIZCAINO [facility], [place] 02/13/2025 10:41:59 06/26/20 24 Joint Inj Kenalog- Shoulder, Hip, Knee completed Eladio Tatum [facility], VictorinaLGiselleCGiselle 06/26/2024 14:49:45 08/03/20 23 Joint Inj Kenalog- Shoulder, Hip, Knee completed Deb Giraldo DO [address] [place] [address], [phone], [facility], [place] 08/03/2023 12:53:08 02/29/20 23 Arthrocentesis Major Joint/Bursa completed Deb Giraldo DO [address] [place] [address], [phone], [facility], LGiselleLJovan 02/28/2023 16:20:44 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 Procedure Notes None recorded. Medical Equipment None Reported. Allergies Allergen ID Allergen Name Allergen Category Reaction Reaction Severity Criticality Documentation Date Start Date Code Code System Note Provider Name and Address Organization Details Recorded Time 29817 Silvadene medicatio n rash Not available Not available 06/17/2023 48609 6 RxNorm React ion: Rash; Comme nt: Recor ded 12/26 11:46 AM by Ángela Kumar n, Offic e Visit ; Promo finn; Vishnu dick ce: *; ; Not Available [facility] 3 02:26:36 82603 methotrex ate medicatio n other Not available Not available 06/17/2023 6851 RxNorm React ion: Trans karen tis; Comme nt: Recor ded 12/26 11:46 AM by Ángela Kumar n, Offic e Visit ; Paula dick ce: *; ; Not Available [facility] 3 02:26:36 Medications Name Sig Start Date Stop Date Status Note LastModified by Organization Details LastModified Time losartan 50 mg tablet TAKE 1 TABLET BY MOUTH DAILY 02/28 completed Not Available Not Available Not Available amoxicill in 500 mg capsule TAKE ONE CAPSULE BY MOUTH THREE TIMES DAILY UNTIL GONE 06/10 completed Not Available Not Available Not Available atorvasta tin 40 mg tablet TAKE 1 TABLET BY MOUTH EVERY DAY IN THE EVENING active Not Available Not Available No t Available prednison e 10 mg tablet TAKE 1 TABLET BY MOUTH DAILY FOR JOINT PAIN 06/10 completed Not Available Not Available Not Available Eye Wash (boric acid) eye wash solution daily 06/10 completed 0; Recorded 12/26/19 23 11:46AM by Kaelyn Donovan, Office Visit; Not Available Not Available Not Available tizanidin e 4 mg tablet TAKE 1 TABLET BY MOUTH TWICE A DAY active Not Available Not Available No t Available hydrocodo ne 5 mg-acetam inophen 325 mg tablet TAKE 1 TABLET BY MOUTH EVERY 6 HOURS FOR 7 DAYS NEEDED 02/13 completed Not Available Not Available Not Available meloxicam 15 mg tablet TAKE 1 TABLET BY MOUTH EVERY DAY NEEDED 02/13 completed Not Available Not Available Not Available prednison e 20 mg tablet TAKE 1 TABLET BY MOUTH DAILY FOR 3 TO 7 DAYS NEEDED FOR JOINT PAIN OR FLARE OR ARTHRITI S 02/13 completed Not Available Not Available Not Available prednison e 5 mg tablet TAKE 1 TABLET BY MOUTH DAILY active Not Available Not Available No t Available tramadol 50 mg tablet TAKE 1 TABLET EVERY 6 HOURS NEEDED PAIN active Not Available Not Available No t Available sildenafi l 100 mg tablet TAKE 1 TABLET BY MOUTH ONCE DAILY 1 TO 4 HOURS PRIOR TO DESIRED AFFECT 06/26 completed Not Available Not Available Not Available amoxicill in 500 mg tablet TAKE ALL FOUR ONE HOUR BEFORE APPOINTM ENT active Not Available Not Available No t Available pantopraz ole 20 mg tablet,de layed release TAKE 2 TABLETS BY MOUTH TWICE DAILY 02/28 completed Not Available Not Available Not Available Kenalog 40 mg/mL suspensio n for injection Take 40 mg by injectio n route. 02/13 completed Not Available Not Available Not Available cefadroxi l 500 mg capsule TAKE ONE CAPSULE BY MOUTH TWICE DAILY FOR 14 DAYS 02/13 completed Not Available Not Available Not Available amoxicill in 875 mg tablet TAKE 1 TABLET BY MOUTH TWICE DAILY TIL GONE 04/25 completed Not Available Not Available Not Available hydrocodo ne 7.5 mg-acetam inophen 325 mg tablet TAKE 1 TABLET BY MOUTH EVERY 4 HOURS NEEDED FOR PAIN active Not Available Not Available No t Available prednison e 2.5 mg tablet Take 1 tablet every day by oral route. active Not Available Not Available No t Available pantopraz ole 40 mg tablet,de layed release TAKE 1 TABLET BY MOUTH TWICE DAILY active Not Available Not Available No t Available valsartan 320 mg tablet TAKE 1 TABLET BY MOUTH EVERY DAY. 06/26 completed Not Available Not Available Not Available oxycodone -acetamin ophen 7.5 mg-325 mg tablet TAKE 1 TABLET BY MOUTH EVERY 6 HOURS NEEDED FOR 7 DAYS active Not Available Not Available No t Available losartan 100 mg tablet TAKE 1 TABLET BY MOUTH EVERY DAY 2024 active Not Available Not Available Not Avai lable amoxicill in 875 mg-potass ium clavulana te 125 mg tablet TAKE 1 TABLET BY MOUTH EVERY 12 HOURS FOR 7 DAYS 02/13 completed Not Available Not Available Not Available oxycodone 5 mg tablet TAKE 1 TABLET BY MOUTH TWICE A DAY NEEDED 02/28 completed Not Available Not Available Not Available chlorhexi dine gluconate 0.12 % mouthwash RINSE WITH ONE FULL FOR 30 SECONDS TWICE DAILY 06/10 completed Not Available Not Available Not Available Vitamin D3 daily active Not Available Not Available Not Available Baby Aspirin active Not Available Not Available Not Available Glucosami ne-Chondr oitin Complx active Not Available Not Available Not Available Orencia (with maltose) 250 mg intraveno us solution 06/10 completed Not Available Not Available Not Available diclofena c 1 % topical gel APPLY 2 GRAMS TOPICALL Y TO THE AFFECTED AREA FOUR TIMES DAILY NEEDED 2023 active Not Available Not Available Not Avai lable Eliquis 2.5 mg tablet TAKE 1 TABLET BY MOUTH TWICE DAILY FOR 30 DAYS 02/13 completed Not Available Not Available Not Available Orencia ClickJect 125 mg/mL subcutane ous auto-inje ctor Inject 1 mL every week by subcutan eous route for 30 days. 2022 active Not Available Not Available Not Avai lable Paxlovid 300 mg (150 mg x 2)-100 mg tablets in a dose pack TAKE 1 DOSE PK TWICE A DAY BY ORAL ROUTE DIRECTED . 06/10 completed Not Available Not Available Not Available PreserVis ion AREDS 2 Plus MV active Not Available Not Available No t Available Vitals Date Recorded Body height Body mass index (BMI) Body weight Respiratory rate Oxygen saturation Oxygen saturation in Arterial blood by Pulse oximetry Heart rate Body temperature Systolic And Diastolic Provider Name and Address Organization Details Last Updated DateTime 5 182.88 cm 25.1 kg/m2 90119.9 9 g 18 /min 99 % 99 % 84 /min 98.4 [degF] 142/78 mm[Hg] KAELYN SNYDER [facility], .L.CGiselle 5 09:42:54 Date Recorded Body height Oxygen saturation Oxygen saturation in Arterial blood by Pulse oximetry Heart rate Respiratory rate Body mass index (BMI) Body weight Systolic And Diastolic Provider Name and Address Organization Details Last Updated DateTime 5 182.88 cm 97 % 97 % 86 /min 18 /min 25.5 kg/m2 61505.7 7 g 124/68 mm[Hg] ROGELIO VIZCAINO [facility] 5 10:46:11 Date Recorded Body height Body mass index (BMI) Body weight Oxygen saturation Oxygen saturation in Arterial blood by Pulse oximetry Heart rate Respiratory rate Systolic And Diastolic Provider Name and Address Organization Details Last Updated DateTime 4 182.88 cm 24.9 kg/m2 26882.8 g 97 % 97 % 78 /min 18 /min 136/70 mm[Hg] [facility] 4 14:08:46 Date Recorded Body height Body mass index (BMI) Body weight Oxygen saturation Oxygen saturation in Arterial blood by Pulse oximetry Heart rate Respiratory rate Systolic And Diastolic Provider Name and Address Organization Details Last Updated DateTime 4 182.88 cm 25 kg/m2 10352.1 g 98 % 98 % 64 /min 20 /min 130/72 mm[Hg] [facility] 4 11:47:49 Date Recorded Body height Body mass index (BMI) Body weight Oxygen saturation Oxygen saturation in Arterial blood by Pulse oximetry Heart rate Body temperature Systolic And Diastolic Provider Name and Address Organization Details Last Updated DateTime 4 182.88 cm 25.2 kg/m2 34052.1 8 g 99 % 99 % 88 /min 98.1 [degF] 138/84 mm[Hg] Nimesh Benitez [facility] 4 08:29:25 Social History None recorded. Functional Status Question Answer Note LastModified by Organizat ion Details LastModified Time Do you use any illicit or recreational drugs? No Information not available 02/28/2023 Do you or have you ever used any other forms of tobacco or nicotine? No [email or web address] Information not available 02/28/2023 What is your level of alcohol consumption? None [email or web address] Information not available 02/28/2023 Mental Status None recorded. Family History Nothing Reported. Medical History No medical history recorded. Immunizations Vaccine Type Date Status Note Provider Nam agustín and Address Organization Details Recorded Time Td(adult) unspecified formulation 2 completed Not Available [facility] 06/17/2023 02:38:32 Past Encounters Encounter ID Performer Location Encounter Start Date Encounter Closed Date Diagnosis/Indication Diagnosis SNOMED-CT Code Diagnosis ICD10 Code Diagnosis IMO Codes Diagnosis Note [id number] Deb Giraldo DO [facility] ([facility] [address]) [address] [place] [address] 02/28/2023 15:25:14 03/06/2023 15:03:56 Pain of right shoulder joint 4257691458 1617393 M25.511 Fatigue 86008431 R53.83 Osteoarthr itis of shoulder region 65936564 M19.019 injection today due to worsening pain and decreased ROM. counseled Aortic valve stenosis 60 075268 I35.0 chronic, no ECHO in more than 2 years, now with signs and symptoms, will get ECHO. counseled Malaise and fatigue 2717 32483 R53.81 Coronary arteriosclerosis 97147426 I25.10 has had 2 angiograms in [facility], told he needed stents, but then later that he didn't.con digital marketing associate repeat angiogram pending workup Rheumatoid arthritis 698 41079 M06.9 [id number] Deb Giraldo DO [facility] ([facility] [address]) [address] [place] [address] 04/05/2023 09:59:25 04/05/2023 13:04:20 Osteoarthritis of shoulder region 64113622 M19.019 injection last vist really improved pain and ROM Aortic valve stenosis 60 837660 I35.0 hx of per pt HX. we obtained ECHO in february 2023 that does not show any valvular issues with normal EF. Therefore, no . Coronary arteriosclerosis 65074609 I25.10 has had 2 angiograms in [facility], told he needed stents, but then later that he didn't.con digital marketing associate repeat angiogram pending workup Essential hypertension 49143014 I10 stable. continue valsart Leukocytosis 030656058 D 72.829 reviewed labs with pt. he had tooth abscess at time of labs. will repeat labs in 2 wks with phone f/u Vitamin B1 2 deficiency (non anemic) 17499281 E53.8 labs 03/2023 with b12 193. pt to start OTC daily B complex. repeat labs in 6-8 wks. Obstructiv e sleep apnea syndrome 55923614 G47.33 concern for. pt with persistent fatgue, daytime sleepiness , snoring, cardiology work up ok. will get sleep study. counseled on sleep hygeine, daily exericse, and weight managemnt. Rheumatoid arthritis 698 11131 M06.9 continue care with Rheumatcortney gy. [id number] Deb Giraldo DO [facility] ([facility]) [address] [place] [address] 04/25/2023 12:36:05 04/25/2023 17:02:26 Nasal congestion 58899624 R09.81 COVID-19 097030208 U07.1 COVID positive today. f/u A/B both negative.I counseled the patient on diagnosis, treatment options, medication s, and expectatio ns. All questions were addressed. we will start paxolvid and prednisone . due to high risk with RA meds.Pt is to stay home and isolate for at least 5 days from when symptoms started, and then mask in public for an additional 5 days.They were instructed to call the office or come in for Follow Up with any questions, concerns, or worsening problems. Rheumatoid arthritis 698 30569 M06.9 continue care with Rheumatolo gy. [id number] Deb Giraldo DO [facility] ([facility]) [address] [place] [address] 08/03/2023 12:39:04 08/03/2023 13:06:05 Acute pain of joint of knee 8119107594 62260 M25.569 Tear of me dial meniscus of knee 206534423 S83.241A Concern for per history and exam today. Counseled patient on work-up of options and treatment options. He wishes to proceed with injection today and will monitor. Consider x-ray if no improvemen t in a week. [id number] Deb Giraldo DO [facility] ([facility]) [address] [place] [address] 09/22/2023 11:32:51 09/25/2023 09:30:36 Pre-surgery evaluation 146104561 Z01.016 [id number] CHRISTINE GAVIN PA-C [facility] ([facility]) [address] [place] [address] 11/10/2023 10:42:11 11/10/2023 14:13:31 Viral screening 092620937 Z11.52 neg covid Exposure t o SARS-CoV-2 610253252 Z20.822 positive today. he is starting symtpoms. [id number] Deb Giraldo DO [facility] ([facility]) [address] [place] [address] 06/26/2024 14:00:22 06/26/2024 16:20:42 Rheumatoid arthritis 95157726 M06.9 continue care with Rheumatolo gy. Vitamin B1 2 deficiency (non anemic) 72731231 E53.8 labs 03/2023 with b12 193. pt to start OTC daily B complex. repeat labs in 6-8 wks. Essential hypertension 02473202 I10 06/26/24- Stopped Valsartan on his own after significan t weightloss and BP running too low. Now taking Losartan 100mg daily. Lab today. F/u 3 weeks. Pain of le ft shoulder joint 0094384568 7890622 M25.512 I counseled pt on DX and treatment options. Pt desires to proceed with Joint injection today. Performed as documented . Pt tolerated well. counseled on limiting activity the next 24 hrs. return if problems. [id number] Deb Giraldo DO [facility] ([facility]) [address] [place] [address] 07/17/2024 10:45:43 07/17/2024 17:46:47 Essential hypertension 63599787 I10 07/17/24- Improved, tolerating Losartan 100mg daily, continue to monitor and keep a log, if increasing consider changing Losartan.- Stopped Valsartan on his own after significan t weightloss and BP running too low. Now taking Losartan 100mg daily. Lab today. F/u 3 weeks. [id number] WILLIAMS LUCAS [facility] ([facility]) [address] [place] [address] 09/11/2024 08:20:41 09/11/2024 14:24:48 Sore throat 567054636 J02.9 Acute pansinusitis 60248 02 J01.40 Discussed use of antibiotic . Take with food.May use Harley's nasal inserts and also apply on chest. Push oral fluids. Consider nasal saline rinses and otc decongesta nt.Use tylenol/mo mickey for hernandez. [id number] Ed Minaya MD [facility] ([facility]) [address] [place] [address] 01/23/2025 09:36:58 01/23/2025 11:14:29 Nasal congestion 29885896 R09.81 COVID and flu are negative Acute maxi llary sinusitis 42432731 J01.00 Likely bacterial sinusitis based on exam and history. discussed supportive care including OTC meds and sinus rinses. we will start abx. [id number] Deb Giraldo DO [facility] ([facility]) [address] [place] [address] 02/13/2025 09:51:03 02/14/2025 08:08:19 Aortic valve stenosis 59818967 I35.0 hx of per pt HX. we obtained ECHO in february 2023 that does not show any valvular issues with normal EF. Therefore, no . Essential hypertension 75554455 I10 02/13/25: stable. continue losartan.- Improved, tolerating Losartan 100mg daily, continue to monitor and keep a log, if increasing consider changing Losartan.- Stopped Valsartan on his own after significan t weightloss and BP running too low. Now taking Losartan 100mg daily. Lab today. F/u 3 weeks. Rheumatoid arthritis 698 95467 M06.9 continue care with Rheumatcortney pickering. Health Concerns Section Related Observation LastModified by Organization Detai ls LastModified Time None Recorded Concern Status LastModified by Organization Details LastModified Time None Recorded Advance Directives Directive None Recorded Payers Insurance Date Sequence Insurance Name Policy Number Policy Miller Covered Member ID Miller Member ID Guarantor Name 08/11/2025 [place] - [facility] (MEDICARE) Tai Delgado [id number] 2 Tai Delgado 08/11/2025 1 [place] Tai Delgado [id number] 2 Tai Joyley 08/11/2025 2 [employer] [facility] (MEDICARE SUPPLEMENT) Tai Fowlerwley [id number] Tai Joyley 08/11/2025 2 [place] [employer] F (MEDICARE SUPPLEMENT) [id number] Tai Fowlerwley [id number] Tai Fowlerwley Notes Date Note Type Note Provider Name and Address Organization Details Recorded Time 4 text/htm l ROS as noted in the HPI Pt presents for acute illness, L shoulder pain.Also recheck of chronic illness, HTN. We last injected this left shoulder on 02/28/23, with improvement. He has stopped his Valsartan, d/t BP getting too low, was only up to 103/55 when on it. He was experiencing dizziness, lightheadedness. He had lost a significant amount of weight intentionally, down to 162lb, now back up to 181-183lbs. Now taking Losartan 100mg daily for 2-3 weeks, BP running 140's-160's/ 65/70. No longer experiencing dizzy spells. He continues Prednisone 2.5mg daily, Orencia infusion, Hydrocodone, Meloxicam, Tizanidine, these for his Arthritis.Not using Hydrocodone more than 1-2 tabs daily since getting pain stimulator placed. Last had B12 checked with 03/24/23, at 193, with OZ 05/29/23, at 319. Deb Giraldo, DO [address] [place] [address], [phone], [facility], [place] 07/01/2024 08:20:40 4 text/htm l ROS as noted in the HPI Pt presents for2 week recheck on HTN. Bp running 120-140's/ 70's mostly. Taking Losartan 100mg daily, doing well, tolerating with no s/e denies any headaches or dizziness Left shoulder pain improved after joint injection. Deb Giraldo DO [address] [place], [address], [facility], LTyraC. 07/17/2024 12:08:53 4 text/htm l Upper Respiratory SymptomsReported by PatientUpper Respiratory SymptomsFor quality, patient reportsproductive cough,congested, andnasal discharge. For context, patient reportssick contact. For associated symptoms, patient reportsyellow-green sputum,shortness of breath,difficulty breathing at night,fever,morning cough,sore throat,headache, andmalaise. For location, patient reportshead,chest, andthroat.ROS as noted in the HPI walk in: Pt presents with 2 weeks of runny nose, sinus pressure, sore throat, ear pressure, and coughing. Has taken dayquil/nyquil. Is drinking well. Feels his symptoms worsen in the evening and overnight. PCP: WILLIAMS Damon [address] [place], [address], [facility], LGiselleLJovan 09/11/2024 15:04:07 5 text/htm l Upper Respiratory SymptomsReported by PatientUpper Respiratory SymptomsFor quality, patient reportscongestedandnasal discharge. For associated symptoms, patient reportsfatigue,fever,sore throat,headache, andchills. For location, patient reportsheadandchest. For severity, patient reportsmoderate.ROS as noted in the HPI Patient c/o sinus symptoms. He's been fighting it for a few days. Nasal congestion, drainage, fever and chills, fatigue. He states when he woke up this morning, he feels like it's moved to his chest. He's been treating at home with Sudafed and DayQuil/NyQuil Ed Minaya MD [address] [place], [address], [facility], LGiselleLJaja. 01/26/2025 17:42:32 5 text/htm l ROS as noted in the HPI f/u HTN checking BP daily, running 110-120/60-70. does not have log denies any chest pain, sob, BLE edema Deb Giraldo DO [address] [place] [address], [phone], [place] [facility], [place] 02/13/2025 18:21:28
--- OUTSIDE RECORDS SUMMARY | 2025-10-04 16:42 | XMS_ITS | Encounter Summary ---
Author Organization [facility] Address [address] [place] [address] Care Team Providers Care Permit Review Assistant Name Role Phone Non-Staff, Physician Primary Care Provider Unava ilable Encounter Details Date Type Department Care Team (Latest Contact Info) Description 07/18/2003 Outpatient Historical [facility] General Surgery [address] [address] [address] [place] [phone] [place] [address] [facility] [address] [place] [address] UNCERTAIN BEHAV NEOPL SKIN (Primary Dx) Social History Tobacco Use Types Packs/Day Years Used Date Smoking Tobacco: Never Assessed Sex and Gender Information Value Date Recorded Sex Assigned at Not on file 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
--- OUTSIDE RECORDS SUMMARY | 2025-10-04 16:42 | XMS_ITS | Encounter Summary ---
Author Organization [facility] Address [address] [place] [address] Care Team Providers Care Radiology Aide Name Role Phone Non-Staff, Physician Primary Care Provider Unava ilable Encounter Details Date Type Department Care Team (Latest Contact Info) Description 02/13/2002 Outpatient Historical [facility] Medicine [place] [address] [facility] [address] [place] [address] Tali Lantigua MD NO ADDRESS ON FILE ACUTE SINUSITIS NOS (Primary Dx) Social History Tobacco Use Types Packs/Day Years Used Date Smoking Tobacco: Never Assessed Sex and Gender Information Value Date Recorded Sex Assigned at Not on file 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
--- OUTSIDE RECORDS SUMMARY | 2025-10-04 16:43 | XMS_ITS | Encounter Summary ---
Author Organization [facility] Address [address] [place] [address] Care Team Providers Care Client Finance Analyst Name Role Phone Non-Staff, Physician Primary Care Provider Unava ilable Encounter Details Date Type Department Care Team (Latest Contact Info) Description 07/11/2003 Outpatient Historical [facility] General Surgery [address] [address] [address] [place] [phone] [place] [id number] [facility] [address] [place] [address] UNCERTAIN BEHAV NEOPL SKIN (Primary Dx) Social History Tobacco Use Types Packs/Day Years Used Date Smoking Tobacco: Never Assessed Sex and Gender Information Value Date Recorded Sex Assigned at Not on file 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
--- OUTSIDE RECORDS SUMMARY | 2025-10-04 16:43 | XMS_ITS | Encounter Summary ---
Author Organization [facility] Address [address] [place] [address] Care Team Providers Care Campus Chaplain Name Role Phone Non-Staff, Physician Primary Care Provider Unava ilable Encounter Details Date Type Department Care Team (Latest Contact Info) Description 10/24/2002 Outpatient Historical [facility] Medicine [place] 104 [facility] [address] [place] [address] Tali Lantigua MD NO ADDRESS ON FILE ACUTE SINUSITIS NOS (Primary Dx) Social History Tobacco Use Types Packs/Day Years Used Date Smoking Tobacco: Never Assessed Sex and Gender Information Value Date Recorded Sex Assigned at Not on file 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
--- OUTSIDE RECORDS SUMMARY | 2025-10-04 16:43 | XMS_ITS | Encounter Summary ---
Author Organization [facility] Address [address] [place] [address] Care Team Providers Care Director Of Teacher Education Name Role Phone Non-Staff, Physician Primary Care Provider Unava ilable Encounter Details Date Type Department Care Team (Latest Contact Info) Description 07/18/2003 Outpatient Historical [facility] [facility] [facility] [place] [address] [facility] [place] [phone] [place] [address] [facility] [address] [place] [address] BENIGN ANN MARIE SKIN ARM (Primary Dx) Social History Tobacco Use Types Packs/Day Years Used Date Smoking Tobacco: Never Assessed Sex and Gender Information Value Date Recorded Sex Assigned at Not on file 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
--- OUTSIDE RECORDS SUMMARY | 2025-10-04 16:43 | XMS_ITS | Encounter Summary ---
Author Organization [facility] Address [address] [place] [address] Care Team Providers Care Expressive Music Therapist Name Role Phone Non-Staff, Physician Primary Care Provider Unava ilable Encounter Details Date Type Department Care Team (Latest Contact Info) Description 01/02/2003 Outpatient Historical [facility] Family Medicine [place] 104 [facility] [address] [place] [phone] Tali Lantigua MD NO ADDRESS ON FILE ACUTE PHARYNGITIS (Primary Dx); ACUTE SINUSITIS NOS Social History Tobacco Use Types Packs/Day Years Used Date Smoking Tobacco: Never Assessed Sex and Gender Information Value Date Recorded Sex Assigned at Not on file 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
--- OUTSIDE RECORDS SUMMARY | 2025-10-04 16:44 | XMS_ITS | Encounter Summary ---
Author Organization [facility] Address [address] [place] [address] Care Team Providers Care Tribunal Member Name Role Phone Non-Staff, Physician Primary Care Provider Unava ilable Encounter Details Date Type Department Care Team (Latest Contact Info) Description 08/12/2002 Outpatient Historical [facility] Family Medicine- [place] [address] [place] [address] Tali Lantigua MD NO ADDRESS ON FILE ACUTE SINUSITIS NOS (Primary Dx); ACUTE BRONCHITIS Social History Tobacco Use Types Packs/Day Years Used Date Smoking Tobacco: Never Assessed Sex and Gender Information Value Date Recorded Sex Assigned at Not on file Legal Sex Male 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
--- OUTSIDE RECORDS SUMMARY | 2025-10-04 16:44 | XMS_ITS | Encounter Summary ---
Author Organization [facility] Address [address] [place] [address] Care Team Providers Care Ornamental Metal Worker Helper Name Role Phone Non-Staff, Physician Primary Care Provider Unava ilable Encounter Details Date Type Department Care Team (Latest Contact Info) Description 04/29/2002 Outpatient Historical [facility] Family Medicine [place] 104 [facility] [address] [place] [address] Chucho Aldana MD [address] [address] SHOULDER REGION DIS NEC (Primary Dx) Social History Tobacco Use Types Packs/Day Years Used Date Smoking Tobacco: Never Assessed Sex and Gender Information Value Date Recorded Sex Assigned at Not on file 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
--- OUTSIDE RECORDS SUMMARY | 2025-10-04 16:44 | XMS_ITS | Encounter Summary ---
Author Organization [facility] Address [address] [place] [address] Care Team Providers Care Mechatronics Technologist Name Role Phone Non-Staff, Physician Primary Care Provider Unava ilable Encounter Details Date Type Department Care Team (Latest Contact Info) Description 09/26/2002 Outpatient Historical [facility] Medicine [place] 104 [facility] [address] [place] [phone] Misael Ornelas DO NO ADDRESS ON FILE ACUTE MAXILLARY SINUSITIS (Primary Dx) Social History Tobacco Use Types Packs/Day Years Used Date Smoking Tobacco: Never Assessed Sex and Gender Information Value Date Recorded Sex Assigned at Not on file 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
--- OUTSIDE RECORDS SUMMARY | 2025-10-04 16:44 | XMS_ITS | Encounter Summary ---
Author Organization [facility] Address [address] [place] [address] Care Team Providers Care Collections Professional Name Role Phone Non-Staff, Physician Primary Care Provider Unava ilable Encounter Details Date Type Department Care Team (Latest Contact Info) Description 07/29/2002 Outpatient [facility] [address] [place] [address] Chucho Aldana MD [address] [facility] [address] [place] [address] DERMATITIS OTHER NEC (Primary Dx) Social History Tobacco Use Types Packs/Day Years Used Date Smoking Tobacco: Never Assessed Sex and Gender Information Value Date Recorded Sex Assigned at Not on file 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
--- NOTE | 2025-10-04 16:49 | W.ED.WOUNDLC ---
HPI - Wound/Laceration General: Chief Complaint: Wound/Laceration Stated Complaint: L ear bleeding badly (squriting) Time Seen by Provider: 10/04/25 16:43 History of Present Illness: 58-year-old male presents emergency room complaining of bleeding from his left ear. 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 This caused significant chemical burning of the ear and now he is heading excessive bleeding. When he arrives here the bleeding is stopped he reports at home it was rather excessive he is not on any anticoagulants he does take aspirin daily. Related Data Home Medications ?Medication ?Instructions ?Recorded ?Confirmed aspirin 81 mg tablet,delayed 81 mg PO BID 12/07/19 08/12/25 release (Adult Low Dose Aspirin) glucosamine HCl 1,500 mg tablet 1,500 mg PO ONCE 12/07/19 08/12/25 vitamins A,C,T-izgk-uhbizq 4,296 1 cap PO DAILY 10/27/20 08/12/25 mcg-226 mg-90 mg capsule (ICaps AREDS) vitamin B complex 1 cap PO DAILY 05/29/23 08/12/25 abatacept (with maltose) [Orencia IV 08/31/23 08/12/25 (with maltose)] losartan 100 mg tablet 100 mg PO DAILY 10/07/24 08/12/25 Previous Rx's ?Medication ?Instructions ?Recorded hydrocodone 7.5 mg-acetaminophen 1 tab PO BID PRN pain 30 days #60 11/30/21 325 mg tablet tabs diclofenac sodium 1 % topical gel 2 g topical QID #100 grams 03/31/25 pantoprazole 40 mg tablet,delayed See Rx Instructions .Route 08/12/25 release .COMPLEX #180 tabs prednisone 5 mg tablet 5 mg PO DAILY #90 tabs 08/12/25 prednisone 20 mg tablet See Rx Instructions PO .COMPLEX 08/14/25 PRN joint pain flare #30 tabs mupirocin 2 % topical ointment 1 applic topical BID #22 grams 10/04/25 Allergies Allergy/AdvReac Type Severity Reaction Status Date / Time methotrexate Allergy Severe other Verified 08/12/25 10:42 adhesive Allergy Unknown Verified 08/12/25 10:42 miconazole (From Neosporin Allergy Unknown Verified 08/12/25 10:42 AF) silver sulfadiazine (From Allergy ALGY-Rash Verified 08/12/25 10:42 Silvadene) hydroxychloroquine AdvReac Intermediate tinnitis Verified 08/12/25 10:42 tofacitinib (From Xeljanz) AdvReac gastric Verified 08/12/25 10:42 c/o's and tight feeling in abdomen PFSH ED PFSH: Medical History Plaque psoriasis in remission Chronic steroid use Seropositive rheumatoid arthritis of multiple sites High risk medication use Rheumatoid arthritis with rheumatoid factor Immunization counseling Encounter for long-term use of opiate analgesic Chronic right shoulder pain Cervical disc syndrome Seropositive rheumatoid arthritis Surgical History S/P shoulder surgery RIGHT X7 S/P appendectomy S/P vasectomy Family History Grandfather Leukemia Grandmother Stomach cancer Other Cancer Heart disease Denies family history of Rheumatoid arthritis Diabetes Lupus Hypertension Social History Smoking and tobacco/nicotine status: former use of tobacco/nicotine Quit status (tobacco/nicotine): has quit using Year quit tobacco: 1992 Former quit date comment: smokes cigars occasional Second hand smoke exposure: No Alcohol intake: current Alcohol intake frequency: holidays/special occasions only Alcohol type: wine Substance/Drug Use: never Physical Exam HENMT: OTHER: Significant desquamation with chemical burning from the 5-fluorouracil that was applied to the ear. No active bleeding no bleeding arterials Course Vital Signs: Vital signs: Vital Signs Temperature 98.0 F 10/04/25 16:31 Pulse Rate 65 10/04/25 16:31 Respiratory Rate 17 10/04/25 16:31 Blood Pressure 127/70 10/04/25 16:31 Pulse Oximetry 97 10/04/25 16:31 Oxygen Delivery Me thod Room Air 10/04/25 16:31 MDM - Wound/Laceration Medical Decision Making Dressing applied to the wound with topical antibiotic ointment. Recommend holding the topical medication from dermatology and following up with them next week. Through the weekend apply topical antibiotic ointment and mild pressure dressing this was demonstrated the patient by nursing staff. Return if as for the bleeding. Medical Records I reviewed the patient's medical records. No radiology studies performed this visit Discharge Plan Discharge Patient Disposition: Home Clinical Impression: Medication adverse effect, Bleeding from right ear Condition: Stable Prescriptions: New mupirocin 2 % ointment 1 applic topical BID Qty: 22 0RF No Action aspirin [Adult Low Dose Aspirin] 81 mg tablet,delayed release (DR/EC) 81 mg PO BID glucosamine HCl 1,500 mg tablet 1,500 mg PO ONCE ICaps AREDS [id number] capsule 1 cap PO DAILY hydrocodone-acetaminophen 7.5-325 mg tablet 1 tab PO BID PRN (Reason: pain) 30 Days Qty: 60 0RF Rx Instructions: fill on or after 12/03/21 abatacept (with maltose) [Orencia (with maltose)] IV pantoprazole 40 mg tablet,delayed release (DR/EC) See Rx Instructions .ROUTE .COMPLEX Qty: 180 1RF Dose Instruction: TAKE 1 TABLET BY MOUTH TWICE DAILY Rx Instructions: TAKE 1 TABLET BY MOUTH TWICE DAILY prednisone 5 mg tablet 5 mg PO DAILY Qty: 90 1RF vitamin B complex Capsule 1 cap PO DAILY losartan 100 mg tablet 100 mg PO DAILY diclofenac sodium 1 % gel 2 g topical QID Qty: 100 2RF Rx Instructions: apply to affected area as needed prednisone 20 mg tablet See Rx Instructions PO .COMPLEX PRN (Reason: joint pain flare) Qty: 30 1RF Rx Instructions: take 1 tab daily for 3-7 days as needed for arthritis flare PO PRN; Discharge Orders: Discharge ED (Routine); Ordered 10/04/25 Ordered By: Rajesh Guerra Referrals: Tony Bess DO [Primary Care Provider, Family Practice] Discharge Diet: Usual diet Discharge Activity: Resume usual activity Patient Instructions: Opioid Safety, Pain Management, Patient Portal & [place] Instructions Activity Restrictions/Additional Instructions: Thank you for choosing [facility] for your healthcare needs today. It is very important that you follow up as instructed or that you return to the Emergency Department should you have concerns or if your condition changes or worsens in any way. Emergency department visits are focused on emergent conditions, in some cases you may require further evaluation on an outpatient basis. You were seen in the emergency room with complaints of bleeding from your ear. Would recommend that you pause on using the topical medication that the children's attendant recently gave you. Instead applied the topical antibiotic ointment that was prescribed along with a Telfa pad over the affected area of the ear and apply a light pressure dressing with the wrap you were given. Follow-up with children's attendant on Monday for further advice on how to manage this further. (Please note that included in your discharge packet is information concerning opioid safety and pain management. This information is given to all patients were discharged from the ER regardless of their discharge diagnosis or the medicines they usually take or are prescribed.) Print Language: Burkinan Coding Level of Care Code ED Campus Aide for Mery Delaney
== END 2025-10-04 17:22 | disposition home or self-care (01) ==
PROVIDERS: Emergency Provider Family Medicine; PCP Electrodiagnostic Medicine
DX: H92.22 Otorrhagia, left ear (principal); T49.95XA Adverse effect of unspecified topical agent, initial encounter; X58.XXXA Exposure to other specified factors, initial encounter; Z79.82 Long term (current) use of aspirin; Z87.891 Personal history of nicotine dependence
CPT/HCPCS: 99283; J9999

== ENCOUNTER → 2025-10-06 08:19 | Outpatient (BNVA) | payer MEDICARE, OTHER, SELFPAY | PROVIDERS: PCP Electrodiagnostic Medicine; Visit Provider Dermatology | DX: C44.219 Basal cell carcinoma of skin of left ear and external auricular canal (principal) | CPT/HCPCS: 99213 ==

== ENCOUNTER 2025-10-08 12:28 | Oncology outpatient (recurring) (ONCR) | payer MEDICARE, OTHER, SELFPAY ==
[2025-10-08] MEDS: methylPREDNISolone sod succ 40 mg/mL INJ IVP (13:17)
[2025-10-08] MEDS: abatacept 1,000 MG in sodium chloride 0.9% (100 ml) 100 ML 200 MG IV (13:37)
[2025-10-08 14:10] VITALS: BP 117/66; PULSE 63; RESP 17; TEMP 36.6; O2SAT 96
== END 2025-10-19 23:59 | disposition home or self-care (01) ==
PROVIDERS: PCP Electrodiagnostic Medicine; Visit Provider Internal Medicine Rheumatology
DX: M05.79 Rheumatoid arthritis with rheumatoid factor of multiple sites without organ or systems involvement (principal); Z79.899 Other long term (current) drug therapy
CPT/HCPCS: 96365; 96375; A4222; J0129; J2919; J7050; J9999

== ENCOUNTER 2025-11-05 12:30 | Oncology outpatient (recurring) (ONCR) | payer MEDICARE, OTHER, SELFPAY ==
[2025-11-05 12:56] VITALS: BP 134/77; PULSE 71; RESP 18; TEMP 36.4; O2SAT 93
[2025-11-05] MEDS: methylPREDNISolone sod succ 40 mg/mL INJ IVP (13:07)
[2025-11-05] MEDS: abatacept 1,000 MG in sodium chloride 0.9% (100 ml) 100 ML 200 MG IV (13:32)
[2025-11-05 14:11] VITALS: BP 111/79; PULSE 63; TEMP 36.4; O2SAT 96
== END 2025-11-19 23:59 | disposition home or self-care (01) ==
LOC: ONCMED 12:30
PROVIDERS: PCP Electrodiagnostic Medicine; Visit Provider Internal Medicine Rheumatology
DX: M05.79 Rheumatoid arthritis with rheumatoid factor of multiple sites without organ or systems involvement (principal); Z79.899 Other long term (current) drug therapy
CPT/HCPCS: 96375; 96413; J0129; J2919; J7050; J9999

== ENCOUNTER → 2025-11-06 10:17 | Outpatient (BNVA) | payer MEDICARE, OTHER, SELFPAY | PROVIDERS: PCP Electrodiagnostic Medicine; Visit Provider Dermatology | DX: C44.219 Basal cell carcinoma of skin of left ear and external auricular canal (principal); L57.0 Actinic keratosis; L57.8 Other skin changes due to chronic exposure to nonionizing radiation; Z85.828 Personal history of other malignant neoplasm of skin; Z08 Encounter for follow-up examination after completed treatment for malignant neoplasm; Z86.007 Personal history of in-situ neoplasm of skin | CPT/HCPCS: 99213 ==

== ENCOUNTER 2025-11-14 17:05 | Emergency (ER) | payer MEDICARE, OTHER, SELFPAY ==
--- OUTSIDE RECORDS SUMMARY | 2025-11-05 05:00 | XMS_ITS ---
Author Organization [facility] Address [address] [place] [address] Care Team Providers Care Deck Specialist Name Role Phone Shahriar NATHANTony Primary Care Provider Unavail able Sebas Jaime Unavailable [phone] Allergies Allergen (clinical drug ingredient) Drug/Non Drug Allergy documented on EMR Reaction Allergy Type Onset Date Status methotrexate Methotrexate Sodium Unknown Drug Allergy 01/2010 Active Neosporin Unknown Drug Allergy 03/22/2010 Active Neosporin AF rash Drug Allergy Acti ve silver sulfadiazine Silvadene Unknown Drug Allergy 010 Active Substance with 1-ibqovsohhgcwujide-5- receptor antagonist mechanism of action (substance) 5HT3 Receptor Antagonists Unknown Drug Allergy 03/22/2010 Inactive Adhesive rash Allergy Active tape Unknown Allergy 03/22/2010 Active Results Component Value Reference Range Flag Notes Urine Confirmation Panel (in strument) - 73920 Reviewed date:11/11/2025 02:49:14 PM Interpretation: Performing Lab: Notes/Report: 6-Acetylmorphine 0 [...] the U.S. Food and Drug Administration. Hydrocodone 122 <75 ng/mL H This test was developed and its performance characteristics determined by [facility]. It has not been cleared or approved by the U.S. Food and Drug Administration. Hydromorphone 100 <75 ng/mL H This test w as [...] the U.S. Food and Drug Administration. Norhydrocodone 130 <75 ng/mL H This test was developed [...] Food and Drug Administration. Urine Drug Screen ([facility] read) - 84654 Reviewed date:11/05/2025 11:37:17 AM Interpretation: Performing Lab: Notes/Report: AMP - BEA - BUP - BZO - MDMA - OPI - PCP - OXY - MTD - MAMP - REASON FOR VISIT 2 mo RK Medications Medication SIG (Take, Route, Frequency, Duration) Notes Start Date End Date Status Osteo Bi-Flex *Reorder from DataRPM for eRx and Interaction Alerts* Unknown HYDROcodone-Acetamin ophen 7.5-325 MG Tablet 1 tablet Orally every 6 hrs; Duration: 30 days Do not exceed 4 per day Fill on 12/15/2025 11/05/2025 01/14/2026 Active PreserVision AREDS *Pick strength-form from DataRPM for eRX* Unknown Valsartan *Pick strength-form from DataRPM for eRX* Unknown Ventolin HFA 108 (90 Base) MCG/ACT Aerosol Solution Inhale 1 to 2 puff(s) by mouth q 4 to 6 hr prn Inhalation; Duration: 30 Ventolin HFA 90mcg/1actuation Oral Inhaler Inhale 1 to 2 puff(s) by mouth q 4 to 6 hr prn 03/22/2010 Unknown Aspirin *Pick strength-form from DataRPM for eRX* Unknown Limbrel 500 mg Capsule Take 1 capsule(s) by mouth q12h Oral; Duration: 30 Limbrel 500mg Capsules Take 1 capsule(s) by mouth q12h 03/22/2010 Unknown tiZANidine HCl 4 MG Tablet TAKE 1 TABLET BY MOUTH TWICE A DAY Oral; Duration: 30 Days Unknown Vitamin D3 1000 UNIT Capsule 1 capsule Orally Once a day Unknown HYDROcodone-Acetamin ophen 7.5-325 MG Tablet 1 tablet Orally every 6 hrs; Duration: 30 days Do not exceed 4 per day Fill on 11/15/2025 or few days early due to weekend/holiday fill 11/05/2025 12/15/2025 Active Pantoprazole Sodium 40 MG Tablet Delayed Release Oral; Duration: 90 Days Unknown predniSONE 20 MG Tablet Oral; Duration: 30 Days Unknown Glucosamine HCl 1,500 mg Tablet Take 1 tablet(s) by mouth daily Oral; Duration: 30 *please review for potential update for e-prescription and drug interaction check* Glucosamine 1,500mg Tablet Take 1 tablet(s) by mouth daily 03/22/2010 Unknown Losartan Potassium 100 MG Tablet TAKE 1 TABLET BY MOUTH EVERY DAY Oral; Duration: 57 Days Unknown Orencia Unknown Aspirin 81 MG Tablet Chewable 2 tab(s) po q pm Oral; Duration: 30 Aspirin (ASA) 81mg Chewable Tablet 2 tab(s) po q pm #100 ([facility] [place]) tablet(s) 03/22/2010 Unknown B Complex Unknown Eye Health Unknown Social History Sex Assigned At : Social [...] Notes: past tobacco use past alcohol use Vital Signs Height 72 in 11/05/2025 Weight 178 lbs 11/05/2025 BMI 24.14 kg/m2 11/05/2025 Height-cm 182.88 cm 11/05/2025 Weight-kg 80.74 kg 11/05/2025 Encounters Encounter Location Date Provider Diagnosis [facility] [place] [address] [place] [address] 11/05/2025 Sebas Jaime Chronic pain due to trauma G89.21 ; Cervicalgia M54.2 ; 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 M05.752 ; Pain in right shoulder M25.511 ; MCC (current) use of opiate analgesic Z79.891 and Unspecified abnormalities of gait and mobility R26.9 Assessments Encounter Date Diagnosis (ICD Code) Assessment Notes Treatment Notes Treatment Clinical Notes Section Notes 11/05/2025 Chronic pain due to trauma (ICD-10 - G89.21) I had a nice visit with the patient and his son today regarding his chronic pain issues. He has his MRI scheduled in two weeks. We will review this at the next appointment. He does not feel like the medication has been effective for him, so we will increase the dosage to the 10 mg tablets. We hope to avoid any dosage higher than he was on previously. He continues to find the current medication regimen relatively effective overall. His UDS and pill counts have been consistent with his current treatment regimen. We will continue his medications unchanged. We will follow up in a month and proceed accordingly. 11/05/2025 Cervicalgia (ICD-10 - M54.2) 11/05/2025 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 (ICD-10 - M05.752) 11/05/2025 Pain in right shoulder (ICD-10 - M25.511) 11/05/2025 [employer] (current) use of opiate analgesic (ICD-10 - [...] to abide by our urine testing policy. 11/05/2025 Unspecified abnormalities of gait and mobility (ICD-10 - R26.9) 11/05/2025 Other I, Khushbu Sharp, am scribing for Dr. Sebas Jaime. I, Dr. Sebas Jaime, personally performed the services described in this documentation, as scribed by Khushbu Sharp, and it is both accurate and complete. Plan Of Treatment Medication Medication Name Sig Start Date Stop Date Notes HYDROcodone-Acetaminophe n 7.5-325 MG Tablet 1 tablet Orally every 6 hrs; Duration: 30 days 11/05/2025 01/14/2026 Fill on 12/15/2025 HYDROcodone-Acetaminophe n 7.5-325 MG Tablet 1 tablet Orally every 6 hrs; Duration: 30 days 11/05/2025 12/15/2025 Fill on 11/15/2025 or few days early due to weekend/holiday fill Treatment Notes Assessment Notes Chronic pain due to trauma I had a nice visit with the patient and his son today regarding his chronic pain issues. He has his MRI scheduled in two weeks. We will review this at the next appointment. He does not feel like the medication has been effective for him, so we will increase the dosage to the 10 mg tablets. We hope to avoid any dosage higher than he was on previously. He continues to find the current medication regimen relatively effective overall. His UDS and pill counts have been consistent with his current treatment regimen. We will continue his medications unchanged. We will follow up in a month and proceed accordingly. MCC (current) use of o piate analgesic RECOMMEND URINE TESTING TODAY Urine drug screening [...] to abide by our urine testing policy. Other I, Khushbu Sharp, am scribing for Dr. Sebas Jaime. I, Dr. Sebas Jaime, personally performed the services described in this documentation, as scribed by Khushbu Sharp, and it is both accurate and complete. Next Appt Details Follow Up: 2 Months, Reason: Provider Name:Sebas Jaime, 01/07/2026 09:40:00 AM, [address] [place], [address], History and Physical Notes * HPI (History of Present Illness) Category Sub-Category Detail Notes Category Not es Provider Note They scheduled my MRI for New 's Jennifer. The medication you gave me doesn't work. Patient returns to the clinic for a 2-month follow-up visit. He is prescribed hydrocodone 7.5-325 mg #120 by the clinic. [place] CHEMISTS was reviewed and was found to be compliant with current treatment. Pain Details Pain Location Right Arm,Right Shoulder Quality Sharp/Stabbing,Dull/ Ache,Throbbing Severity of pain at its worst 8 Severity of pain at its best 3 Severity of average pain 5 Severity of pain right now 4 Severity of pain on medication 3 When did you last take your pain medicin e Dec. 17th 2025 @ 4:30 am Medication Details Do you have a lock b ox or safe place for medication away from minors and/or others? Yes Do you have any leftover pain medication building up at your house? No Do you understand that pain medication c an be addicting and can cause overdose? Yes Do you feel you can REDUCE the amount of medication you take today? No Opioid Assessment Tools Pill Count 42 tabs Last Urine Drug Screen 09/04/25 Cup Today's Rapid Urine Drug Screen will be sent for confirmation [place] Prescription Monitoring Program [place] PDMP, found to be consistent with treatment history, reviewed today Treatment History Test undergone in the past None Ipma Past medication you have taken Spivey 7.5 /325 #120 Treatments you have had 05/14/2024 Perip heral Nerve Stimulator Examination Category Sub-Category Detail Notes Category Not es General Examination CONSTITUTIONAL: Patient appears to be appropriate looking for stated age. Patient is awake, alert and oriented to person, place and time with recent/remote memory intact, . male in no acute distress noted. RESPIRATORY: On visual inspection, breathing equal bilaterally, trachea midline. CARDIOVASCULAR: reg rate CERVICAL SPINE: Cervical Spine is grossly stable. Inspection Cervical Spine: paraspinal tightness Cervical Trigger Points: multiple palpable trigger points in head, neck, trapezius and sternocleidomastoid muscles. Neurology - MENTAL STATUS: Patient is awake, alert His recent memory is intact. His mood and affect are normal. Coordination: Antalgic gait Left hip pain on ROM Neurology - MOTOR STRENGTH: Left UE strength - Flexors: 5/5. Right UE strength - Flexors: 4+/5. Left UE strength - Extensors: 5/5. Right UE strength - Extensors: 4+/5. Left UE Tone: Normal. Right UE Tone: Normal. Left LE strength - Flexors: 4+/5. Right LE strength - Flexors: 5/5. Left LE strength - Extensors: 4+/5. Right LE strength - Extensors: 5/5. Left LE Tone: Normal. Right LE Tone: Normal. SENSATION: CN II- XI grossly normal. Dysesthesias in Left lower leg Right Shoulder-Generalized tenderness, mild pain on ROM. Flexion and Abduction to about 90 degrees. Progress Notes * Tai GARCIA DDOB: [birth year] (60 yo M)Acc No.[id number]:11/05/2025 Progress Notes Patient: Tai Real Provider: Abad Jaime D.O. :1965 A ge:60 Y S ex:Male Date:11/05/2025 Address:[address] [place], [place] [id number] Pcp:Tony Bess, DO Check In:10:49 AM RN PALLIATIVE Subjective: * Chief Complaints: * 2 mo RK * HPI: P ain Details: Pain Location R ight Arm,Right Shoulder. Quality S harp/Stabbing,Dull/Ache,Throbbing. Severity of pain at its worst 8 . Severity of pain at its best 3 . Severity of pain on medication 3 . Severity of average pain 5 . Severity of pain right now 4 . When did you last take your pain medicine D ec. 2024 @ 4:30 am. M edication Details: Do you have a lock box or safe place for medication away from minors and/or others? Y es. Do you have any leftover pain medication building up at your house? N o. Do you understand that pain medication can be addicting and can cause overdose? Y es. Do you feel you can REDUCE the amount of medication you take today? N o. O pioid Assessment Tools: Pill Count 4 2 tabs. Last Urine Drug Screen 1 Cup. Today's Rapid Urine Drug Screen w ill be sent for confirmation. [place] Prescription Monitoring Program [place], found to be consistent with treatment history, reviewed today. T reatment History: Test undergone in the past None Ipma. Past medication you have taken Spivey 7.5/325 #120. Treatments you have had 0 05/14/2024 Peripheral Nerve Stimulator. Mckinley zaman Note: They scheduled my MRI for New Year's Jennifer. The medication you gave me doesn't work. Patient returns to the clinic for a 2-month follow-up visit. He is prescribed hydrocodone 7.5-325 mg #120 by the clinic. [place] CHEMISTS was reviewed and was found to be compliant with current treatment. * ROS: G eneral/Constitutional: Fatigue/Tiredness N o. F ever N o. R ecent weight gain N o. R ecent weight loss N o. R espiratory: Cough N o. W heezing N o. S hortness of breath?No. G astrointestinal: Abdominal pain N o. C onstipation N o. N ausea?No. V omiting N o. P sychiatric: Anxiety N o. D epression N o. S uicidal thoughts N o. P anic Attacks N o. * Screening: * COMM - Current Opioid Misuse Measure: D ocumented By: Ashwin Samuel core: 2?Interpretation: Score indicates low risk of abuse behaviors C OMM - Current Opioid Misuse Measure How often have you had trouble with thinking clearly or had memory problems?NeverHow often do people complain that you are not completing necessary tasks? (i.e., doing things that need to be done, such as going to class, work or appointments)NeverHow often have you had to go to someone other than your prescribing physician to get sufficient pain relief from medications? (i.e., another doctor, the Emergency Room, friends, street sources)NeverHow often have you taken your medications differently from how they are prescribed?SeldomHow often have you seriously thought about hurting yourself?NeverHow much of your time was spent thinking about opioid medications (having enough, taking them, dosing schedule, etc.)?NeverHow often have you been in an argument?NeverHow often have you had trouble controlling your anger (e.g., road rage, screaming, etc.)?NeverHow often have you needed to take pain medications belonging to someone else?NeverHow often have you been worried about how you're handling your medications?NeverHow often have others been worried about how you're handling your medications?NeverHow often have you had to make an emergency phone call or show up at the clinic without an appointment?NeverHow often have you gotten angry with people?NeverHow often have you had to take more of your medication than prescribed?SeldomHow often have you borrowed pain medication from someone else?NeverHow often have you used your pain medicine for symptoms other than for pain (e.g., to help you sleep, improve your mood, or relieve stress)?NeverHow often have you had to visit the Emergency Room?Never * Medical History: Positive forHypertension: dx'd in 2008; uncontrolled; ; Positive forAsthma: dx'd in 2008; moderate severity; ; Positive forRheumatoid Arthritis: since 2007; primarily affecting the fingers, hips, knees, and feet; ; Arthritis High Blood Pressure Bronchitis Medical History Verified * Surgical History: right shoulder surgery x7 left knee unspecified left elbow unspecified right EDWIN Surgical History verified. * Hospitalization/Major Diagno stic Procedure: right shoulder Hospitalization Verified. * Family History: F ather: 88 yrs. M other: 96 yrs. M igrated Family History: : Rheumatoid arthritis,Stroke. F amily History Verified.. * Social History: D rugs/Alcohol: C affeine I ntake: 3 -4 cups per day M igrated Social History: M igrated Social History: Alcoholic beverages? - No, C urrently on disability? - Yes, D rug or substance abuse? - No, M arital Status - , N onprescription drug use? - No, S moking - No, W orking currently? - No. S ocial History Verified. p ast tobacco use past alcohol use. * Medications: U nknownAspirin 81 MG Tablet Chewable 2 tab(s) po q pm Oral , Notes to Pharmacist: Aspirin (ASA) 81mg Chewable Tablet 2 tab(s) po q pm # 100 ([facility] [place]) tablet(s)Aspirin , Notes to Pharmacist: *Pick strength-form from DataRPM for eRX*B Complex Eye Health Glucosamine HCl 1,500 mg Tablet Take 1 tablet(s) by mouth daily Oral , Notes to Pharmacist: *please review for potential update for e-prescription and drug interaction check* Glucosamine 1,500mg Tablet Take 1 tablet(s) by mouth dailyHYDROcodone-Acetaminophen 7.5-325 MG Tablet 1 tablet Orally every 6 hrs Do not exceed 4 per day, stop date 11/09/2025, Notes to Pharmacist: Fill on Limbrel 500 mg Capsule Take 1 capsule(s) by mouth q12h Oral , Notes to Pharmacist: Limbrel 500mg Capsules Take 1 capsule(s) by mouth [id number] Potassium 100 MG Tablet TAKE 1 TABLET BY MOUTH EVERY DAY Oral Orencia Osteo Bi-Flex , Notes to Pharmacist: *Reorder from DataRPM for eRx and Interaction Alerts*Pantoprazole Sodium 40 MG Tablet Delayed Release Oral predniSONE 20 MG Tablet Oral PreserVision AREDS , Notes to Pharmacist: *Pick strength-form from [facility] for eRX*tiZANidine HCl 4 MG Tablet TAKE 1 TABLET BY MOUTH TWICE A DAY Oral Valsartan , Notes to Pharmacist: *Pick strength-form from [facility] for eRX*Ventolin HFA 108 (90 Base) MCG/ACT Aerosol Solution Inhale 1 to 2 puff(s) by mouth q 4 to 6 hr prn Inhalation , Notes to Pharmacist: Ventolin HFA 90mcg/1actuation Oral Inhaler Inhale 1 to 2 puff(s) by mouth q 4 to 6 hr prnVitamin D3 1000 UNIT Capsule 1 capsule Orally Once a day Medication List reviewed and reconciled with the patientUnknown Aspirin 81 MG Tablet Chewable 2 tab(s) po q pm Oral , Notes to Pharmacist: Aspirin (ASA) 81mg Chewable Tablet 2 tab(s) po q pm # 100 ([facility] [place]) tablet(s)Unknown Aspirin , Notes to Pharmacist: *Pick strength-form from [facility] for eRX*Unknown B Complex Unknown Eye Health Unknown Glucosamine HCl 1,500 mg Tablet Take 1 tablet(s) by mouth daily Oral , Notes to Pharmacist: *please review for potential update for e-prescription and drug interaction check* Glucosamine 1,500mg Tablet Take 1 tablet(s) by mouth dailyUnknown HYDROcodone-Acetaminophen 7.5-325 MG Tablet 1 tablet Orally every 6 hrs Do not exceed 4 per day, stop date 11/09/2025, Notes to Pharmacist: Fill on Unknown Limbrel 500 mg Capsule Take 1 capsule(s) by mouth q12h Oral , Notes to Pharmacist: Limbrel 500mg Capsules Take 1 capsule(s) by mouth [id number] Losartan Potassium 100 MG Tablet TAKE 1 TABLET BY MOUTH EVERY DAY Oral Unknown Orencia Unknown Osteo Bi-Flex , Notes to Pharmacist: *Reorder from [facility] for eRx and Interaction Alerts*Unknown Pantoprazole Sodium 40 MG Tablet Delayed Release Oral Unknown predniSONE 20 MG Tablet Oral Unknown PreserVision AREDS , Notes to Pharmacist: *Pick strength-form from [facility] for eRX*Unknown tiZANidine HCl 4 MG Tablet TAKE 1 TABLET BY MOUTH TWICE A DAY Oral Unknown Valsartan , Notes to Pharmacist: *Pick strength-form from DataRPM for eRX*Unknown Ventolin HFA 108 (90 Base) MCG/ACT Aerosol Solution Inhale 1 to 2 puff(s) by mouth q 4 to 6 hr prn Inhalation , Notes to Pharmacist: Ventolin HFA 90mcg/1actuation Oral Inhaler Inhale 1 to 2 puff(s) by mouth q 4 to 6 hr prnUnknown Vitamin D3 1000 UNIT Capsule 1 capsule Orally Once a day Medication List reviewed and reconciled with the patient * Allergies: N eosporin AF: rash - AllergyMethotrexate Sodium: Allergy - Onset Date 5745-40-20Dzcgegpty: Allergy - Onset Date 1854-47-91Medytnvpg: Allergy - Onset Date 4833-35-34Nanicuiz: rash - Allergytape: Allergy - Onset Date 5888-98-48otaLzaxhuafm Verified. Objective: * Vitals: H t: 72 in, Wt:178lbs, Wt-k.74 kg, BMI:24.14Index, Ht-cm: 182.88 cm. * Examination: G eneral Examination: C ONSTITUTIONAL: Patient appears to be appropriate looking for stated age. Patient is awake, alert and oriented to person, place and time with recent/remote memory intact, . male in no acute distress noted. R ESPIRATORY: On visual inspection, breathing equal bilaterally, trachea midline. C ARDIOVASCULAR: reg rate CERVICAL SPINE: C ervical Spine is grossly stable. Inspection Cervical Spine: paraspinal tightness Cervical Trigger Points: multiple palpable trigger points in head, neck, trapezius and sternocleidomastoid muscles. N eurology - MENTAL STATUS: Patient is awake, alert His recent memory is intact. His mood and affect are normal. Coordination: Antalgic gait Left hip pain on ROM N eurology - MOTOR STRENGTH: Left UE strength - Flexors: 5/5. Right UE strength - Flexors: 4+/5. Left UE strength - Extensors: 5/5. Right UE strength - Extensors: 4+/5. Left UE Tone: Normal. Right UE Tone: Normal. Left LE strength - Flexors: 4+/5. Right LE strength - Flexors: 5/5. Left LE strength - Extensors: 4+/5. Right LE strength - Extensors: 5/5. Left LE Tone: Normal. Right LE Tone: Normal. SENSATION: CN II- XI grossly normal. Dysesthesias in Left lower leg Right Shoulder-Generalized tenderness, mild pain on ROM. Flexion and Abduction to about 90 degrees. Assessment: * Assessment: 1. C hronic pain due to trauma - G89.21 (Primary) 2 . C ervicalgia - M54.2? 3. R heumatoid arthritis involving left hip with positive rheumatoid factor - M05.752 4 . P ain in right shoulder - M25.511 5 . L tanisha term (current) use of opiate analgesic - Z79.891 6 . U nspecified abnormalities of gait and mobility - R26.9 Plan: * Treatment: 2. P ain in right shoulder Refill HYDROcodone-Acetaminophen Tablet, 7.5-325 MG, 1 tablet, Orally, every 6 hrs Do not exceed 4 per day, 30 days, 120 Tablet, Start Date: 11/05/2025, Stop Date: 12/15/2025, Refills 0, Notes to Pharmacist: Fill on 11/15/2025 or few days early due to weekend/holiday fill; R efill HYDROcodone-Acetaminophen Tablet, 7.5-325 MG, 1 tablet, Orally, every 6 hrs Do not exceed 4 per day, 30 days, 120 Tablet, Start Date: 11/05/2025, Stop Date: 01/14/2026, Refills 0, Notes to Pharmacist: Fill on 12/15/2025. 3. L tanisha term (current) use of opiate analgesic L AB: Urine Drug Screen (cup read) - 32059 (Collection Date & Time - 11/05/2025) Value Reference Range A MP - * C OC - * B UP - * B ZO - * M DMA - * O PI - * P CP - * O XY - * M TD - * M AMP - ?LAB: Urine Confirmation Panel (instrument) - [id number] (Collection Date & Time - 11/05/2025) Notes: RECOMMEND URINE TESTING TODAY Urine drug screening will be performed today to monitor compliance with opioid therapy or to serve as a baseline screen for a patient who may be a candidate for opioid therapy in the future, pending UDS results. We will monitor with in- office testing (rapid testing) today and review the results prior to dispensing prescription. All positive results will be sent for quantitative analysis to ensureaccuracy and quantify amounts. Any expected positive results that return negative will also be sentfor quantitative analysis. Any questionable read or any medication we cannot test for in the officeconfidently will be sent for quantitative analysis, as well. Patient has been made aware of this policy and agrees to abide by our urine testing policy.??4.?Others? Notes: I, Khushbu Sharp, am scribing for Dr. Sebas Jaime. I, Dr. Sebas Jaime, personally performed the services described in this documentation, as scribed by Khushbu Sharp, and it is both accurate and complete.?? * Procedure Codes: 8 0305 DRUG TEST PRSMV DIR OPT OBS IH, Modifiers: QW * Follow Up: 2 Months Billing Information: * Visit Code: 46277 Office Visit, Est Pt., Level 4. * Procedure Codes: 83815 DRUG TEST PRSMV DIR OPT OBS IH. Modifiers: QW Care Plan Details* * Electronic signature of Sebas Jaime DO on 11/14/2025 at 05:12 PM RN PALLIATIVE Sign off status: Pending * Provider: Abad Jaime D.O. Date: 01/06/2025 Generated for Theresa dumont/Saniya/Kang on: 01/15/2025 05:12 PM RN PALLIATIVE
[2025-11-14 17:10] VITALS: BP 169/83; PULSE 70; RESP 17; TEMP 36.6; O2SAT 97
--- OUTSIDE RECORDS SUMMARY | 2025-11-14 17:12 | XMS_ITS | Encounter Summary ---
Author Organization [facility] Address [address] [place] [address] Care Team Providers Care Barrel Lathe Operator Name Role Phone Non-Staff, Physician Primary Care Provider Unava ilable Encounter Details Date Type Department Care Team (Latest Contact Info) Description 10/15/2001 Outpatient Historical [facility] Family Medicine [place] 104 [facility] [address] [place] [address] Chucho Aldana MD [address] 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
--- OUTSIDE RECORDS SUMMARY | 2025-11-14 17:12 | XMS_ITS | Encounter Summary ---
Author Organization [facility] Address [address] [place] [address] Care Team Providers Care Petrologist Name Role Phone Non-Staff, Physician Primary Care Provider Unava ilable Encounter Details Date Type Department Care Team (Latest Contact Info) Description 07/18/2003 Outpatient Historical [facility] Medicine [place] 104 [facility] 60 [place] [address] Misael Ornelas DO NO ADDRESS ON FILE HEARING LOSS NOS (Primary Dx); OTHER PSORIASIS; ACUTE SINUSITIS NOS Social History Tobacco Use Types Packs/Day Years Used Date Smoking Tobacco: Never Assessed Sex and Gender Information Value Date Recorded Sex Assigned at Not on file 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
--- OUTSIDE RECORDS SUMMARY | 2025-11-14 17:12 | XMS_ITS | Encounter Summary ---
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
--- OUTSIDE RECORDS SUMMARY | 2025-11-14 17:12 | XMS_ITS | Encounter Summary ---
Author Organization [facility] Address [address] [place] [address] Care Team Providers Care Social Media Designer Name Role Phone Non-Staff, Physician Primary Care Provider Unava ilable Encounter Details Date Type Department Care Team (Latest Contact Info) Description 12/19/2005 Outpatient Historical [facility] Medicine[address] [address] Inga Garcia, SALES MARKETING DIRECTOR [address] [place] [address] ACUTE SINUSITIS NOS (Primary Dx) Social History Tobacco Use Types Packs/Day Years Used Date Smoking Tobacco: Never Assessed Sex and Gender Information Value Date Recorded Sex Assigned at Not on file 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
--- OUTSIDE RECORDS SUMMARY | 2025-11-14 17:12 | XMS_ITS | Encounter Summary ---
Author Organization [facility] Address [address] [place] [address] Care Team Providers Care Basin Cleaner Name Role Phone Non-Staff, Physician Primary Care Provider Unava ilable Encounter Details Date Type Department Care Team (Latest Contact Info) Description 04/12/2007 Outpatient Historical [facility] Family Medicine [place] 104 [facility] 60 [place] [address] Tali Lantigua MD NO ADDRESS ON FILE Pain in Limb (Primary Dx) Social History Tobacco Use Types Packs/Day Years Used Date Smoking Tobacco: Never Assessed Sex and Gender Information Value Date Recorded Sex Assigned at Not on file 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
--- OUTSIDE RECORDS SUMMARY | 2025-11-14 17:12 | XMS_ITS | Encounter Summary ---
Author Organization [facility] Address [address] [place] [address] Care Team Providers Care Systems Checkout Mechanic Name Role Phone Non-Staff, Physician Primary Care Provider Unava ilable Encounter Details Date Type Department Care Team (Latest Contact Info) Description 09/24/2001 Outpatient Historical [facility] Family Medicine [place] 104 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
--- OUTSIDE RECORDS SUMMARY | 2025-11-14 17:12 | XMS_ITS | Encounter Summary ---
Author Organization [facility] Address [address] [place] [address] Care Team Providers Care Teacher Emotionally Impaired Name Role Phone Non-Staff, Physician Primary Care Provider Unava ilable Encounter Details Date Type Department Care Team (Latest Contact Info) Description 08/24/2001 Outpatient Historical 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
--- OUTSIDE RECORDS SUMMARY | 2025-11-14 17:12 | XMS_ITS | Encounter Summary ---
Author Organization [facility] Address [address] [place] [address] Care Team Providers Care Checking Clerk Name Role Phone Non-Staff, Physician Primary Care Provider Unava ilable Encounter Details Date Type Department Care Team (Latest Contact Info) Description 09/20/2001 Outpatient Historical [facility] Family Medicine [place] [address] [facility] 60 [place] [address] Tali Lantigua MD NO ADDRESS ON FILE SHORTNESS OF BREATH (Primary Dx); PALPITATIONS Social History Tobacco Use Types Packs/Day Years Used Date Smoking Tobacco: Never Assessed Sex and Gender Information Value Date Recorded Sex Assigned at Not on file 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
--- OUTSIDE RECORDS SUMMARY | 2025-11-14 17:12 | XMS_ITS | Encounter Summary ---
Author Organization [facility] Address [address] [place] [address] Care Team Providers Care Arts And Humanities Council Director Name Role Phone Non-Staff, Physician Primary Care Provider Unava ilable Encounter Details Date Type Department Care Team (Latest Contact Info) Description 01/08/2001 Outpatient Historical [facility] Family Medicine [place] 104 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
--- OUTSIDE RECORDS SUMMARY | 2025-11-14 17:12 | XMS_ITS | Encounter Summary ---
Author Organization [facility] Address [address] [facility] Attn: [place] [address] Care Team Providers Care Doctor Of Veterinary Medicine Name Role Phone Non-Staff, Physician Primary Care Provider Unava ilable Encounter Details Date Type Department Care Team (Late st Contact Info) Description 08/29/2001 [place] [address] [facility] [address] [place] [address] Social History Tobacco Use Types Packs/Day Years Used Date Smoking Tobacco: Never Assessed Sex and Gender Information Value Date Recorded Sex Assigned at Not on file 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
--- OUTSIDE RECORDS SUMMARY | 2025-11-14 17:12 | XMS_ITS | Encounter Summary ---
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 Social History Tobacco Use Types Packs/Day Years Used Date Smoking Tobacco: Never Assessed Sex and Gender Information Value Date Recorded Sex Assigned at Not on file 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
--- OUTSIDE RECORDS SUMMARY | 2025-11-14 17:12 | XMS_ITS | Encounter Summary ---
Author Organization 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
--- OUTSIDE RECORDS SUMMARY | 2025-11-14 17:12 | XMS_ITS | Encounter Summary ---
Author Organization [facility] Address [address] [place] [address] Care Team Providers Care Instrumentation Chemist Name Role Phone Non-Staff, Physician Primary Care Provider Unava ilable Encounter Details Date Type Department Care Team (Latest Contact Info) Description 09/04/2001 Outpatient Historical [facility] General Surgery [place] [address] [address] [place] [address] [place] [address] 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
--- OUTSIDE RECORDS SUMMARY | 2025-11-14 17:12 | XMS_ITS | Encounter Summary ---
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
--- OUTSIDE RECORDS SUMMARY | 2025-11-14 17:12 | XMS_ITS | Encounter Summary ---
Author Organization [facility] Address [address] [place] [address] Care Team Providers Care Claims Correspondence Clerk Name Role Phone Non-Staff, Physician Primary Care Provider Unava ilable Encounter Details Date Type Department Care Team (Latest Contact Info) Description 07/24/2007 Outpatient Historical [facility] Family Medicine [place] 104 [facility] 60 [place] [address] Constance Forbes NP NO ADDRESS ON FILE Acute Tonsillitis (Primary Dx); Pain in Joint, Site Unspecified Social History Tobacco Use Types Packs/Day Years Used Date Smoking Tobacco: Never Assessed Sex and Gender Information Value Date Recorded Sex Assigned at Not on file 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
--- OUTSIDE RECORDS SUMMARY | 2025-11-14 17:12 | XMS_ITS | Encounter Summary ---
Author Organization [facility] Address [address] [place] [address] Care Team Providers Care Drafter Automotive Design Layout Name Role Phone Non-Staff, Physician Primary Care Provider Unava ilable Encounter Details Date Type Department Care Team (Latest Contact Info) Description 08/03/2007 Outpatient Historical [facility] Medicine[address] [address] Inga Garcia, VOCATIONAL INSTRUCTOR [address] [place] [address] Pain in Joint, Site Unspecified (Primary Dx) Social History Tobacco Use Types Packs/Day Years Used Date Smoking Tobacco: Never Assessed Sex and Gender Information Value Date Recorded Sex Assigned at Not on file 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
--- OUTSIDE RECORDS SUMMARY | 2025-11-14 17:12 | XMS_ITS | Data Portability ---
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 I was present during interview and exam. I have reviewed and agree with above documentation . Dr. Deb Giraldo. [email or web address] Not available 06/26/2024 14:51:26 Plan of Treatment Reminders Order Date Submit Date Provider Last Modified By Organization Details Last Modified Time Details Appointments None recorded. Lab CMP, serum or plasma 2024 025 [facility], [address] [facility], [facility], [place], [address], 13:45:05 lipid panel, blood 2024 025 [facility], [address] [facility], [facility] 1, [place], [address], 13:45:08 CBC 2024 025 [facility], [address] [facility], [facility] 1, [place], [address], 12:35:07 rapid flu (A+B), PCR 2024 025 [email or web address] [facility] ([facility]), [address] [place], [address], 5 10:41:00 SARS CoV 2 RNA, QL, nasopharynx 2024 025 [email or web address] [facility] ([facility]), [address] [place] [address], [phone], 5 10:41:00 rapid strep group A, throat 2023 024 RYAN [facility] ([facility]), [address] [place] [address], [address], 4 08:55:43 vitamin B12, serum 2023 024 [email or web address] 47 [facility], [address] [place] [address], [address], [place], [id number], 4 09:32:53 vitamin D, 25-hydroxy, total, serum 2023 024 [email or web address] 47 [facility], [address] [place] [address], [address], [place], [id number], 4 09:32:53 CMP, serum or plasma 2023 024 [email or web address] 47 [facility], [address] [facility], [facility] 1, [place], [address], 4 09:32:53 CBC 2023 024 [email or web address] 47 [facility], [address] [facility], [address], [place], [address], 4 09:32:53 Referral None recorded. Procedures None recorded. Surgeries None recorded. Imaging None recorded. Medication Orders amoxicillin 875 mg-potassiu m clavulanate 125 mg tablet 2024 025 RYAN [id number], [address], [place], [place], [id number], 10:38:43 Augmentin 875 mg-125 mg tablet 2023 025 [email or web address] [facility] #[id number], [address], [place], [place], [id number], 10:38:35 Kenalog 40 mg/mL suspension for injection 2023 024 [email or web address] Not available 10:40:35 Patient TargetsNo targets recorded. Patient InstructionsNo instructions recorded. Reason for Referral None Reported. Results Created Date Observation Date Name Description Value Unit Range Abnormal Flag Note LastModifiedBy Organization Detail LastModifiedTime 06/26/2006/26/2024 CBC WBC 14.4 x10 4.5-10 .5 high Not Available [facility] [address] [facility], [place], [address], 06/26/2024 15:53:00 06/26/20 24 06/26/2024 CBC RBC 5.33 x10 4.30-5 .90 Not Available [facility] [address] [facility] 1, [place], [address], 06/26/2024 15:53:00 06/26/20 24 06/26/2024 CBC HGB 16.4 g/dL 13.5-1 8.0 Not Available [facility] [address] [facility] 1, [place], [address], 06/26/2024 15:53:00 06/26/2006/26/2024 CBC HCT 47.4 % 35.0-6 0.0 Not Available [facility] [address] [facility] 1, [place], [address], 06/26/2024 15:53:00 06/26/20 24 06/26/2024 CBC MCV 88.9 fL 80.0-9 9.9 Not Available [facility] [address] [facility] 1, [place], [address], 06/26/2024 15:53:00 06/26/20 24 06/26/2024 CBC MCH 30.7 pg 27.0-3 2.0 Not Available [facility] [address] [facility] [address] [facility] 1, [place], [address], 06/26/2024 15:53:00 06/26/20 24 06/26/2024 CBC MCHC 34.5 g/dL 32.0-3 6.0 Not Available [facility] [address] [facility] Louis[address]ag[facility] Marquez [facility] 1, [place], [address], 06/26/2024 15:53:00 06/26/20 24 06/26/2024 CBC RDW 13.4 % 11.5-1 4.5 Not Available [facility] [address] [facility] Louis[address]to Marquez [facility] 1, [place], [address], 06/26/2024 15:53:00 06/26/20 24 06/26/2024 CBC plt 247.1 x10 150.0- 451.0 Not Available [facility] [address] [facility] Louis[address] Marquez [facility] 1, [place], [address], 06/26/2024 15:53:00 06/26/20 24 06/26/2024 CBC lymphocytes % 9.5 % 20.0-5 0.0 low Not Available [facility] [address] [facility] Louis[address]illedagoberto Marquez [facility] 1, [place], [address], 06/26/2024 15:53:00 06/26/20 24 06/26/2024 CBC granulcytes % 82.0 % 30.0-7 0.0 high Not Available [facility] [address] [facility] Louis[address]agoberto Marquez [facility] 1, [place], [address], 06/26/2024 15:53:00 06/26/20 24 06/26/2024 CBC monocytes % 6.7 % 2.0-16 .0 Not Available [facility] [address] [facility] Louisvilled[address]oberto Marquez [facility] 1, [place], [address], 06/26/2024 15:53:00 06/26/20 24 06/26/2024 CBC granulcytes# 11.8 x10 Not Romina ilable [facility] [address] [facility] 1, [place], [address], 06/26/2024 15:53:00 06/26/20 24 06/26/2024 CBC lymphocytes # 1.4 x10 Not Available [facility] [address] [facility] [address] [address], [place], [address], 06/26/2024 15:53:00 06/26/20 24 06/26/2024 CBC monocytes # 1.0 x10 Not Avai lable [facility] [address] [address], [place], [address], 06/26/2024 15:53:00 06/26/20 24 06/26/2024 CMP (MALE ) glucose 112.0 mg/dL 60.0-9 9.0 high Not Available [facility] [address] [facility] 1, [place], [address], 06/26/2024 16:32:29 06/26/20 24 06/26/2024 CMP (MALE ) BUN (blood urea nitrogen) 14.0 mg/dL 10.0-2 6.0 Not Available [facility] [address] [facility] Alma [facility] 1, [place], [address], 06/26/2024 16:32:29 06/26/20 24 06/26/2024 CMP (MALE ) creatinine (serum) 1.0 mg/dL 0.4-1. 5 Not Available [facility] [address] [facility] Louis[address]agoberto Marquez [facility] 1, [place], [address], 06/26/2024 16:32:29 06/26/20 24 06/26/2024 CMP (MALE ) BUN/creatini ne ratio 14.29 ratio Not Available [facility] [address] [facility] 1, [place], [address], 06/26/2024 16:32:29 06/26/20 24 06/26/2024 CMP (MALE ) eGFR calculated 82.9 Not Available [facility] [address] [facility], [place], [address], 06/26/2024 16:32:29 06/26/20 24 06/26/2024 CMP (MALE ) total protein 7.0 g/dL 6.0-8. 5 Not Available [facility] [address] [facility], [place], [address], 06/26/2024 16:32:29 06/26/20 24 06/26/2024 CMP (MALE ) total bilirubin 0.4 mg/dL 0.2-1. 3 Not Available [facility] [address] [facility], [place], [address], 06/26/2024 16:32:29 06/26/20 24 06/26/2024 CMP (MALE ) albumin 4.2 g/dL 3.5-5. 5 Not Available [facility] [address] [facility] Alma [facility] 1, [place], [address], 06/26/2024 16:32:29 06/26/20 24 06/26/2024 CMP (MALE ) globulin 2.8 calc Not Available [facility] [address] [facility] Al[address] [facility] 1, [place], [address], 06/26/2024 16:32:29 06/26/20 24 06/26/2024 CMP (MALE ) AST (SGOT) 25.0 U/L 0.0-46 .0 Not Available [facility] [address] [facility] 1, [place], [address], 06/26/2024 16:32:29 06/26/20 24 06/26/2024 CMP (MALE ) altv (SGPT) 20.0 U/L 13.0-6 9.0 normal Not Available [facility] [address] [facility] 1, [place], [address], 06/26/2024 16:32:29 06/26/20 24 06/26/2024 CMP (MALE ) A/G ratio 1.5 ratio Not Available [facility] [address] [facility], [place], [address], 06/26/2024 16:32:29 06/26/20 24 06/26/2024 CMP (MALE ) ALP phos 114.0 U/L 30.0-1 40.0 normal Not Available [facility] [address] [facility], [place], [address], 06/26/2024 16:32:29 06/26/20 24 06/26/2024 CMP (MALE ) calcium 9.1 mg/dL 8.4-10 .5 Not Available [facility] [address] [facility] 1, [place], [address], 06/26/2024 16:32:29 06/26/20 24 06/26/2024 CMP (MALE ) sodium 141.0 mmol/ L 136.0- 145.0 Not Available [facility] [address] [facility] 1, [place], [address], 06/26/2024 16:32:29 06/26/20 24 06/26/2024 CMP (MALE ) potassium 3.7 mmol/ L 3.5-5. 1 Not Available [facility] [address] [facility] [address] [address], [place], [address], 06/26/2024 16:32:29 06/26/20 24 06/26/2024 CMP (MALE ) chloride 109.0 mmol/ L 98.0-1 10.0 normal Not Available [facility] [address] [facility], [place], [address], 06/26/2024 16:32:29 06/26/20 24 06/26/2024 CMP (MALE ) C02 26.0 mmol/ L 22.0-3 1.0 Not Available [facility] [address] [facility], [place], [address], 06/26/2024 16:32:29 06/26/20 24 06/26/2024 CMP (MALE ) anion gap 6.0 calc Not Available [facility] [address] [facility] 1, [place], [address], 06/26/2024 16:32:29 06/26/20 24 06/26/2024 CMP (MALE ) osmolality 292.3 calc Not Available [facility] [address] [facility] 1, [place], [address], 06/26/2024 16:32:29 06/26/20 24 06/27/2024 VITAM IN B12 vitamin B12 432 pg/mL 200-11 00 normal Not Available [facility] [address] [place], [address], 06/27/2024 07:10:57 06/26/20 24 06/27/2024 VITAM IN [...] /MS is recom zulay d: order code [id number] (kathy ents >2yrs ). See Note 1 Note 1 For addit ional infor donell giang refer to http: //[facility] alfonso page.Jones stDia gnost ics.c om/fa q/FAQ 199 (This link is being provi ded for infor nikolai rondon/ educa phillip l purpo ses only. ) Not Available [facility] [address] [place], [address], 06/27/2024 07:10:57 09/11/20 24 09/11/2024 rapid strep group A, throa t Strep negati ve Not Available [facility] ([facility]) [address] [place] [address], [address], 09/11/2024 08:43:00 01/24/20 25 01/23/2025 rapid flu (A+B) , PCR Influenza A negati ve Not Available [facility] ([facility]) [address] [place] [address], [address], 01/23/2025 09:51:10 01/24/20 25 01/23/2025 rapid flu (A+B) , PCR Influenza B negati ve Not Available [facility] ([facility]) [address] [place] [address], [address], 01/23/2025 09:51:10 01/24/20 25 01/23/2025 SARS CoV 2 RNA, QL, nasop haryn x COVID negati ve Not Available [facility] ([facility]) [address] [place] [address], [address], 01/23/2025 09:52:18 02/14/20 25 02/13/2025 CBC WBC 8.3 x10 4.5-10 .5 Not Available [facility] [address] [facility] 1, [place], [address], 02/13/2025 12:35:07 02/14/20 25 02/13/2025 CBC RBC 5.34 x10 4.30-5 .90 Not Available [facility] [address] [facility] 1, [place], [address], 02/13/2025 12:35:07 02/14/20 25 02/13/2025 CBC HGB 15.8 g/dL 13.5-1 8.0 Not Available [facility] [address] [facility] 1, [place], [address], 02/13/2025 12:35:07 02/14/20 25 02/13/2025 CBC HCT 47.5 % 35.0-6 0.0 Not Available [facility] [address] [facility] 1, [place], [address], 02/13/2025 12:35:07 02/14/20 25 02/13/2025 CBC MCV 89.0 fL 80.0-9 9.9 Not Available [facility] [address] [facility] 1, [place], [address], 02/13/2025 12:35:07 02/14/2002/13/2025 CBC MCH 29.6 pg 27.0-3 2.0 Not Available [facility] [address] [facility] 1, [place], [address], 02/13/2025 12:35:07 02/14/20 25 02/13/2025 CBC MCHC 33.3 g/dL 32.0-3 6.0 Not Available [facility] [address] [facility] Louisvilledagoberto Marquez [facility] 1, [place], [address], 02/13/2025 12:35:07 02/14/20 25 02/13/2025 CBC RDW 14.1 % 11.5-1 4.5 Not Available [facility] [address] [facility] 1, [place], [address], 02/13/2025 12:35:07 02/14/20 25 02/13/2025 CBC plt 248.1 x10 150.0- 451.0 Not Available [facility] [address] [facility] 1, [place], [address], 02/13/2025 12:35:07 02/14/20 25 02/13/2025 CBC lymphocytes % 16.0 % 20.0-5 0.0 low Not Available [facility] [address] [facility] 1, [place], [address], 02/13/2025 12:35:07 02/14/20 25 02/13/2025 CBC granulcytes % 75.0 % 30.0-7 0.0 high Not Available [facility] [address] [facility] 1, [place], [address], 02/13/2025 12:35:07 02/14/20 25 02/13/2025 CBC monocytes % 7.1 % 2.0-16 .0 Not Available [facility] [address] [facility] [address], [place], [address], 02/13/2025 12:35:07 02/14/20 25 02/13/2025 CBC granulcytes# 6.2 x10 Not Romina ilable [facility] [address] [facility] [address], [place], [address], 02/13/2025 12:35:07 02/14/20 25 02/13/2025 CBC lymphocytes # 1.3 x10 Not Available [facility] [address] [facility] [address], [place], [address], 02/13/2025 12:35:07 02/14/20 25 02/13/2025 CBC monocytes # 0.6 x10 Not Avai labjuliana [facility] [address] [facility] 1, [place], [address], 02/13/2025 12:35:07 02/14/20 25 02/13/2025 CMP (MALE ) glucose 97.0 mg/dL 60.0-9 9.0 Not Available [facility] [address] [facility] [address], [place], [address], 02/13/2025 13:45:05 02/14/20 25 02/13/2025 CMP (MALE ) BUN (blood urea nitrogen) 14.0 mg/dL 10.0-2 6.0 Not Available [address] [address], [place], [address], 02/13/2025 13:45:05 02/14/20 25 02/13/2025 CMP (MALE ) creatinine (serum) 0.9 mg/dL 0.4-1. 5 Not Available [address] [address], [place], [address], 02/13/2025 13:45:05 02/14/20 25 02/13/2025 CMP (MALE ) BUN/creatini ne ratio 15.56 ratio Not Available [address] [address], [place], [address], 02/13/2025 13:45:05 02/14/20 25 02/13/2025 CMP (MALE ) eGFR calculated 91.2 Not Available [facility] [address] [address], [place], [address], 02/13/2025 13:45:05 02/14/20 25 02/13/2025 CMP (MALE ) total protein 7.0 g/dL 6.0-8. 5 Not Available [facility] [address] [facility] 1, [place], [address], 02/13/2025 13:45:05 02/14/20 25 02/13/2025 CMP (MALE ) total bilirubin 0.4 mg/dL 0.2-1. 3 Not Available [facility] [address] [facility] 1, [place], [address], 02/13/2025 13:45:05 02/14/20 25 02/13/2025 CMP (MALE ) albumin 4.3 g/dL 3.5-5. 5 Not Available [facility] [address] [facility] 1, [place], [address], 02/13/2025 13:45:05 02/14/20 25 02/13/2025 CMP (MALE ) globulin 2.7 calc Not Available [facility] [address] [address], [place], [address], 02/13/2025 13:45:05 02/14/20 25 02/13/2025 CMP (MALE ) AST (SGOT) 23.0 U/L 0.0-46 .0 Not Available [facility] [address] [address], [place], [address], 02/13/2025 13:45:05 02/14/20 25 02/13/2025 CMP (MALE ) altv (SGPT) 19.0 U/L 13.0-6 9.0 normal Not Available [facility] [address] [facility] 1, [place], [address], 02/13/2025 13:45:05 02/14/20 25 02/13/2025 CMP (MALE ) A/G ratio 1.6 ratio Not Available [facility] [address] [address], [place], [address], 02/13/2025 13:45:05 02/14/20 25 02/13/2025 CMP (MALE ) ALP phos 122.0 U/L 30.0-1 40.0 normal Not Available [facility] [address] [facility] 1, [place], [address], 02/13/2025 13:45:05 02/14/20 25 02/13/2025 CMP (MALE ) calcium 9.4 mg/dL 8.4-10 .5 Not Available [facility] [address] [facility] 1, [place], [address], 02/13/2025 13:45:05 02/14/20 25 02/13/2025 CMP (MALE ) sodium 141.0 mmol/ L 136.0- 145.0 Not Available [facility] [address] [facility] 1, [place], [address], 02/13/2025 13:45:05 02/14/20 25 02/13/2025 CMP (MALE ) potassium 4.2 mmol/ L 3.5-5. 1 Not Available [facility] [address] [facility] 1, [place], [address], 02/13/2025 13:45:05 02/14/20 25 02/13/2025 CMP (MALE ) chloride 108.0 mmol/ L 98.0-1 10.0 normal Not Available [facility] [address] [facility] 1, [place], [address], 02/13/2025 13:45:05 02/14/20 25 02/13/2025 CMP (MALE ) C02 23.0 mmol/ L 22.0-3 1.0 Not Available [facility] [address] [facility] 1, [place], [address], 02/13/2025 13:45:05 02/14/20 25 02/13/2025 CMP (MALE ) anion gap 10.0 calc Not Available [facility] [address] [facility] 1, [place], [address], 02/13/2025 13:45:05 02/14/20 25 02/13/2025 CMP (MALE ) osmolality 291.5 calc Not Available [facility] [address] [facility], [place], [address], 02/13/2025 13:45:05 02/14/20 25 02/13/2025 LIPID PROFI LE (MALE ) cholesterol 230.0 mg/dL 0.0-20 0.0 high Not Available [facility] [address] [facility] 1, [place], [address], 02/13/2025 13:45:08 02/14/20 25 02/13/2025 LIPID PROFI LE (MALE ) trig 136.0 mg/dL 0.0-15 0.0 Not Available [facility] [address] [facility], [place], [address], 02/13/2025 13:45:08 02/14/20 25 02/13/2025 LIPID PROFI LE (MALE ) HDL - direct 53.0 mg/dL >40.0 Not Available [facility] [address] [facility] 1, [place], [address], 02/13/2025 13:45:08 02/14/20 25 02/13/2025 LIPID PROFI LE (MALE ) VLDL - direct 27.2 mg/dL Not Available [facility] [address] [facility] [address], [place], [address], 02/13/2025 13:45:08 02/14/20 25 02/13/2025 LIPID PROFI LE (MALE ) LDL - direct 149.8 mg/dL 0.0-13 0.0 high Not Available [facility] [address] [facility] 1, [place], [address], 02/13/2025 13:45:08 Result Notes None recorded. Problems Name Problem SNOMED Code Status Onset Date Resolution Date Notes Provider Name and Address Organization Details Recorded Time History of anxiety state 434104674 Active 2022 anxiety/d epression ; 3 11:46AM by Kaelyn Donovan, Office Visit; Promoted; acuity set as *; Not Available On license of [facility] 3 03:07:34 History of surgery 535650116 Active 2022 Right Shoulder Surgery; 3 11:46AM by Kaelyn Donovan, Office Visit; Promoted; acuity set as *; Not Available [facility] 3 03:07:34 Angina control 128310212 Active 2022 angina; unstable; 3 11:46AM by Kaelyn Donovan, Office Visit; Promoted; acuity set as *; Not Available [facility] 3 03:07:34 Peptic ulcer 46403662 Active 2022 PUD; 3 11:46AM by Kaelyn Donovan, Office Visit; Promoted; acuity set as *; Not Available [facility] 3 03:07:34 Psoriasis 4455995 Active 2022 Psoriasis ; 3 11:46AM by Kaelyn Donovan, Office Visit; Promoted; acuity set as *; Deb Giraldo, DO [address] [place] [address], [address] , [facility] 5 10:54:18 Appendect yane Active 2022 Appendect yane; 3 11:46AM by Kaelyn Donovan, Office Visit; Promoted; acuity set as *; Not Available On license of [facility] 3 03:07:35 Seroposit racquel rheumatoi d arthritis 567385798 Active 2022 Seroposit racquel rheumatoi d arthritis ; 3 11:46AM by Kaelyn Donovan, Office Visit; Promoted; acuity set as *; Not Available On license of [facility] 3 03:07:35 Vasectomy Active 2022 Vasectomy ; 3 11:46AM by Kaelyn Donovan, Office Visit; Promoted; acuity set as *; Not Available On license of [facility] 3 03:07:35 Osteoarth ritis of shoulder region 40319281 Active 2022 Deb Giraldo [address], [address] [place] [address] , [facility] 5 10:54:18 Aortic valve stenosis 64466200 Active 2022 Deb Giraldo [address] , [facility] 5 10:54:18 Malaise and fatigue 182445257 Active 2022 Deb Giraldo [address] , [facility] 3 16:17:53 Coronary arteriosc lerosis 60520560 Active 2022 Deb Giraldo [address] , [facility] 5 10:54:18 Rheumatoi d arthritis 19642240 Active 2022 Deb Giraldo [address] , [facility] 5 10:54:18 Fatigue 94439823 Active 2022 Deb Giraldo [place] [address] , [facility] 3 16:17:58 Vitamin B12 deficienc y (non anemic) 44942283 Active 2022 Deb Giraldo [address], [address] , [facility] 5 10:54:18 Leukocyto sis 748751178 Active 2022 Deb Giraldo, [address], [address] , [facility] 5 10:54:18 Essential hypertens ion 45079797 Active 2022 Deb Giraldo, [address], [address] , [facility] 5 10:54:18 Obstructi ve sleep apnea syndrome 90821471 Active 2022 Deb Giraldo, [address], [address] , [facility] 5 10:54:18 COVID-19 534401555 Active 2022 Deb Giraldo [address], [phone] , [facility] 3 14:07:58 Tear of medial meniscus of knee 251353035 Active 2022 Deb Giraldo [address], [address] , [facility] 3 12:52:42 Acute pain of joint of knee 61931742609 9104 Active 2022 Deb Giraldo [address], [address] , [facility] 3 12:52:43 Pain of left shoulder joint 58998615893 989094 Active 2023 Deb Giraldo [address], [address] , [facility], [place] 4 08:20:25 Nasal congestio n 27625246 Active 2024 Ed Minaya MD [address] [place] [address], [phone] , [facility], [place] 17:42:15 Acute maxillary sinusitis 43376525 Active 2024 Ed Minaya MD [address] [place] [address], [address] , [facility], [place] 17:42:15 Problem Notes None recorded. Procedures Surgical History Date Name Laterality Status Provider Name and Address Organization Details Recorded Time 11/11/20 24 total replacement of left hip joint completed ROGELIO VIZCAINO [facility], [place] 02/13/2025 10:41:59 06/26/20 24 Joint Inj [place]- Shoulder, Hip, Knee completed Eladio Tatum [facility], [place] 06/26/2024 14:49:45 08/03/20 23 Joint Inj [place]- Shoulder, Hip, Knee completed Deb Giraldo DO [address] [place] [address], [phone], [facility], [place] 08/03/2023 12:53:08 02/29/20 23 Arthrocentesis Major Joint/Bursa completed Deb Giraldo DO [address] [place] [address], [phone], [facility], LGiselleLJovan 02/28/2023 16:20:44 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 02/13/2025 10:43:33 Imaging Results None recorded. Procedure Notes None recorded. Medical Equipment None Reported. Allergies Allergen ID Allergen Name Allergen Category Reaction Reaction Severity Criticality Documentation Date Start Date Code Code System Note Provider Name and Address Organization Details Recorded Time 87708 Silvadene medicatio n rash Not available Not available 06/17/2023 62409 6 RxNorm React ion: Rash; Comme nt: Recor ded 12/26 11:46 AM by Ángela e Dawso n, Offic e Visit ; Promo finn; Signi fican ce: *; ; Not Available On license of [facility] 3 02:26:36 78603 methotrex ate medicatio n other Not available Not available 06/17/2023 6851 RxNorm React ion: Trans karen tis; Comme nt: Recor ded 12/26 11:46 AM by Ángela agustín Dawso n, Offic e Visit ; Promo finn; Signi fican ce: *; ; Not Available On license of [facility] 3 02:26:36 61789 methotrex ate medicatio n Not available Not available [facility] 10/04/20252024 6851 RxNorm Not Available [employer] - prod 18:24:11 88355 miconazol e medicatio n Not available Not available Not available 10/04/20252024 6932 RxNorm Not Available [employer] - prod 18:24:11 56343 silver sulfadiaz ine medicatio n Not available Not available Not available 10/04/20252024 9793 RxNorm Not Available [employer] - prod 18:24:11 34790 hydroxych loroquine medicatio n Not available Not available [facility] 10/04/20252024 5521 RxNorm Not Available [employer] - prod 18:24:11 20160 tofacitin ib medicatio n Not available Not available Not available 10/04/20252024 72865 36 RxNorm Not Available [place] - [employer] - prod 18:24:11 Medications Name Sig Start Date Stop Date [...] solution daily 06/10 completed 0; Recorded 12/26/19 11:46AM by Kaelyn Donovan, Office Visit; Not [...] (BMI) Body weight Respiratory rate Oxygen saturation Heart rate Body temperature Systolic And Diastolic Provider Name and Address Organization Details Last Updated DateTime 5 182.88 cm 25.1 kg/m2 08910.9 9 g 18 /min 99 % 84 /min 98.4 [degF] 142/78 mm[Hg] KAELYN SNYDER [facility] 5 09:42:54 Date Recorded Body height Oxygen saturation Heart rate Respiratory rate Body mass index (BMI) Body weight Systolic And Diastolic Provider Name and Address Organization Details Last Updated DateTime 5 182.88 cm 97 % 86 /min 18 /min 25.5 kg/m2 27983.7 7 g 124/68 mm[Hg] ROGELIO VIZCAINO [facility] 5 10:46:11 Date Recorded Body height Body mass index (BMI) Body weight Oxygen saturation Heart rate Respiratory rate Systolic And Diastolic Provider Name and Address Organization Details Last Updated DateTime 4 182.88 cm 24.9 kg/m2 33787.8 g 97 % 78 /min 18 /min 136/70 mm[Hg] Anastacia Lovelace [facility] 4 14:08:46 Date Recorded Body height Body mass index (BMI) Body weight Oxygen saturation Heart rate Respiratory rate Systolic And Diastolic Provider Name and Address Organization Details Last Updated DateTime 4 182.88 cm 25 kg/m2 51626.1 g 98 % 64 /min 20 /min 130/72 mm[Hg] Anastacia Lovelace [facility] 4 11:47:49 Date Recorded Body height Body mass index (BMI) Body weight Oxygen saturation Heart rate Body temperature Systolic And Diastolic Provider Name and Address Organization Details Last Updated DateTime 4 182.88 cm 25.2 kg/m2 50476.1 8 g 99 % 88 /min 98.1 [degF] 138/84 mm[Hg] Nimesh Benitez [facility] 4 08:29:25 Social History None recorded. Functional Status Question Answer Note LastModified by Organizat ion Details LastModified Time Do you use any illicit or recreational drugs? No [email or web address] Information not available 02/28/2023 Do you or have you ever used any other forms of tobacco or nicotine? No [email or web address] Information not available 02/28/2023 What is your level of alcohol consumption? None [email or web address] Information not available 02/28/2023 Mental Status None recorded. Family History Nothing Reported. Medical History No medical history recorded. Immunizations Vaccine Type Date Status Note Provider Nam e and Address Organization Details Recorded Time Td(adult) unspecified formulation 2 completed Not Available On license of [facility] 06/17/2023 02:38:32 Past Encounters Encounter ID Performer Location Encounter Start Date Encounter Closed Date Diagnosis/Indication Diagnosis SNOMED-CT Code Diagnosis ICD10 Code Diagnosis IMO Codes Diagnosis Note [id number] Deb Giraldo DO [facility] ([facility]) [address] [place] [phone] 02/28/2023 15:25:14 03/06/2023 15:03:56 Pain of right shoulder joint 0245298208 9897338 M25.511 Fatigue 89622705 R53.83 Osteoarthr itis of shoulder region 14950925 M19.019 injection today due to worsening pain and decreased ROM. counseled Aortic valve stenosis 60 859154 I35.0 chronic, no ECHO in more than 2 years, now with signs and symptoms, will get ECHO. 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 we obtained ECHO in february 2023 that does not show any valvular issues with normal EF. Therefore, no . 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 continue valsart Leukocytosis 968931173 D 72.829 reviewed labs with pt. he had tooth abscess at time of labs. will repeat labs in 2 wks with phone f/u Vitamin B1 2 deficiency (non anemic) 32123484 E53.8 labs 03/2023 with b12 193. pt to start OTC daily B complex. repeat labs in 6-8 wks. Obstructiv e sleep apnea syndrome 22187452 G47.33 concern for. pt with persistent fatgue, daytime sleepiness , snoring, cardiology work up ok. will get sleep study. counseled on sleep hygeine, daily exericse, and weight managemnt. Rheumatoid arthritis 698 96743 M06.9 continue care with Rheumatolo gy. [id number] Deb Giraldo DO [facility] ([facility]) [address] [place] [address] 04/25/2023 12:36:05 04/25/2023 17:02:26 Nasal congestion 67281795 R09.81 COVID-19 601259693 U07.1 COVID positive today. f/u A/B both [...] concerns, or worsening problems. Rheumatoid arthritis 698 56557 M06.9 continue care with Rheumatolo gy. [id number] Deb Giraldo DO [facility] ([facility]) [address] [place] [address] 08/03/2023 12:39:04 08/03/2023 13:06:05 Acute pain of joint of knee 8196741821 83835 M25.569 Tear of me dial meniscus of knee 412277571 S83.241A Concern for per history and exam today. Counseled patient on work-up of options and treatment options. He wishes to proceed with injection today and will monitor. Consider x-ray if no improvemen t in a week. [id number] Deb Giraldo DO [facility] ([facility]) [address] [place] [phone] 09/22/2023 11:32:51 09/25/2023 09:30:36 Pre-surgery evaluation 811145154 Z01.861 [id number] CHRISTINE GAVIN PA-C [facility] ([facility]) [address] [place] [phone] 11/10/2023 10:42:11 11/10/2023 14:13:31 Viral screening 634277870 Z11.52 neg covid Exposure t o SARS-CoV-2 619125573 Z20.822 positive today. he is starting symtpoms. [id number] Deb Giraldo DO [facility] ([facility]) [address] [place] [address] 06/26/2024 14:00:22 06/26/2024 16:20:42 Rheumatoid arthritis 34622846 M06.9 continue care with Rheumatolo gy. Vitamin B1 2 deficiency (non anemic) 64341586 E53.8 labs 03/2023 with b12 193. pt to start OTC daily B complex. repeat labs in 6-8 wks. Essential hypertension 36202501 I10 06/26/24- Stopped Valsartan on his own after significan t weightloss and BP running too low. Now taking Losartan 100mg daily. Lab today. F/u 3 weeks. Pain of le ft shoulder joint 3323824274 6854800 M25.512 I counseled pt on DX and treatment options. Pt desires to proceed with Joint injection today. Performed as documented . Pt tolerated well. counseled on limiting activity the next 24 hrs. return if problems. [id number] Deb Giraldo DO [facility] ([facility]) [address] [place], [place] [address] 07/17/2024 10:45:43 07/17/2024 17:46:47 Essential hypertension 93719798 I10 07/17/24- Improved, tolerating Losartan 100mg daily, continue to monitor and keep a log, if increasing consider changing Losartan.- Stopped Valsartan on his own after significan t weightloss and BP running too low. Now taking Losartan 100mg daily. Lab today. F/u 3 weeks. [id number] WILLIAMS LUCAS [facility] ([facility]) [address] [place] [phone] 09/11/2024 08:20:41 09/11/2024 14:24:48 Sore throat 858439619 J02.9 Acute pansinusitis 16570 02 J01.40 Discussed use of antibiotic . Take with food.May use Harley's nasal inserts and also apply on chest. Push oral fluids. Consider nasal saline rinses and otc decongesta nt.Use tylenol/mo mickey for hernandez. [id number] Ed Minaya MD [facility] ([facility]) [address] [place] [phone] 01/23/2025 09:36:58 01/23/2025 11:14:29 Nasal congestion 43938263 R09.81 COVID and flu are negative Acute maxi llary sinusitis 53450575 J01.00 Likely bacterial sinusitis based on exam and history. discussed supportive care including OTC meds and sinus rinses. we will start abx. [id number] Deb Giraldo DO [facility] ([facility]) [address] [place] [address] [place] [address] 02/13/2025 09:51:03 02/14/2025 08:08:19 Aortic valve stenosis 33145768 I35.0 hx of per pt HX. we obtained ECHO in february 2023 that does not show any valvular issues with normal EF. Therefore, no . Essential hypertension 28991055 I10 02/13/25: stable. continue losartan.- Improved, tolerating Losartan 100mg daily, continue to monitor and keep a log, if increasing consider changing Losartan.- Stopped Valsartan on his own after significan t weightloss and BP running too low. Now taking Losartan 100mg daily. Lab today. F/u 3 weeks. Rheumatoid arthritis 698 71176 M06.9 continue care with Rheumatcortney pickering. Health Concerns Section Related Observation LastModified by Organization Detai ls LastModified Time None Recorded Concern Status LastModified by Organization Details LastModified Time None Recorded Advance Directives Directive None Recorded Payers Insurance Date Sequence Insurance Name Policy Number Policy Miller Covered Member ID Miller Member ID Guarantor Name 08/11/2025 [place] - [facility] (MEDICARE) Tai Delgado [id number] Tai Delgado 08/11/2025 1 [place] Tai Delgado [id number] Tai Delgado 08/11/2025 2 [facility] (MEDICARE SUPPLEMENT) Tai Delgado [id number] Tai Delgado 08/11/2025 2 CORNELL Yabbly - PLAN F (MEDICARE SUPPLEMENT) [id number] Tai Delgado [id number] Tai Delgado 11/04/2025 [facility] Tai Delgado Notes Date Note Type Note Provider Name [...] stimulator placed. Last had B12 checked with us 03/24/23, at 193, with OZ 05/29/23, at 319. Deb Giraldo, DO [address] [place], [address], [facility], [place] 07/01/2024 08:20:40 4 text/htm l ROS as noted in the HPI Pt presents for2 week recheck on HTN. Bp running 120-140's/ 70's mostly. Taking Losartan 100mg daily, doing well, tolerating with no s/e denies any headaches or dizziness Left shoulder pain improved after joint injection. Deb Giraldo DO [address] [place] [address], [phone], [facility], [place] 07/17/2024 12:08:53 4 text/htm l Upper Respiratory [...] evening and overnight. PCP: WILLIAMS Damon [address] [place], [address], [facility], Kat. 09/11/2024 15:04:07 5 text/htm l Upper Respiratory [...] chest. He's been treating at home with Tawny and Masha/Ronni Minaya MD [address] [place] [address], [address], [facility], [place] 01/26/2025 17:42:32 5 text/htm l ROS as noted in the HPI f/u HTN checking BP daily, running 110-120/60-70. does not have log denies any chest pain, sob, BLE edema Deb Giraldo DO [address] [place], [address], [facility], [place] 02/13/2025 18:21:28
--- OUTSIDE RECORDS SUMMARY | 2025-11-14 17:12 | XMS_ITS | Encounter Summary ---
Author Organization [facility] Address [address] [place] [address] Care Team Providers Care Meat Grinder Name Role Phone Non-Staff, Physician Primary Care Provider Unava ilable Encounter Details Date Type Department Care Team (Latest Contact Info) Description 03/13/2007 Outpatient Historical [facility] Family Medicine [place] [address] [facility] [address] [place] [address] Inga Garcia, CAUSTIC LIQUOR MAKER [address] [place] [phone] Pain in Limb (Primary Dx) Social History Tobacco Use Types Packs/Day Years Used Date Smoking Tobacco: Never Assessed Sex and Gender Information Value Date Recorded Sex Assigned at Not on file 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
--- OUTSIDE RECORDS SUMMARY | 2025-11-14 17:12 | XMS_ITS | Encounter Summary ---
Author Organization [facility] Address [address] [place] [address] Care Team Providers Care Ad Writer Name Role Phone Non-Staff, Physician Primary Care Provider Unava ilable Encounter Details Date Type Department Care Team (Latest Contact Info) Description 02/09/2007 Outpatient Historical [facility] Family Medicine [place] [address] [facility] [address] [place] [address] Misael Ornelas DO NO ADDRESS ON FILE Acute Bronchitis (Primary Dx); Allergic Rhinitis, Cause Unspecified Social History Tobacco Use Types Packs/Day Years Used Date Smoking Tobacco: Never Assessed Sex and Gender Information Value Date Recorded Sex Assigned at Not on file Legal Sex Male 3:30 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
--- OUTSIDE RECORDS SUMMARY | 2025-11-14 17:13 | XMS_ITS | Encounter Summary ---
Author Organization [facility] Address [address] [place] [address] Care Team Providers Care Molder Labels Name Role Phone Non-Staff, Physician Primary Care Provider Unava ilable Encounter Details Date Type Department Care Team (Latest Contact Info) Description 01/06/2004 Outpatient Historical [facility] Medicine [place] [address] 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
--- OUTSIDE RECORDS SUMMARY | 2025-11-14 17:13 | XMS_ITS | Encounter Summary ---
Author Organization [facility] Address [address] [place] [address] Care Team Providers Care Pulp Machine Operator Name Role Phone Non-Staff, Physician Primary Care Provider Unava ilable Encounter Details Date Type Department Care Team (Latest Contact Info) Description 10/24/2002 Outpatient Historical 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
--- OUTSIDE RECORDS SUMMARY | 2025-11-14 17:13 | XMS_ITS | Encounter Summary ---
Author Organization [facility] Address [address] [place] [address] Care Team Providers Care Women'S Apparel Salesperson Name Role Phone Non-Staff, Physician Primary Care Provider Unava ilable Encounter Details Date Type Department Care Team (Latest Contact Info) Description 04/29/2002 Outpatient Historical [facility] Family Medicine [place] 104 [facility] [address] [place] [address] Chucho Aldana MD [address] [facility] [address] [place] [address] SHOULDER REGION DIS NEC (Primary Dx) Social History Tobacco Use Types Packs/Day Years Used Date Smoking Tobacco: Never Assessed Sex and Gender Information Value Date Recorded Sex Assigned at Not on file Legal Sex Male 3:30 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
--- OUTSIDE RECORDS SUMMARY | 2025-11-14 17:13 | XMS_ITS | Patient Health Record ---
Author Organization [facility] Address [address] [place] [address] Care Team Providers Care Line Pilot Name Role Phone Tony Bess DO Primary Care Provider Unavail able Sebas Jaime Unavailable [phone] Jese Lopez Unavailable [phone] Yaritza Reyes Unavailable [phone] Larisa May Unavailable [phone] Allergies Allergen (clinical drug ingredient) Drug/Non Drug Allergy documented on EMR Reaction Allergy Type Onset Date Status methotrexate Methotrexate Sodium Unknown Drug Allergy 01/2010 Active Neosporin Unknown Drug Allergy 03/22/2010 Active Neosporin AF rash Drug Allergy Acti ve silver sulfadiazine Silvadene Unknown Drug Allergy 010 Active Substance with 4-ymsqctbowmghscdmq-7- receptor antagonist mechanism of action (substance) 5HT3 Receptor Antagonists Unknown Drug Allergy 03/22/2010 Inactive Adhesive rash Allergy Active tape Unknown Allergy 03/22/2010 Active Results Component Value Reference Range Flag Notes XR Outside CD Reviewed date:11/05/2025 09:13:12 AM Interpretation: Performing Lab: Notes/Report: [id number]&org=iSite Tox Results Reviewed date:01/21/2025 10:44:16 AM Interpretation: Performing Lab: Notes/Report: Urine Drug Screen (cup read) - [id number] Reviewed date:11/05/2025 11:37:17 AM Interpretation: Performing Lab: Notes/Report: AMP - BEA - BUP - BZO - MDMA - OPI - PCP - OXY - MTD - MAMP - Urine Confirmation Panel (in strument) - [id number] Reviewed date:11/11/2025 02:49:14 PM Interpretation: Performing Lab: [...] the U.S. Food and Drug Administration. Urine Confirmation Panel (in strument) - [id number] Reviewed date:01/21/2025 10:44:16 AM Interpretation: Performing Lab: [...] by the U.S. Food and Drug Administration. Tox Results Reviewed date:11/11/2025 03:59:52 PM Interpretation: Performing Lab: Notes/Report: Urine Confirmation Panel (in strument) - [id number] Reviewed date:07/08/2025 01:26:41 PM Interpretation: Performing Lab: [...] Administration. Urine Drug Screen (cup read) - [id number] Reviewed date:07/03/2025 11:44:47 AM Interpretation: Performing Lab: Notes/Report: OPI + Urine Drug Screen (cup read) - [id number] Reviewed date:09/04/2025 12:58:50 PM Interpretation: Performing Lab: Notes/Report: OPI + XR Outside CD Reviewed date:11/05/2025 09:13:12 AM Interpretation: Performing Lab: Notes/Report: The report for this exam was dictated at [facility] . FINAL REPORT Read The report for this exam was dictated at [facility] . Tox Results Reviewed date:07/08/2025 02:55:17 PM Interpretation: Performing Lab: Notes/Report: Urine Drug Screen (cup read) - [id number] Reviewed date:03/13/2025 10:09:16 AM Interpretation: Performing Lab: Notes/Report: OPI + Reason For Referral Reason Postoperative rehabi litation: Twice a week, 6-8 we Diagnosis 1 Status post total hi p replacement, 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) Referral Organization [facility] Referring Provider First Name Jese Referring Provider Last Name John Referring Provider Speciality Orthopedic Surgery Referred Provider [facility] Referred Provider Specialty Physical The rapist Referral Priority Routine Reason R shoulder Diagnosis 1 Pain in right should er (M25.511) Referring Provider First Name Larisa Referring Provider Last Name Lalo Referring Provider Speciality Pain Medic ine Referred Organization [facility] Referred Provider Jese Lopez Referred Address [address],[address] Referral Priority Routine Reason R shoulder Diagnosis 1 Pain in right should er (M25.511) Referral Organization [facility] Referring Provider First Name Larisa Referring Provider Last Name Lalo Referring Provider Speciality Pain Medic ine Referred Organization [facility] Referred Provider Jese Lopez Referred Address [address],[address],[place] Referred Provider Specialty Orthopedic S urgery Referral Priority Routine Reason Evaluate and treat Diagnosis 1 Status post total re placement of right shoulder (Z96.611) Referral Organization [facility] Referring Provider First Name Jese Referring Provider Last Name John Referring Provider Speciality Orthopedic Surgery Referred Provider [place] Referred Provider Specialty Orthopedic S urgery Referral Priority Routine Medications Medication SIG (Take, Route, Frequency, Duration) Notes Start Date End Date Status Aspirin *[facility]* Unknown Limbrel 500 mg Capsule Take 1 capsule(s) by mouth q12h Oral; Duration: 30 Limbrel 500mg Capsules Take 1 capsule(s) by mouth q12h 03/22/2010 Unknown Osteo Bi-Flex *Reorder from [facility] for eRx and Interaction Alerts* Unknown Pantoprazole Sodium 40 MG Tablet Delayed Release Oral; Duration: 90 Days Unknown predniSONE 20 MG Tablet Oral; Duration: 30 Days Unknown tiZANidine HCl 4 MG Tablet TAKE 1 TABLET BY MOUTH TWICE A DAY Oral; Duration: 30 Days Unknown Vitamin D3 1000 UNIT Capsule 1 capsule Orally Once a day Unknown HYDROcodone-Acetamin ophen 7.5-325 MG Tablet 1 tablet Orally every 6 hrs; Duration: 30 days Do not exceed 4 per day Fill on 12/15/2025 11/05/2025 01/14/2026 Active Glucosamine HCl 1,500 mg Tablet Take 1 tablet(s) by mouth daily Oral; Duration: 30 *please review for potential update for e-prescription and drug interaction check* Glucosamine 1,500mg Tablet Take 1 tablet(s) by mouth daily 03/22/2010 Unknown PreserVision AREDS *Pick strength-form from [facility] for eRX* Unknown HYDROcodone-Acetamin ophen 7.5-325 MG Tablet 1 tablet Orally every 6 hrs; Duration: 30 days Do not exceed 4 per day Fill on 11/15/2025 or few days early due to weekend/holiday fill 11/05/2025 12/15/2025 Active Valsartan *Pick strength-form from [facility] for eRX* Unknown Losartan Potassium 100 MG Tablet TAKE 1 TABLET BY MOUTH EVERY DAY Oral; Duration: 57 Days Unknown Ventolin HFA 108 (90 Base) MCG/ACT Aerosol Solution Inhale 1 to 2 puff(s) by mouth q 4 to 6 hr prn Inhalation; Duration: 30 Ventolin HFA 90mcg/1actuation Oral Inhaler Inhale 1 to 2 puff(s) by mouth q 4 to 6 hr prn 03/22/2010 Unknown Orencia Unknown Aspirin 81 MG Tablet Chewable 2 tab(s) po q pm Oral; Duration: 30 Aspirin (ASA) 81mg Chewable Tablet 2 tab(s) po q pm #100 (One [place]) tablet(s) 03/22/2010 Unknown B Complex Unknown Eye [...] Notes Problem Chronic pain due to injury (877115544) 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) 05/14/20 24 Active confirmed Problem Chronic pain syndrome (255971669) Chronic pain syndrome (G89.4) 05/14/20 24 Active confirmed Problem Cervicalgia (75375028) Cervicalgia (M54.2) 05/14/20 24 Active confirmed Problem Abnormal gait (79411619) Unspecified abnormalities of gait and mobility (R26.9) 05/14/20 24 Active confirmed Problem High risk drug monitoring status (185223841) 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 analgesic (Z79.891) Active confirmed Problem Arthritis of left hip (40603393100075 05) Arthritis of left hip (M16.12) Active confirmed Problem History of total replacement of left hip joint (84238327249351 05) Status post total hip replacement, 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) Active confirmed Problem 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) Active confirmed Problem Total hip replacement Prosthesis (072737528) S/P total right hip arthroplasty (Z96.641) Active confirmed Problem Rheumatoid arthritis (45279213) 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 (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) Active confirmed Problem Visual disturbance (29853081) Unspecified visual disturbance (368.9) 04/07/20 11 Active confirmed [id number] 11- Problem Rheumatoid arthritis (91260739) Rheumatoid arthritis (714.0) 03/22/20 10 Active confirmed [id number] 11- Problem Essential hypertension (52423458) Essential hypertension (401.1) 03/22/20 10 Active confirmed [id number]- Problem Headache (89999622) Headache (307.81) 04/07/20 11 Problem resolved confirmed [id number] 11- Problem Atypical mole syndrome (923643325) Atypical mole (238.2) 03/22/20 10 Problem resolved confirmed [id number] 11- Problem Celiac artery compression syndrome (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) 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) 03/22/20 10 Problem resolved confirmed [id number] 11- Vital Signs Heart Rate 63 /min 08/08/2025 Blood pressure diastolic 78 mm Hg 08/08/2025 Oximetry 98 % 08/08/2025 Height-cm 182.88 cm 11/05/2025 Weight-kg 80.74 kg 11/05/2025 Height 72 in 11/05/2025 Blood pressure systolic 124 mm Hg 08/08/2025 Weight 178 lbs 11/05/2025 BMI 24.14 kg/m2 11/05/2025 Encounters Encounter Location Date Provider Diagnosis [facility] [place] [address] [place] [address] 11/05/2025 Sebas Jaime Chronic pain due to trauma G89.21 ; Cervicalgia M54.2 ; 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 M05.752 ; Pain in right shoulder M25.511 ; 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 analgesic Z79.891 and Unspecified abnormalities of gait and mobility R26.9 [facility] [address] [place] [address] 10/31/2025 Jese Lopez Status post total hip replacement, left Z96.642 [facility] [place] [address] [place] [address] 09/04/2025 Larisa May Chronic pain due to trauma G89.21 ; Cervicalgia M54.2 ; 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 M05.752 ; Pain in right shoulder M25.511 ; Unspecified abnormalities of gait and mobility R26.9 and 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 analgesic Z79.891 [facility] [address] [place] [address] 08/08/2025 Jese Lopez Status post total replacement of right shoulder Z96.611 [facility] [place] [address] [place] [address] 07/03/2025 Larisa May Chronic pain due to trauma G89.21 ; Cervicalgia M54.2 ; 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 M05.752 ; Pain in right shoulder M25.511 ; Unspecified abnormalities of gait and mobility R26.9 and snf (current) use of opiate analgesic Z79.891 [facility] [address] [place] [address] 06/27/2025 Jese Lopez Status post total hip replacement, left Z96.642 [facility] [place] [address] [place] [address] 05/07/2025 Sebas Jaime Chronic pain due to trauma G89.21 ; Cervicalgia M54.2 ; 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 M05.752 ; Pain in right shoulder M25.511 ; Unspecified abnormalities of gait and mobility R26.9 and 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 analgesic Z79.891 [facility] [place] [address] [place] [address] 03/13/2025 Larisa May Chronic pain due to trauma G89.21 ; Cervicalgia M54.2 ; 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 M05.752 ; Pain in right shoulder M25.511 ; Unspecified abnormalities of gait and mobility R26.9 and snf (current) use of opiate analgesic Z79.891 [facility] [place] [address] [place] [address] 01/16/2025 Larisa May Chronic pain due to trauma G89.21 ; Cervicalgia M54.2 ; 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 M05.752 ; Pain in right shoulder M25.511 ; Unspecified abnormalities of gait and mobility R26.9 and snf (current) use of opiate analgesic Z79.891 [facility] [address] [place] [place] [address] 12/27/2024 Jese Lopez Status post total hip replacement, left Z96.642 [facility] [address] [place] [place] [address] 11/22/2024 Jese Lopez Status post total replacement of left hip Z96.642 [facility] [address] [place] [place] [address] 01/16/2025 Yaritza reed [facility] [address] [place] [address] 01/14/2025 Jese [facility] [address] [place] [address] 12/23/2024 Jese [facility] [address] [place] [address] 12/17/2024 Jese Lopez S/P total right hip arthroplasty Z96.641 [facility] [address] [place] [address] 12/16/2024 Jese [facility] [place] [address] [place] [place] [address] 09/04/2025 Sebas Krafft Pain in right shoulder M25.511 [facility] [address] [place] [address] 08/25/2025 Jese [facility] [place] [address] [place] [address] 07/03/2025 Sebas Krafft Pain in right shoulder M25.511 [facility] [place] [address] [place] [place] [address] 03/13/2025 Sebas Jaime [facility] [address] [place] [address] 02/11/2025 Jese Lopez Assessments Encounter Date Diagnosis [...] up in a month and proceed accordingly. 12/17/2024 S/P total right hip arthroplasty (ICD-10 - Z96.641) 12/27/2024 Status post total hip replacement, left (ICD-10 - Z96.642) Lexus is is about 2-1/2 months out on left total hip replacement. I am going to go ahead and order some further physical therapy for him. I think it will help. I will also renew his analgesic medication. We will recheck in about 6 months. 05/07/2025 Chronic pain due to trauma (ICD-10 - G89.21) I had a nice visit with the patient today regarding his chronic pain issues. He had a trip recently to the [facility], and he did have some increased pain [...] him back in a couple of months. 06/27/2025 Status post total hip replacement, left (ICD-10 - Z96.642) This individual functionally is doing extremely well. His hip replacement has given him a pain-free hip and he is doing all activities that he wishes. I would like to see him back in 4 months. Will get an x-ray of his left hip. That will be basically a year out from his surgery. 07/03/2025 Chronic pain due to trauma (ICD-10 [...] effects are noted. Last UDS and [place] CHROME TANNER reviewed today. Patient is advised that best [...] to abide by our urine testing policy. 09/04/2025 Pain in right shoulder (ICD-10 - M25.511) 10/31/2025 Status post total hip replacement, left (ICD-10 - Z96.642) This individual is doing extraordinarily well with his total hip replacement. He is getting along quite well with and without pain. His x-rays look excellent. We will recheck in 1 year with x-ray. 11/22/2024 Status post total replacement of left [...] see him in 4 weeks with x-rays. 11/05/2025 Cervicalgia (ICD-10 - M54.2) 09/04/2025 Chronic pain due to trauma (ICD-10 - G89.21) I had a nice discussion with the patient today regarding his chronic pain complaints. He does report that he seen Dr. Lopez regarding his shoulder and states Dr. Lopez was not comfortable doing anything with that so has referred him to a shoulder specialist in [place]. He will keep us updated on this. [...] effects are noted. Last UDS and [place] CHROME TANNER reviewed today. Patient is advised that best [...] has been made aware of this policy. 08/08/2025 Status post total replacement of right [...] Pain in right shoulder (ICD-10 - M25.511) 03/13/2025 Chronic pain due to trauma (ICD-10 [...] effects are noted. Last UDS and [place] CHROME TANNER reviewed today. Patient is advised that best [...] has been made aware of this policy. 01/16/2025 Chronic pain due to trauma (ICD-10 [...] effects are noted. Last UDS and [place] CHROME TANNER reviewed today. Patient is advised that best long-term goals include increased activity, core strengthening, proper weight management, coping strategies, avoidance of painful triggers, and targeted interventional therapy. We will see the patient for routine follow up in accordance with all clinic policies. We did remind patient today of current guidelines to decrease opioid when possible. We will continue to stress nonopioid treatment. 01/16/2025 Cervicalgia (ICD-10 - M54.2) 03/13/2025 Cervicalgia (ICD-10 - M54.2) 09/04/2025 Cervicalgia (ICD-10 - M54.2) 11/05/2025 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 (ICD-10 - M05.752) 05/07/2025 Cervicalgia (ICD-10 - M54.2) 07/03/2025 Cervicalgia (ICD-10 - M54.2) 05/07/2025 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 (ICD-10 - M05.752) 07/03/2025 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 (ICD-10 - M05.752) 09/04/2025 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 (ICD-10 - M05.752) 03/13/2025 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 (ICD-10 - M05.752) 11/05/2025 Pain in right shoulder (ICD-10 - M25.511) 01/16/2025 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 (ICD-10 - M05.752) 01/16/2025 Pain in right shoulder (ICD-10 - M25.511) 03/13/2025 Pain in right shoulder (ICD-10 - M25.511) 11/05/2025 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 09/04/2025 Pain in right shoulder (ICD-10 - M25.511) 07/03/2025 Pain in right shoulder (ICD-10 - M25.511) 05/07/2025 Pain in right shoulder (ICD-10 - M25.511) 05/07/2025 Unspecified abnormalities of gait and mobility (ICD-10 - R26.9) 07/03/2025 Unspecified abnormalities of gait and mobility (ICD-10 - R26.9) 09/04/2025 Unspecified abnormalities of gait and mobility (ICD-10 - R26.9) 11/05/2025 Unspecified abnormalities of gait and mobility (ICD-10 - R26.9) 03/13/2025 Unspecified abnormalities of gait and mobility (ICD-10 - R26.9) 01/16/2025 Unspecified abnormalities of gait and mobility (ICD-10 - R26.9) 01/16/2025 snf (current) use of opiate analgesic (ICD-10 - Z79.891) 03/13/2025 snf (current) use of opiate analgesic (ICD-10 - Z79.891) 09/04/2025 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 05/07/2025 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 analgesic (ICD-10 - Z79.891) 11/05/2025 Other Khushbu Nair am scribing for Dr. Sebas Jaime. I, Dr. Sebas Jaime, personally performed the services described in this documentation, as scribed by Khushbu Sharp, and it is both accurate and complete. 05/07/2025 Other Mini Nair NCMA, am scribing for Dr. Sebas Jaime. I, Dr. Sebas Jaime, personally performed the services described in this documentation, as scribed by DORYS Lopez, and it is both accurate and complete. Plan Of Treatment Pending Test Test Name Order Date Uni Hip, Pelvis 1V 10/03/2024 Electrocardiogram 12 Lead Tracing (EKG)- [id number] 10/31/2024 Chest AP/Lateral 10/31/2024 Future Test Test Name Order Date zzzUrine Drug Screen (confirmation by in strument) - [id number] 01/16/2025 Next Appt Details Provider Name:Sebas Jaime, 01/07/2026 09:40:00 AM, [address] [place], [address], Insurance Providers Payer Name Payer Address Payer Phone Subscriber Number Group Number Insured Name Patient Relationship to Insured Coverage Start Date Coverage End Date [employer] - WORK COMP [id number] [place] [address] [id number] Tai Delgado Self - patient is the insured [facility] [address] [place] [address] [id number] Tai Delgado Self - patient is the insured [place] Medicare [address] [address] [place] [address] [id number] Tai Delgado Self - patient is the insured Medical (General) History Medical History History ICD Code Positive forHypertension: dx 'd in 2008; uncontrolled; ; Positive forAsthma: dx'd in 2008; moderate severity; ; Positive forRheumatoid Arthritis: since 2007; primarily affecting the fingers, hips, knees, and feet; ; Arthritis High Blood Pressure bronchitis Surgical History Surgery Date(Month/Year) right shoulder surgery x7 left knee unspecified left elbow unspecified right [facility] Hospitalization History Reason Date(Month/Year) right shoulder
--- OUTSIDE RECORDS SUMMARY | 2025-11-14 17:13 | XMS_ITS | Encounter Summary ---
Author Organization [facility] Address [address] [place] [address] Care Team Providers Care Coring Machine Operator Name Role Phone Non-Staff, Physician Primary Care Provider Unava ilable Encounter Details Date Type Department Care Team (Latest Contact Info) Description 01/02/2003 Outpatient Historical [facility] Medicine [place] [address] [facility] [address] [place] [address] Tali Lantigua MD NO ADDRESS ON FILE ACUTE PHARYNGITIS (Primary Dx); ACUTE SINUSITIS NOS Social History Tobacco Use Types Packs/Day Years Used Date Smoking Tobacco: Never Assessed Sex and Gender Information Value Date Recorded Sex Assigned at Not on file 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
--- OUTSIDE RECORDS SUMMARY | 2025-11-14 17:13 | XMS_ITS | Encounter Summary ---
Author Organization [facility] Address [address] [place] [address] Care Team Providers Care Media Relations Manager Name Role Phone Non-Staff, Physician Primary Care Provider Unava ilable Encounter Details Date Type Department Care Team (Latest Contact Info) Description 08/05/2003 Outpatient Historical [facility] Medicine [place] [address] [facility] [address] [place] [address] Misael Ornelas DO NO ADDRESS ON FILE ACUTE PHARYNGITIS (Primary Dx); ALLERGIC RHINITIS NOS Social History Tobacco Use Types Packs/Day Years Used Date Smoking Tobacco: Never Assessed Sex and Gender Information Value Date Recorded Sex Assigned at Not on file 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
--- OUTSIDE RECORDS SUMMARY | 2025-11-14 17:13 | XMS_ITS | Encounter Summary ---
Author Organization [facility] Address [address] [place] [address] Care Team Providers Care Skin Former Name Role Phone Non-Staff, Physician Primary Care Provider Unava ilable Encounter Details Date Type Department Care Team (Latest Contact Info) Description 07/29/2002 Outpatient Historical [facility] [address] [place] [address] Chucho Aldana MD [address] [facility] [address] [place] [address] DERMATITIS OTHER NEC (Primary Dx) Social History Tobacco Use Types Packs/Day Years Used Date Smoking Tobacco: Never Assessed Sex and Gender Information Value Date Recorded Sex Assigned at Not on file 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
--- OUTSIDE RECORDS SUMMARY | 2025-11-14 17:13 | XMS_ITS | Encounter Summary ---
Author Organization [facility] Address [address] [place] [address] Care Team Providers Care Design Engineer Marine Equipment Name Role Phone Non-Staff, Physician Primary Care Provider Unava ilable Encounter Details Date Type Department Care Team (Latest Contact Info) Description 01/02/2004 Outpatient Historical [facility] [place] [address] [facility] [address] [place] [address] Tali Lantigua MD NO ADDRESS ON FILE ACUTE BRONCHITIS (Primary Dx); ASTHMA UNSPECIFIED Social History Tobacco Use Types Packs/Day Years Used Date Smoking Tobacco: Never Assessed Sex and Gender Information Value Date Recorded Sex Assigned at Not on file 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
--- OUTSIDE RECORDS SUMMARY | 2025-11-14 17:13 | XMS_ITS | Clinical Summary ---
Author Organization [facility] Address [address] 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 Gender Identity Not on file Sexual Orientation Not on file Last Filed Vital Signs Vital Sign Reading Time Taken Comments Blood Pressure 122/78 11/03/2014 10:43 AM SPORTS THERAPIST Pulse 78 11/03/2014 10:43 AM SPORTS THERAPIST Temperature 36.6 C (97.9 F) 11/03/2014 10:43 AM SPORTS THERAPIST Respiratory Rate 16 11/03/2014 10:43 AM SPORTS THERAPIST Oxygen Saturation 95% 11/03/2014 10:43 AM SPORTS THERAPIST Inhaled Oxygen Concentration - - Weight 90.7 kg (200 lb) 11/03/2014 10:43 AM SPORTS THERAPIST Height 182.9 cm (6') 11/03/2014 10:43 AM SPORTS THERAPIST Body Mass Index 27.12 11/03/2014 10:43 AM SPORTS THERAPIST Plan of Treatment Health Maintenance Due Date [...] 2038 Insurance MEDICARE PART A AND B [facility] Care Teams Angle Shear Operator Relationship Specialty Start Date End Date Non-Staff, Physician NO ADDRESS ON FILE PCP - General 04/15/08
--- OUTSIDE RECORDS SUMMARY | 2025-11-14 17:13 | XMS_ITS | Encounter Summary ---
Author Organization [facility] Address [address] [place] [address] Care Team Providers Care Supervisor Farm Equipment Maintenance Name Role Phone Non-Staff, Physician Primary Care Provider Unava ilable Encounter Details Date Type Department Care Team (Latest Contact Info) Description 08/12/2002 Outpatient Historical [facility]- [place] [address] [place] [address] Tali Lantigua MD NO ADDRESS ON FILE ACUTE SINUSITIS NOS (Primary Dx); ACUTE BRONCHITIS Social History Tobacco Use Types Packs/Day Years Used Date Smoking Tobacco: Never Assessed Sex and Gender Information Value Date Recorded Sex Assigned at Not on file 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
--- OUTSIDE RECORDS SUMMARY | 2025-11-14 17:13 | XMS_ITS | Encounter Summary ---
Author Organization [facility] Address [address] [place] [address] Care Team Providers Care Stripping Shovel Operator Name Role Phone Non-Staff, Physician Primary Care Provider Unava ilable Encounter Details Date Type Department Care Team (Latest Contact Info) Description 03/31/2004 Outpatient Historical [address] [address] Inga Garcia, PRINTING EQUIPMENT MECHANIC APPRENTICE [address] [place] [address] DERMATITIS OTHER NEC (Primary Dx) Social History Tobacco Use Types Packs/Day Years Used Date Smoking Tobacco: Never Assessed Sex and Gender Information Value Date Recorded Sex Assigned at Not on file 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
--- OUTSIDE RECORDS SUMMARY | 2025-11-14 17:13 | XMS_ITS | Encounter Summary ---
Author Organization [facility] Address [address] [place] [address] Care Team Providers Care Social Service Technician Name Role Phone Non-Staff, Physician Primary Care Provider Unava ilable Encounter Details Date Type Department Care Team (Latest Contact Info) Description 07/29/2003 Outpatient Historical [facility] General Surgery [place] [address] [address] [address] [place] [phone] [place] [address] [facility] [address] [place] [address] SURGERY FOLLOWUP, UNSPEC (Primary Dx) Social History Tobacco Use Types Packs/Day Years Used Date Smoking Tobacco: Never Assessed Sex and Gender Information Value Date Recorded Sex Assigned at Not on file 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
--- OUTSIDE RECORDS SUMMARY | 2025-11-14 17:13 | XMS_ITS | Encounter Summary ---
Author Organization [facility] Address [address] [place] [address] Care Team Providers Care Architectural Model Maker Name Role Phone Non-Staff, Physician Primary Care Provider Unava ilable Encounter Details Date Type Department Care Team (Latest Contact Info) Description 12/08/2005 Outpatient Historical [facility] Family Medicine [place] [address] 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
--- OUTSIDE RECORDS SUMMARY | 2025-11-14 17:13 | XMS_ITS | Encounter Summary ---
Author Organization [facility] Address [address] [place] [address] Care Team Providers Care Gut Puller Name Role Phone Non-Staff, Physician Primary Care Provider Unava ilable Encounter Details Date Type Department Care Team (Latest Contact Info) Description 07/11/2003 Outpatient Historical [facility] General Surgery [address] [address] [address] [place] [phone] [place] [address] [facility] [address] [place] [address] UNCERTAIN BEHAV NEOPL SKIN (Primary Dx) Social History Tobacco Use Types Packs/Day Years Used Date Smoking Tobacco: Never Assessed Sex and Gender Information Value Date Recorded Sex Assigned at Not on file 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
--- OUTSIDE RECORDS SUMMARY | 2025-11-14 17:13 | XMS_ITS | Encounter Summary ---
Author Organization [facility] Address [address] [place] [address] Care Team Providers Care Document Clerk Name Role Phone Non-Staff, Physician Primary Care Provider Unava ilable Encounter Details Date Type Department Care Team (Latest Contact Info) Description 02/13/2002 Outpatient Historical [facility] Medicine [place] [address] [facility] 60 [place] [address] Tali Lantigua MD NO ADDRESS ON FILE ACUTE SINUSITIS NOS (Primary Dx) Social History Tobacco Use Types Packs/Day Years Used Date Smoking Tobacco: Never Assessed Sex and Gender Information Value Date Recorded Sex Assigned at Not on file 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
--- OUTSIDE RECORDS SUMMARY | 2025-11-14 17:13 | XMS_ITS | Encounter Summary ---
Author Organization [facility] Address [address] [place] [address] Care Team Providers Care Estate Planner Name Role Phone Non-Staff, Physician Primary Care Provider Unava ilable Encounter Details Date Type Department Care Team (Latest Contact Info) Description 12/26/2003 Outpatient Historical [facility] Family Medicine [place] [address] [facility] [address] [place] [address] Chucho Aldana MD [address] [address] OTHER PSORIASIS (Primary Dx); ANXIETY STATE NOS; ACUTE SINUSITIS NOS; TENSION HEADACHE Social History Tobacco Use Types Packs/Day Years Used Date Smoking Tobacco: Never Assessed Sex and Gender Information Value Date Recorded Sex Assigned at Not on file 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
--- OUTSIDE RECORDS SUMMARY | 2025-11-14 17:13 | XMS_ITS | Encounter Summary ---
Author Organization [facility] Address [address] [place] [address] Care Team Providers Care Biomedical Photographer Name Role Phone Non-Staff, Physician Primary Care Provider Unava ilable Encounter Details Date Type Department Care Team (Latest Contact Info) Description 09/26/2002 Outpatient Historical [facility] [place] [address] [facility] [address] [place] [address] Misael Ornelas, DO NO ADDRESS ON FILE ACUTE MAXILLARY SINUSITIS (Primary Dx) Social History Tobacco Use Types Packs/Day Years Used Date Smoking Tobacco: Never Assessed Sex and Gender Information Value Date Recorded Sex Assigned at Not on file 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
--- OUTSIDE RECORDS SUMMARY | 2025-11-14 17:13 | XMS_ITS | Encounter Summary ---
Author Organization [facility] Address [address] [place] [address] Care Team Providers Care Business Continuity Coordinator Name Role Phone Non-Staff, Physician Primary Care Provider Unava ilable Encounter Details Date Type Department Care Team (Latest Contact Info) Description 07/18/2003 Outpatient Historical [facility] General Surgery [address] [address] [address] [place] [phone] [place] [address] [facility] [address] [place] [address] UNCERTAIN BEHAV NEOPL SKIN (Primary Dx) Social History Tobacco Use Types Packs/Day Years Used Date Smoking Tobacco: Never Assessed Sex and Gender Information Value Date Recorded Sex Assigned at Not on file 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
--- OUTSIDE RECORDS SUMMARY | 2025-11-14 17:13 | XMS_ITS | Encounter Summary ---
Author Organization [facility] Address [address] [place] [address] Care Team Providers Care Cook Short Order Name Role Phone Non-Staff, Physician Primary Care Provider Unava ilable Encounter Details Date Type Department Care Team (Latest Contact Info) Description 07/18/2003 Outpatient Historical [email or web address] [address] [place] [address] [place] [phone] [place] [address] [facility] [address] [place] [address] BENIGN ANN MARIE SKIN ARM (Primary Dx) Social History Tobacco Use Types Packs/Day Years Used Date Smoking Tobacco: Never Assessed Sex and Gender Information Value Date Recorded Sex Assigned at Not on file 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
[2025-11-14 17:17] VITALS: BMI 24.4
--- NOTE | 2025-11-14 18:08 | XRR_ITS ---
PROCEDURE INFORMATION: Exam: XR Left Ribs with PA Chest Exam date and time: 11/14/2025 6:11 PM Age: 60 years old Clinical indication: Injury or trauma; Fall; Rib area, left side; Blunt trauma TECHNIQUE: Imaging protocol: Radiologic exam of the left ribs with PA chest. Views: 3 views COMPARISON: CR XR chest 2V* [id number] 09/22/2023 10:57 AM FINDINGS: Lungs: Unremarkable. No infiltrate or consolidation. Pleural spaces: Unremarkable. No pleural effusion. No pneumothorax. Heart/Mediastinum: Unremarkable. No cardiomegaly. Bones/joints: Partially visualized right shoulder prosthesis. A nondisplaced fracture seen involving the anterior 10th rib on the left. This is best identified on images labeled 1003 and 1005. No displaced rib fracture seen. XR/XR ribs LT mn 3V w [id number] IMPRESSION: Nondisplaced fracture involving the anterior 10th rib on the left.
--- NOTE | 2025-11-14 18:08 | W.ED.FALL ---
HPI - Fall General: Chief Complaint: Fall Stated Complaint: fall / abd pain / lt hip Time Seen by Provider: 11/14/25 17:43 Source: patient Mode of arrival: ambulatory Limitations: no limitations History of Present Illness: Patient is a 60-year-old male who presents to ED today with complaint of left rib pain following a fall. 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 He feels like he heard his left ribs pop/crack. He states he is having pain with deep inhalation but otherwise does not feel short of breath. Feels like he also landed onto his left hip but has normal range of motion here and is ambulatory without difficulty or assistance. He does not complain of abdominal pain. No other injuries or complaints. MD complaint: fall Onset (ago): hour(s) Fall from: standing Fall witnessed: no Place fall occurred: home Loss of consciousness: None Prolonged down time: no Symptoms prior to fall: none Context: tripped/slipped Location of injury: chest Associated symptoms-after fall: Reports no associated symptoms and chest pain (L rib pain); Denies abdominal pain, difficulty walking, headache(s), hematuria, lightheadedness or neck pain Related Data Home Medications ?Medication ?Instructions ?Recorded ?Confirmed aspirin 81 mg tablet,delayed 81 mg PO BID 12/07/19 08/12/25 release (Adult Low Dose Aspirin) glucosamine HCl 1,500 mg tablet 1,500 mg PO ONCE 12/07/19 08/12/25 vitamins A,C,L-rhle-jomloe 4,296 1 cap PO DAILY 10/27/20 08/12/25 mcg-226 mg-90 mg capsule (ICaps AREDS) vitamin B complex 1 cap PO DAILY 05/29/23 08/12/25 abatacept (with maltose) [Orencia IV 08/31/23 08/12/25 (with maltose)] losartan 100 mg tablet 100 mg PO DAILY 10/07/24 08/12/25 Previous Rx's ?Medication ?Instructions ?Recorded hydrocodone 7.5 mg-acetaminophen 1 tab PO BID PRN pain 30 days #60 11/30/21 325 mg tablet tabs diclofenac sodium 1 % topical gel 2 g topical QID #100 grams 03/31/25 pantoprazole 40 mg tablet,delayed See Rx Instructions .Route 08/12/25 release .COMPLEX #180 tabs prednisone 5 mg tablet 5 mg PO DAILY #90 tabs 08/12/25 prednisone 20 mg tablet See Rx Instructions PO .COMPLEX 08/14/25 PRN joint pain flare #30 tabs mupirocin 2 % topical ointment 1 applic topical BID #22 grams 10/04/25 hydrocodone 10 mg-acetaminophen 1 tab PO .q 4-6 PRN pain #15 tabs 11/14/25 325 mg tablet ibuprofen 800 mg tablet 800 mg PO Q8H PRN pain #20 tabs 11/14/25 Allergies Allergy/AdvReac Type Severity Reaction Status Date / Time methotrexate Allergy Severe other Verified 08/12/25 10:42 adhesive Allergy Unknown Verified 08/12/25 10:42 miconazole (From Neosporin Allergy Unknown Verified 08/12/25 10:42 AF) silver sulfadiazine (From Allergy ALGY-Rash Verified 08/12/25 10:42 Silvadene) hydroxychloroquine AdvReac Intermediate tinnitis Verified 08/12/25 10:42 tofacitinib (From Xeljanz) AdvReac gastric Verified 08/12/25 10:42 c/o's and tight feeling in abdomen Review of Systems Card: Reports: chest pain (L rib pain); Denies: lightheadedness, syncope or pre-syncope Resp: Reports: pain on inspiration; Denies: dyspnea, productive cough, non-productive cough, wheezing, hemoptysis or chest congestion GI: Denies: abdominal pain : Denies: flank pain or hematuria Musc: Denies: neck pain or back pain Neuro: Denies: headache(s), numbness in extremities, weakness in extremities, sensory changes or difficulty walking PFSH ED PFSH: Medical History Plaque psoriasis in remission Chronic steroid use Seropositive rheumatoid arthritis of multiple sites High risk medication use Rheumatoid arthritis with rheumatoid factor Immunization counseling Encounter for long-term use of opiate analgesic Chronic right shoulder pain Cervical disc syndrome Seropositive rheumatoid arthritis Surgical History S/P shoulder surgery RIGHT X7 S/P appendectomy S/P vasectomy Family History Grandfather Leukemia Grandmother Stomach cancer Other Cancer Heart disease Denies family history of Rheumatoid arthritis Diabetes Lupus Hypertension Social History Smoking and tobacco/nicotine status: former use of tobacco/nicotine Quit status (tobacco/nicotine): has quit using Year quit tobacco: 1992 Former quit date comment: smokes cigars occasional Second hand smoke exposure: No Alcohol intake: current Alcohol intake frequency: holidays/special occasions only Alcohol type: wine Substance/Drug Use: never Physical Exam Const: COMMON NORMALS: no acute distress, average body habitus, patient oriented x3, no limitations, healthy appearing, alert and well nourished GENERAL APPEARANCE: cooperative ORIENTATION/CONSCIOUSNESS: Yes awake, Yes oriented to person, Yes oriented to place and Yes oriented to time HENMT: COMMON NORMALS: normocephalic and atraumatic HEAD & SCALP: normal to inspection, normocephalic and atraumatic Neck/C-Spine: COMMON NORMALS: full ROM CERVICAL SPINE: No Cervical spine tenderness Chest: COMMONS NORMALS: normal inspection of the chest OTHER: TTP L anteriolateral lower L ribs; no crepitus; normal lung sounds Resp: COMMON NORMALS: normal respiratory effort and clear to auscultation bilaterally AUSCULTATION: clear to auscultation bilaterally Cardio: COMMON NORMALS: regular rate and regular rhythm RATE: regular rate RHYTHM: regular rhythm GI: COMMON NORMALS: Normal to inspection, nondistended, normoactive bowel sounds present, Soft to palpation, non-tender, No hepatosplenomegaly present and no masses PALPATION: Yes Soft to palpation and Yes No hepatosplenomegaly present : COMMON NORMALS: Yes no CVA tenderness BLADDER/KIDNEY EXAM: Yes no CVA tenderness Back/Pelvis: COMMON NORMALS: no CVA tenderness, thoracic and lumbar spine normal to inspection and no thoracic nor lumbar tenderness Extremity: COMMON NORMALS: normal to inspection and full ROM GENERAL: Yes normal exam except as noted Neuro: COMMON NORMALS: patient oriented x3 and gait normal SENSORIUM/ORIENTATION: Yes alert, Yes oriented to person, Yes oriented to place and Yes oriented to time Skin: TRAUMA: no lacerations or abrasions Course Vital Signs: Vital signs: Vital Signs Temperature 97.8 F 11/14/25 17:10 Pulse Rate 64 11/14/25 20:01 Respiratory Rate 17 11/14/25 17:10 Blood Pressure 142/7 11/14/25 20:01 Pulse Oximetry 99 11/14/25 20:01 Oxygen Delivery Me thod Room Air 11/14/25 17:10 MDM - Fall Medical Decision Making L rib films/CXR showing a nondisplaced fracture involving the anterior 10th rib. Patient chronically takes hydrocodone at home and states he took 1 prior to arrival which did not help with his discomfort. Is asking for something stronger. Will increase him to hydrocodone 10/325 mg and have him start doing this with 800 mg ibuprofen in addition to ice and heat. He was given strict return to ED precautions regarding worsening pain or shortness of breath or difficulty breathing or abdominal pain/bruising. Otherwise I would like him to follow-up with primary care next week for reevaluation. Medical Records I reviewed the patient's medical records. Lab Data Radiology Impressions Ribs X-Ray 11/14/25 18:08 IMPRESSION: Nondisplaced fracture involving the anterior 10th rib on the left. All radiology interpretation(s) finalized by discharge Discharge Plan Discharge Patient Disposition: Home Clinical Impression: Fracture of left tenth rib Condition: Stable Prescriptions: New hydrocodone-acetaminophen 10-325 mg tablet 1 tab PO .q 4-6 PRN (Reason: pain) Qty: 15 0RF ibuprofen 800 mg tablet 800 mg PO Q8H PRN (Reason: pain) Qty: 20 0RF No Action aspirin [Adult Low Dose Aspirin] 81 mg tablet,delayed release (DR/EC) 81 mg PO BID glucosamine HCl 1,500 mg tablet 1,500 mg PO ONCE ICaps AREDS [id number],320-226-200 bzof-ef-halt capsule 1 cap PO DAILY hydrocodone-acetaminophen 7.5-325 mg tablet 1 tab PO BID PRN (Reason: pain) 30 Days Qty: 60 0RF Rx Instructions: fill on or after 12/03/21 abatacept (with maltose) [Orencia (with maltose)] IV pantoprazole 40 mg tablet,delayed release (DR/EC) See Rx Instructions .ROUTE .COMPLEX Qty: 180 1RF Dose Instruction: TAKE 1 TABLET BY MOUTH TWICE DAILY Rx Instructions: TAKE 1 TABLET BY MOUTH TWICE DAILY prednisone 5 mg tablet 5 mg PO DAILY Qty: 90 1RF vitamin B complex Capsule 1 cap PO DAILY losartan 100 mg tablet 100 mg PO DAILY diclofenac sodium 1 % gel 2 g topical QID Qty: 100 2RF Rx Instructions: apply to affected area as needed prednisone 20 mg tablet See Rx Instructions PO .COMPLEX PRN (Reason: joint pain flare) Qty: 30 1RF Rx Instructions: take 1 tab daily for 3-7 days as needed for arthritis flare PO PRN; mupirocin 2 % ointment 1 applic topical BID Qty: 22 0RF Discharge Orders: Discharge ED (Routine); Ordered 11/14/25 Ordered By: Amy Burch Referrals: Tony Bess DO [Primary Care Provider, [facility]] Patient Instructions: Rib Fracture (ED), Opioid Safety, Pain Management, Patient Portal & [place] Instructions, Fractures - Rib Activity Restrictions/Additional Instructions: As we discussed, imaging showed a nondisplaced 10th rib fracture. We discussed treating it with hydrocodone and ibuprofen in addition to ice and heat. Follow-up with primary care in 1 to 2 weeks if symptoms are not improving. As we discussed, I would like you to return to the emergency department for worsening or uncontrollable pain, shortness of breath or difficulty breathing, severe abdominal pain, abnormal bruising to your abdomen, lightheadedness/dizziness/low blood pressure, or any other concerns you may have. Print Language: Palestinian Coding Level of Care Code ED Hatchery Manager for Mery Delaney
[2025-11-14] MEDS: morphine 4 mg/mL SDV 1 mL IM (18:42)
[2025-11-14] MEDS: ondansetron 2 mg/ML SDV 2 mL 4 MG IM (18:43)
[2025-11-14] MEDS: HYDROmorphone 0.5 MG/0.5 ML INJ 1 MG SUBCUT (19:42)
[2025-11-14 20:01] VITALS: BP 142/7; PULSE 64; O2SAT 99
== END 2025-11-14 20:02 | disposition home or self-care (01) ==
PROVIDERS: Emergency Provider Physician Assistant; PCP Electrodiagnostic Medicine
DX: S22.32XA Fracture of one rib, left side, initial encounter for closed fracture (principal); Z87.891 Personal history of nicotine dependence; Z79.82 Long term (current) use of aspirin; W19.XXXA Unspecified fall, initial encounter
CPT/HCPCS: 71101; 96372; 99284; J1171; J1885; J2270; J2405